=== PATIENT | female | born 1925 | race Caucasian/White ===

== ENCOUNTER 2016-07-10 19:29 | Inpatient (IN) | payer MEDICARE ==
[2016-07-10] MEDS ORDERED: SODIUM CHLORIDE 0.9% 1,000 ML IV STA (20:28)
--- NOTE | 2016-07-10 20:33 | ED ---
General Adult HPI - General Chief complaint: Weakness Stated complaint: Weakness Time Seen by Provider: 07/10/16 20:17 Source: patient, family, EMS, RN notes reviewed Mode of arrival: EMS Limitations: no limitations - History of Present Illness Initial comments: Patient is a pleasant 89-year-old female presenting to emergency Department after being found by family on the floor. It is unclear exactly when the patient ended up on the floor. Patient states she took a shower last night and was doing well. Patient states it was too difficult to get into bed and therefore laid down on the ground. Patient left the message for family this morning however message was not checked until just prior to arrival. It is unclear if the patient has been on the floor since last night or early this morning. Patient has difficulty clarifying this. Patient does have a history of atrial fibrillation however does not take blood thinner. Patient states she feels fine at this time and has no complaints. Patient states she did not fall. Patient denies syncope. - Related Data Home Medications Medication Instructions Recorded Confirmed Calcium Carbonate/Vitamin D3 2 tab PO DAILY 03/23/15 07/10/16 [Calcium 600 + Vit D Tablet] Cholecalciferol [Vitamin D3] 2,000 unit PO DAILY 03/23/15 07/10/16 Digoxin [Digox] 125 mcg PO DAILY 03/23/15 07/10/16 Diltiazem HCl [Diltiazem 24Hr ER] 120 mg PO DAILY 03/23/15 07/10/16 Simvastatin [Simvastatin] 20 mg PO HS 03/23/15 07/10/16 Ubidecarenone [Co Q-10] 100 mg PO DAILY 03/23/15 07/10/16 Aspirin 81 mg PO HS 07/10/16 07/10/16 Latanoprost Ophth [Xalatan 0.005%] 1 drop OPHTHALMIC DAILY 07/10/16 07/10/16 Potassium Chloride [Klor-Con 10] 10 meq PO DAILY 07/10/16 07/10/16 Allergies Allergy/AdvReac Type Severity Reaction Status Date / Time No Known Allergies Allergy Verified 07/10/16 20:05 Review of Systems ROS Statement: Those systems with pertinent positive or pertinent negative responses have been documented in the HPI. ROS Other: All systems not noted in ROS Statement are negative. Constitutional: Denies: fever Eyes: Denies: eye pain ENT: Denies: ear pain Respiratory: Denies: dyspnea Cardiovascular: Denies: chest pain Endocrine: Denies: fatigue Gastrointestinal: Denies: abdominal pain Genitourinary: Denies: dysuria Musculoskeletal: Denies: back pain Skin: Denies: rash Neurological: Reports: weakness Past Medical History Past Medical History: Hypertension History of Any Multi-Drug Resistant Organisms: None Reported Past Surgical History: Adenoidectomy, Appendectomy, Cholecystectomy, Orthopedic Surgery, Tonsillectomy Past Psychological History: No Psychological Hx Reported Smoking Status: Never smoker Past Alcohol Use History: None Reported Past Drug Use History: None Reported General Exam Limitations: no limitations General appearance: alert, in no apparent distress Head exam: Present: atraumatic Eye exam: Present: normal appearance, PERRL ENT exam: Present: normal oropharynx Neck exam: Present: normal inspection. Absent: tenderness Respiratory exam: Present: normal lung sounds bilaterally Cardiovascular Exam: Present: irregular rhythm GI/Abdominal exam: Present: soft. Absent: tenderness Extremities exam: Present: full ROM, tenderness (Mild tenderness left lateral hip. No pain with range of motion) Neurological exam: Present: alert, oriented X3, CN II-XII intact. Absent: motor sensory deficit Expanded Patient oriented to: Present: person, place, time Speech: Present: fluid speech Cranial nerves: EOM's Intact: Normal, Facial Sensation: Normal Cerebellar function: Finger to Nose: Normal Sensory exam: Upper Extremity Light Touch: Normal, Lower Extremity Light Touch: Normal Motor strength exam: RUE: 5, LUE: 5, RLE: 5, LLE: 5 Eye Response: (4) open spontaneously Motor Response: (6) obeys commands Verbal Response: (5) oriented Psychiatric exam: Present: normal affect, normal mood Skin exam: Absent: rash Course Vital Signs 07/10/16 07/10/16 19:32 21:28 Temperature 97.9 F Pulse Rate 115 H 110 H Respiratory 22 18 Rate Blood Pressure 169/83 143/81 O2 Sat by Pulse 96 100 Oximetry EKG Findings - EKG Comments: EKG Findings:: A. fib with rate of 110. QRS 90. QT 338. QTC 457. Normal axis. Normal QRS. No acute ST change. Medical Decision Making - Medical Decision Making Patient reexamined and resting comfortably in bed. Patient and family updated on results and plan. Case was discussed in detail with Dr. Gamboa, who will admit for Dr. Gallo. - Lab Data Result diagrams: 07/10/16 20:45 07/10/16 20:45 Lab Results 07/10/16 07/10/16 07/10/16 Range/Units 20:45 20:45 20:45 WBC 14.4 H (3.8-10.6) k/uL RBC 4.41 (3.80-5.40) m/uL Hgb 13.1 (11.4-16.0) gm/dL Hct 40.6 (34.0-46.0) % MCV 92.2 (80.0-100.0) fL MCH 29.7 (25.0-35.0) pg MCHC 32.2 (31.0-37.0) g/dL RDW 12.3 (11.5-15.5) % Plt Count 241 (150-450) k/uL Neutrophils % 90 % Lymphocytes % 5 % Monocytes % 4 % Eosinophils % 0 % Basophils % 0 % Neutrophils # 13.0 H (1.3-7.7) k/uL Lymphocytes # 0.7 L (1.0-4.8) k/uL Monocytes # 0.6 (0-1.0) k/uL Eosinophils # 0.0 (0-0.7) k/uL Basophils # 0.0 (0-0.2) k/uL PT (9.0-12.0) sec INR (<1.1) APTT (22.0-30.0) sec Sodium 137 (137-145) mmol/L Potassium 3.5 (3.5-5.1) mmol/L Chloride 98 (98-107) mmol/L Carbon Dioxide 27 (22-30) mmol/L Anion Gap 12 mmol/L BUN 29 H (7-17) mg/dL Creatinine 0.40 L (0.52-1.04) mg/dL Est GFR (MDRD) Af Amer >60 (>60 ml/min/1.73 sqM) Est GFR (MDRD) Non-Af >60 (>60 ml/min/1.73 sqM) Glucose 125 H (74-99) mg/dL Calcium 8.4 (8.4-10.2) mg/dL Phosphorus 3.3 (2.5-4.5) mg/dL Magnesium 1.9 (1.6-2.3) mg/dL Total Bilirubin 0.8 (0.2-1.3) mg/dL AST 43 H (14-36) U/L ALT 39 (9-52) U/L Alkaline Phosphatase 76 (38-126) U/L Total Creatine Kinase 631 H (30-135) U/L CK-MB (CK-2) 6.1 H* (0.0-2.4) ng/mL CK-MB (CK-2) Rel Index 1.0 Troponin I 0.019 (0.000-0.034) ng/mL Total Protein 6.1 L (6.3-8.2) g/dL Albumin 3.5 (3.5-5.0) g/dL TSH 4.620 (0.465-4.680) mIU/L Free T4 0.99 (0.78-2.19) ng/dL Free T3 pg/mL 3.0 (2.8-5.3) pg/ml Urine Color Urine Appearance (Clear) Urine pH (5.0-8.0) Ur Specific Noonan (1.001-1.035) Urine Protein (Negative) Urine Glucose (UA) (Negative) Urine Ketones (Negative) Urine Blood (Negative) Urine Nitrate (Negative) Urine Bilirubin (Negative) Urine Urobilinogen (<2.0) mg/dL Ur Leukocyte Esterase (Negative) Urine RBC (0-5) /hpf Ur Squamous Epith Cells (0-4) /hpf Urine Bacteria (None) /hpf Hyaline Casts (0-2) /lpf Urine Mucus (None) /hpf Urine Sperm (None) /hpf Digoxin <0.4 ng/mL 07/10/16 07/10/16 Range/Units 20:45 20:45 WBC (3.8-10.6) k/uL RBC (3.80-5.40) m/uL Hgb (11.4-16.0) gm/dL Hct (34.0-46.0) % MCV (80.0-100.0) fL MCH (25.0-35.0) pg MCHC (31.0-37.0) g/dL RDW (11.5-15.5) % Plt Count (150-450) k/uL Neutrophils % % Lymphocytes % % Monocytes % % Eosinophils % % Basophils % % Neutrophils # (1.3-7.7) k/uL Lymphocytes # (1.0-4.8) k/uL Monocytes # (0-1.0) k/uL Eosinophils # (0-0.7) k/uL Basophils # (0-0.2) k/uL PT 11.3 (9.0-12.0) sec INR 1.1 (<1.1) APTT 24.4 (22.0-30.0) sec Sodium (137-145) mmol/L Potassium (3.5-5.1) mmol/L Chloride (98-107) mmol/L Carbon Dioxide (22-30) mmol/L Anion Gap mmol/L BUN (7-17) mg/dL Creatinine (0.52-1.04) mg/dL Est GFR (MDRD) Af Amer (>60 ml/min/1.73 sqM) Est GFR (MDRD) Non-Af (>60 ml/min/1.73 sqM) Glucose (74-99) mg/dL Calcium (8.4-10.2) mg/dL Phosphorus (2.5-4.5) mg/dL Magnesium (1.6-2.3) mg/dL Total Bilirubin (0.2-1.3) mg/dL AST (14-36) U/L ALT (9-52) U/L Alkaline Phosphatase (38-126) U/L Total Creatine Kinase (30-135) U/L CK-MB (CK-2) (0.0-2.4) ng/mL CK-MB (CK-2) Rel Index Troponin I (0.000-0.034) ng/mL Total Protein (6.3-8.2) g/dL Albumin (3.5-5.0) g/dL TSH (0.465-4.680) mIU/L Free T4 (0.78-2.19) ng/dL Free T3 pg/mL (2.8-5.3) pg/ml Urine Color Yellow Urine Appearance Turbid H (Clear) Urine pH 6.5 (5.0-8.0) Ur Specific [place]onan 1.012 (1.001-1.035) Urine Protein 1+ H (Negative) Urine Glucose (UA) Negative (Negative) Urine Ketones 1+ H (Negative) Urine Blood Moderate H (Negative) Urine Nitrate Negative (Negative) Urine Bilirubin Negative (Negative) Urine Urobilinogen <2.0 (<2.0) mg/dL Ur Leukocyte Esterase Moderate H (Negative) Urine RBC 66 H (0-5) /hpf Ur Squamous Epith Cells 4 (0-4) /hpf Urine Bacteria Rare H (None) /hpf Hyaline Casts 21 H (0-2) /lpf Urine Mucus Many H (None) /hpf Urine Sperm Occasional H (None) /hpf Digoxin ng/mL - Radiology Data Radiology results: image reviewed (Chest x-ray shows cardiac megaly. Possible asbestosis related disease. Pelvic x-ray shows no fracture or dislocation. Retained fecal debris. Computed tomography scan the brain shows no acute hemorrhage.) Disposition Clinical Impression: Syncope, Urinary tract infection Disposition: ADMITTED IP TO THIS HOSP
[2016-07-10 20:57] LABS: Basophils % (A) 0 %; CH 31.2; Eosinophils % (A) 0 %; HCT 40.6 % (34.0-46.0); HDW 2.61; HGB 13.1 gm/dL (11.4-16.0); Luc # (Auto) 0.09; Luc % (Auto) 1; Lymphocytes # (A) 0.7 k/uL (1.0-4.8); Lymphocytes % (A) 5 %; MCH 29.7 pg (25.0-35.0); MCHC 32.2 g/dL (31.0-37.0); MCV 92.2 fL (80.0-100.0); Mean Platelet Volume 7.6; Monocytes # (A) 0.6 k/uL (0-1.0); Monocytes % (A) 4 %; Neutrophils % (A) 90 %; RBC 4.41 m/uL (3.80-5.40); RDW 12.3 % (11.5-15.5); WBC 14.4 k/uL (3.8-10.6); WBC (Perox) 14.98
[2016-07-10 21:08] LABS: INR 1.1 (<1.1); Partial Thromboplastin Time 24.4 sec (22.0-30.0); Prothrombin Time 11.3 sec (9.0-12.0)
[2016-07-10 21:10] LABS: ALT 39 U/L (9-52); AST 43 U/L (14-36); Alkaline Phosphatase 76 U/L (38-126); Anion Gap 12 mmol/L; Blood Urea Nitrogen 29 mg/dL (7-17); Calcium 8.4 mg/dL (8.4-10.2); Carbon Dioxide 27 mmol/L (22-30); Chloride 98 mmol/L (98-107); Digoxin <0.4 ng/mL; Glucose 125 mg/dL (74-99); Magnesium 1.9 mg/dL (1.6-2.3); Non-African American GFR(MDRD) >60 (>60 ml/min/1.73 sqM); Phosphorous 3.3 mg/dL (2.5-4.5); Potassium 3.5 mmol/L (3.5-5.1); Sodium 137 mmol/L (137-145); Total Bilirubin 0.8 mg/dL (0.2-1.3); Total Protein 6.1 g/dL (6.3-8.2)
[2016-07-10 21:11] LABS: Appearance,Urine Turbid (Clear); Bacteria,Urine Rare /hpf; Bilirubin,Urine Negative (Negative); Glucose,Urine (UA) Negative (Negative); Ketones,Urine 1+ (Negative); Leukocyte Esterase,Urine Moderate (Negative); Mucus,Urine Many /hpf; Nitrite,Urine Negative (Negative); PH, Urine 6.5 (5.0-8.0); Particle Count 25376; Protein,Urine 1+ (Negative); RBC,Urine 66 /hpf (0-5); Specific Gravity,Urine 1.012 (1.001-1.035); Squamous Epithelial Cell,Urine 4 /hpf (0-4); UA Billing (MACRO vs. MICRO) MICRO; Urobilinogen,Urine <2.0 mg/dL (<2.0)
--- NOTE | 2016-07-10 21:29 | CT ---
EXAMINATION TYPE: CT brain wo con DATE OF EXAM: 07/10/2016 9:09 PM COMPARISON: NONE HISTORY: weakness and fatigue CT DLP: 1047.1 mGycm Automated exposure control for dose reduction was used. FINDINGS: There is no acute intracranial hemorrhage, mass effect, or midline shift identified. There is cortica l atrophy present. Periventricular white matter demyelination is likely due to age-related chronic sm all vessel ischemia. The globes are intact and the visualized sinuses are clear. IMPRESSION: No acute intracranial hemorrhage, mass effect, or midline shift is seen.
--- NOTE | 2016-07-10 21:31 | XR ---
AP pelvis HISTORY: Trauma and pain Single frontal view of the pelvis No comparisons Bone mineralization is reduced. Joint space and alignment are maintained. Retained fecal debris prese nt throughout the distribution of the colon. Degenerative disc changes, scoliosis suspected in the amadou mbar spine. IMPRESSION: No fracture or dislocation is evident.
--- NOTE | 2016-07-10 21:33 | XR ---
EXAMINATION TYPE: XR chest 2V DATE OF EXAM: 07/10/2016 9:11 PM COMPARISON: NONE HISTORY: Fall, hypertension TECHNIQUE: Frontal and lateral views of the chest are obtained. FINDINGS: Patient is rotated. Apical pleural thickening, pleural calcification is noted. Heart may b e enlarged. No evident pneumonia, pneumothorax, or pleural effusion. Pulmonary vascularity and esther w ithin normal limits. Rib deformities are questionable age. Bone mineralization is reduced. IMPRESSION: Rotated exam. Cardiomegaly, possible asbestos related disease, comparison with old chest x-rays if available would be of benefit. Consider PA and lateral chest x-ray follow-up if patient is clinically stable. Difficult to exclude left-sided rib fractures.
[2016-07-10 21:35] LABS: Troponin I 0.019 ng/mL (0.000-0.034)
[2016-07-10 21:48] LABS: Creatine Kinase MB 6.1 ng/mL (0.0-2.4)
[2016-07-10] MEDS ORDERED: NALOXONE 0.4 MG/ML 1 ML VIAL IV PRN (22:10)
[2016-07-10] MEDS: SODIUM CHLORIDE 0.9% 1,000 ML IV SCH (23:00)
[2016-07-11] MEDS ORDERED: DILTIAZEM CD 120 MG CAP.ER.24H PO STA (01:01)
[2016-07-11 03:55] LABS: Creatine Kinase MB 4.6 ng/mL (0.0-2.4)
[2016-07-11 07:24] LABS: Amorphous Sediment,Urine Occasional /hpf; Appearance,Urine Cloudy (Clear); Bilirubin,Urine Negative (Negative); Glucose,Urine (UA) Negative (Negative); Ketones,Urine 1+ (Negative); Leukocyte Esterase,Urine Negative (Negative); Nitrite,Urine Negative (Negative); Particle Count 9714; Protein,Urine Trace (Negative); RBC,Urine 3 /hpf (0-5); Specific Gravity,Urine 1.011 (1.001-1.035); UA Billing (MACRO vs. MICRO) MICRO; Urobilinogen,Urine <2.0 mg/dL (<2.0)
[2016-07-11] MEDS ORDERED: NON-FORMULARY DRUG (Ubidecarenone [Co Q-10] 100 MG) PO SCH (09:00)
[2016-07-11] MEDS ORDERED: DIGOXIN 125 MCG TAB PO SCH (09:00)
[2016-07-11] MEDS: CHOLECALCIFEROL 1,000 UNIT TAB PO SCH (09:04)
[2016-07-11] MEDS: DILTIAZEM CD 120 MG CAP.ER.24H PO SCH (09:04)
[2016-07-11] MEDS: CALCIUM CARB-VIT D 500MG-200UN 1 EACH TAB PO SCH (09:05)
[2016-07-11] MEDS: FAMOTIDINE 20 MG TAB PO SCH ×2 (09:05→20:49)
[2016-07-11] MEDS: POTASSIUM CHLORIDE ER 10 MEQ TAB.ER.PRT PO SCH (09:05)
[2016-07-11] MEDS: SODIUM CHLORIDE 0.9% 1,000 ML IV SCH ×3 (09:06→23:12)
[2016-07-11 11:03] LABS: Creatine Kinase MB 3.7 ng/mL (0.0-2.4)
--- NOTE | 2016-07-11 11:39 | ECHOF ---
Referral Reason:Syncope MEASUREMENTS -------- HEIGHT: 152.4 cm WEIGHT: 43.1 kg BP: 139/75 RVIDd: 2.7 cm (< 3.3) IVSd: 1.2 cm (0.6 - 1.1) LVIDd: 3.0 cm (3.9 - 5.3) LVPWd: 1.2 cm (0.6 - 1.1) IVSs: 1.4 cm LVIDs: 2.1 cm LVPWs: 1.7 cm LA Diam: 4.0 cm (2.7 - 3.8) LAESV Index (A-L): 47.67 ml/m Ao Diam: 3.0 cm (2.0 - 3.7) AV Cusp: 1.8 cm (1.5 - 2.6) LA Diam: 3.9 cm (2.7 - 3.8) MV EXCURSION: 16.269 mm (> 18.000) MV EF SLOPE: 106 mm/s (70 - 150) EPSS: 0.8 cm RAP: 5.00 mmHg RVSP: 31.50 mmHg FINDINGS -------- Atrial fibrillation. This was a technically good study. There is borderline concentric left ventricular hypertrophy. Overall left ventricular systolic function is normal with, an EF between 55 - 60 %. The right ventricle is normal in size. LA is severely dilated >40 ml/m2 RA appears enlarged. Aortic valve is trileaflet and is mildly thickened. The mitral valve leaflets are mildly thickened. Mild mitral annular calcification present. [id number]-yk-[id number] mitral regurgitation is present. Mild tricuspid regurgitation present. The right ventricular systolic pressure, as measured by Doppler, is 31.50mmHg. Trace/mild (physiologic) pulmonic regurgitation. The aortic root size is normal. Normal inferior vena cava with normal inspiratory collapse consistent with estimated right atrial pressure of 5 mmHg. The pericardium is normal. CONCLUSIONS -------- 1. Atrial fibrillation. 2. Mild mitral annular calcification present. 3. Ttbe-zh-[id number] mitral regurgitation is present. 4. Mild tricuspid regurgitation present. 5. The right ventricular systolic pressure, as measured by Doppler, is 31.50mmHg. 6. Trace/mild (physiologic) pulmonic regurgitation. 7. The aortic root size is normal. 8. The pericardium is normal. 9. This was a technically good study. 10. There is borderline concentric left ventricular hypertrophy. 11. Overall left ventricular systolic function is normal with, an EF between 55 - 60 %. 12. The right ventricle is normal in size. 13. LA is severely dilated >40 ml/m2 14. RA appears enlarged. 15. Aortic valve is trileaflet and is mildly thickened. 16. The mitral valve leaflets are mildly thickened. CARDIOVASCULAR TECH: Lina Barlow RDCS
--- NOTE | 2016-07-11 11:52 | P.HPIM ---
History of Present Illness H&P Date: 07/11/16 Chief Complaint: Fall 84-year-old lady with history of atrial fibrillation kyphoscoliosis is admitted to the hospital after being found on the floor by his son. She apparently was in good health until Saturday patient went to [place] by car and returned on Saturday evening. Patient stated that she was not eating her usual amount of food or oral intake. Patient apparently went to take a shower on the second floor and that was last evening she remembered. Patient denies having any dizziness at this time. Patient denies having any pain in any of her extremities. In the ER a computed tomography scan of the head was done which does not reveal any abnormality. A pelvis x-ray was also negative for any occult fractures. Patient currently states to be feeling significantly better. Denies having any urinary urgency or frequency. Denies having any abdominal pain fevers nausea vomiting or diarrhea as well. The yszidlkk-my-lel was at bedside who states that her oral intake is significantly low states that her caloric intake is maybe around 800 everette per day. Patient also states to have decreased oral intake in regards to fluids. Review of Systems All systems: negative (noted In HPI) Past Medical History Past Medical History: Atrial Fibrillation, CVA/TIA, Hearing Disorder / Deafness , Hypertension, Rheumatoid Arthritis (RA) Additional Past Medical History / Comment(s): Patient says she had a "questionable stroke" but was not "disabled by it." History of Any Multi-Drug Resistant Organisms: None Reported Past Surgical History: Adenoidectomy, Appendectomy, Cholecystectomy, Orthopedic Surgery, Tonsillectomy Past Anesthesia/Blood Transfusion Reactions: No Reported Reaction Past Psychological History: No Psychological Hx Reported Smoking Status: Never smoker Past Alcohol Use History: Occasional Additional Past Alcohol Use History / Comment(s): Says she occasionally has a glass of wine. Past Drug Use History: None Reported - Past Family History Sister(s) Additional Family Medical History / Comment(s): Brain tumor- in her 50's. Medications and Allergies Home Medications Medication Instructions Recorded Confirmed Type Calcium Carbonate/Vitamin D3 2 tab PO DAILY 03/23/15 07/10/16 History [Calcium 600 + Vit D Tablet] Cholecalciferol [Vitamin D3] 2,000 unit PO DAILY 03/23/15 07/10/16 History Digoxin [Digox] 125 mcg PO DAILY 03/23/15 07/10/16 History Diltiazem HCl [Diltiazem 24Hr ER] 120 mg PO DAILY 03/23/15 07/10/16 History Simvastatin [Simvastatin] 20 mg PO HS 03/23/15 07/10/16 History Ubidecarenone [Co Q-10] 100 mg PO DAILY 03/23/15 07/10/16 History Aspirin 81 mg PO HS 07/10/16 07/10/16 History Latanoprost Ophth [Xalatan 0.005%] 1 drop OPHTHALMIC DAILY 07/10/16 07/10/16 History Potassium Chloride [Klor-Con 10] 10 meq PO DAILY 07/10/16 07/10/16 History Allergies Allergy/AdvReac Type Severity Reaction Status Date / Time No Known Allergies Allergy Verified 07/10/16 20:05 Physical Exam Vitals: Vital Signs Temp Pulse Pulse Resp BP BP Pulse Ox 07/11/16 08:00 97.6 F 98 18 118/64 98 07/11/16 04:00 97.4 F L 109 H 16 139/75 99 07/11/16 00:15 98.5 F 110 H 16 125/74 98 07/10/16 23:17 97.2 F L 105 H 16 138/67 98 07/10/16 22:42 98.5 F 110 H 18 125/74 98 07/10/16 22:25 97.9 F 102 H 16 128/89 94 L Intake and Output 07/10/16 07/11/16 07/11/16 22:59 06:59 14:59 Intake Total 800 Output Total 1700 100 Balance -900 -100 Intake: IV 800 Sodium Chloride 0.9% 1, 800 000 ml @ 100 mls/hr IV . Q10H STA Rx#:[id number] Oral 0 Output: Urine 1700 100 Other: Voiding Method Incontinent # Bowel Movements 1 Weight 43.4 kg 43.2 kg 43.2 kg Patient Weight 07/12/16 06:59 Weight 43.2 kg Gen Appearance alert oriented 3 in no distress Lungs currently clear to auscultation Abdomen is soft nontender no organomegaly Neurologically no focal motor or sensory deficit patient Heart regular rate and rhythm no murmurs appreciated Results CBC & Chem 7: 07/10/16 20:45 07/10/16 20:45 Labs: Abnormal Lab Results - Last 24 Hours (Table) 07/11/16 07/11/16 07/11/16 Range/Units 03:06 05:20 09:21 Total Creatine Kinase 568 H 496 H (30-135) U/L CK-MB (CK-2) 4.6 H* 3.7 H* (0.0-2.4) ng/mL Urine Appearance Cloudy H (Clear) Urine Protein Trace H (Negative) Urine Ketones 1+ H (Negative) Amorphous Sediment Occasional H (None) /hpf Thrombosis Risk Factor Assmnt - Choose All That Apply Each Risk Factor Represents 3 Points: Age 75 years or older Thrombosis Risk Factor Assessment Total Risk Factor Score: 3 Thrombosis Risk Factor Assessment Level: Moderate Risk Assessment and Plan Plan: #1 fall appears secondary to presyncope likely from dehydration. Vasovagal episode #2 history of chronic atrial fibrillation #3 kyphoscoliosis #4 rheumatoid arthritis #5 history of hypertension #6 leukocytosis likely reactive Plan We'll have PT and OT consulted. A dietitian to be consulted in regards to caloric intake. Patient will have orthostatics done. Continue IV fluids. I will discontinue that her back as patient does not have any symptoms. Patient did have significant amount of hyaline casts which is diagnostic in regards to being dehydrated. Continue ongoing care will likely discharge the patient next 24-48 hours.
[2016-07-11] MEDS: LATANOPROST 0.005% OPHTH DROPS 2.5 ML BTL BOTH EYES SCH (15:51)
[2016-07-11] MEDS: ASPIRIN 81 MG CHEW PO SCH (20:49)
[2016-07-11] MEDS: ATORVASTATIN 10 MG TAB PO SCH (20:49)
--- NOTE | 2016-07-11 20:50 | P.CNNES ---
History of Present Illness Consult date: 07/11/16 Reason for Consult: Patient with vasovagal syncope History of Present Illness: This patient is a 89-year-old right-handed white female who was admitted to Hospital after being found collapsed in her home. Patient is living alone in her own home. Apparently she was in good health Saturday and had recently made a trip to [place] to visit with family and friends. She was not eating very much and had a hard time getting back on track after returning home on 2016. Apparently she had gone up to use the bathroom and had difficulty to get onto the commode. She did feel extremely weak. She denies collapsing to the floor but states that she slowly lay down on the floor to wait for some help. Apparently she has neighbors who will watch her closely on a daily basis. They noted that she was not opening her blinds in her bedroom and they did come to check on her. They found her on the floor and immediately called EMS. She was brought into the emergency room where she was further evaluated by Dr. Rogel and was sent for a computed tomography scan of the brain. A CAT scan of the brain was negative for any acute stroke or hemorrhage. Patient does have a history of chronic atrial fibrillation. She once again denied any actual syncopal episode associated with this recent spell. She is also been treated in has a history of TIA symptoms in the past. She was also sent for laboratory testing in the emergency room and had evidence of a severe dehydration. She was started on IV fluids. She has had poor oral fluid intake over the last 2 weeks. She does have a history of chronic atrial fibrillation with good ventricular response. She has not had any recent strokelike symptoms. Since admission to the hospital she has noted improvement in her overall strength. She apparently also is nutritionally poor diet maintained patient and does require the use of ensure on a daily basis at home. Patient does apparently live alone in her home and has not had any similar episodes recently. She did undergo routine EEG today for further evaluation of syncope. This EEG is normal for age. She does seem to show improvement overall since admission with aggressive IV hydration. Neurology is now been consulted for further evaluation and recommendations. Review of Systems Constitutional: Denies chills, Denies fever Eyes: denies blurred vision, denies pain Ears, nose, mouth and throat: Denies headache, Denies sore throat Cardiovascular: Denies chest pain, Denies shortness of breath Respiratory: Denies cough Gastrointestinal: Denies abdominal pain, Denies diarrhea, Denies nausea, Denies vomiting Genitourinary: Denies dysuria, Denies hematuria Musculoskeletal: Denies myalgias Integumentary: Denies pruritus, Denies rash Neurological: Reports syncope, Denies numbness, Denies weakness Psychiatric: Denies anxiety, Denies depression Endocrine: Denies fatigue, Denies weight change Past Medical History Past Medical History: Atrial Fibrillation, CVA/TIA, Hearing Disorder / Deafness , Hypertension, Rheumatoid Arthritis (RA) Additional Past Medical History / Comment(s): Patient says she had a "questionable stroke" but was not "disabled by it." History of Any Multi-Drug Resistant Organisms: None Reported Past Surgical History: Adenoidectomy, Appendectomy, Cholecystectomy, Orthopedic Surgery, Tonsillectomy Past Anesthesia/Blood Transfusion Reactions: No Reported Reaction Past Psychological History: No Psychological Hx Reported Smoking Status: Never smoker Past Alcohol Use History: Occasional Additional Past Alcohol Use History / Comment(s): Says she occasionally has a glass of wine. Past Drug Use History: None Reported - Past Family History Sister(s) Additional Family Medical History / Comment(s): Brain tumor- in her 50's. Medications and Allergies Home Medications Medication Instructions Recorded Confirmed Type Calcium Carbonate/Vitamin D3 2 tab PO DAILY 03/23/15 07/10/16 History [Calcium 600 + Vit D Tablet] Cholecalciferol [Vitamin D3] 2,000 unit PO DAILY 03/23/15 07/10/16 History Digoxin [Digox] 125 mcg PO DAILY 03/23/15 07/10/16 History Diltiazem HCl [Diltiazem 24Hr ER] 120 mg PO DAILY 03/23/15 07/10/16 History Simvastatin [Simvastatin] 20 mg PO HS 03/23/15 07/10/16 History Ubidecarenone [Co Q-10] 100 mg PO DAILY 03/23/15 07/10/16 History Aspirin 81 mg PO HS 07/10/16 07/10/16 History Latanoprost Ophth [Xalatan 0.005%] 1 drop OPHTHALMIC DAILY 07/10/16 07/10/16 History Potassium Chloride [Klor-Con 10] 10 meq PO DAILY 07/10/16 07/10/16 History Allergies Allergy/AdvReac Type Severity Reaction Status Date / Time No Known Allergies Allergy Verified 07/10/16 20:05 Physical Examination - Vital Signs Vital Signs: Vital Signs Temp Pulse Pulse Resp BP BP BP 07/11/16 12:37 115/59 07/11/16 12:00 89 18 07/11/16 08:02 07/11/16 08:00 97.6 F 98 18 118/64 07/11/16 04:00 97.4 F L 109 H 16 139/75 07/11/16 00:15 98.5 F 110 H 16 125/74 07/10/16 23:17 97.2 F L 105 H 16 138/67 07/10/16 22:42 98.5 F 110 H 18 125/74 07/10/16 22:25 97.9 F 102 H 16 128/89 BP BP Pulse Ox 07/11/16 12:37 104/62 94/57 07/11/16 12:00 94/57 96 07/11/16 08:02 96 07/11/16 08:00 98 07/11/16 04:00 99 07/11/16 00:15 98 07/10/16 23:17 98 07/10/16 22:42 98 07/10/16 22:25 94 L Intake and Output 07/11/16 07/11/16 07/11/16 06:59 14:59 22:59 Intake Total 800 Output Total 1700 100 500 Balance -900 -100 -500 Intake: IV 800 Sodium Chloride 0.9% 1, 800 000 ml @ 100 mls/hr IV . Q10H STA Rx#:[id number] Oral 0 Output: Urine 1700 100 500 Straight 500 Other: Voiding Method Incontinent # Bowel Movements 1 Weight 43.2 kg 43.2 kg Patient Weight 07/12/16 06:59 Weight 43.2 kg - Constitutional General appearance: cooperative - EENT EENT: PERRL, mucous membranes moist - Respiratory Respiratory: lungs clear, normal breath sounds - Cardiovascular Cardiovascular: normal S1, normal S2 Extremities: no peripheral edema bilaterally - Gastrointestinal Gastrointestinal: normoactive bowel sounds - Integumentary Integumentary: normal - Neurologic Cranial nerve examination: PERRL, EOMI, VFF, V1/V2/V3 grossly intact, face symmetric, tongue midline, intact gag reflex, intact corneal reflex, normal palatal elevation Speech examination: intact Sensorimotor examination: intact Detailed motor examination: grossly full strength in all extremities Detailed sensory examination: intact Reflex and gait examination: intact Reflexes: 1+: ankle, bicep, knee, tricep - Musculoskeletal Musculoskeletal: no pain - Psychiatric Psychiatric: mood/affect appropriate, cooperative Results - Laboratory Findings CBC and BMP: 07/10/16 20:45 07/10/16 20:45 Abnormal Lab Findings: Abnormal Labs 07/11/16 07/11/16 07/11/16 03:06 05:20 09:21 Total Creatine Kinase 568 H 496 H CK-MB (CK-2) 4.6 H* 3.7 H* Urine Appearance Cloudy H Urine Protein Trace H Urine Ketones 1+ H Amorphous Sediment Occasional H Assessment and Plan (1) Vasovagal syncope Status: Acute Code(s): R55 - SYNCOPE AND COLLAPSE (2) Urinary tract infection Status: Acute Code(s): N39.0 - URINARY TRACT INFECTION, SITE NOT SPECIFIED Plan: This patient is a 89-year-old female who was admitted to hospital after being found at home collapsed on the floor. Patient denies passing out but actually felt weak and late herself onto the floor in her home. Neighbors found her and immediately called EMS and she was brought into the emergency room for further evaluation. Maria Guadalupe when a computed tomography scan of the brain which was negative for acute stroke or hemorrhage. She was initially admitted to hospital for further evaluation. She underwent routine EEG today which was reviewed. Her EEG is normal for age. There was no evidence of any epileptic seizure focus. Patient has been extremely dehydrated as has been noted on her urinalysis. She has been started on IV hydration and is shown significant improvement since admission to hospital. Her neurological examination at this time is nonfocal. This patient likely had a vasovagal syncope secondary to dehydration. We will continue close neurological follow-up for this patient. She does have a history of underlying atrial fibrillation which remains rate controlled. Her overall prognosis at this time remains fair. Time with Patient: Greater than 30
[2016-07-12] MEDS: SODIUM CHLORIDE 0.9% 1,000 ML IV SCH ×3 (06:42→23:34)
[2016-07-12] MEDS: CHOLECALCIFEROL 1,000 UNIT TAB PO SCH (07:31)
[2016-07-12] MEDS: LATANOPROST 0.005% OPHTH DROPS 2.5 ML BTL BOTH EYES SCH (07:31)
[2016-07-12] MEDS: DILTIAZEM CD 120 MG CAP.ER.24H PO SCH (07:31)
[2016-07-12] MEDS: CALCIUM CARB-VIT D 500MG-200UN 1 EACH TAB PO SCH (07:31)
[2016-07-12] MEDS: POTASSIUM CHLORIDE ER 10 MEQ TAB.ER.PRT PO SCH (07:32)
[2016-07-12] MEDS: FAMOTIDINE 20 MG TAB PO SCH ×2 (07:32→20:05)
--- NOTE | 2016-07-12 12:24 | EEG ---
DATE OF SERVICE: 07/11/2016 INDICATIONS FOR EXAMINATION: This patient is an 89-year-old female being evaluated for syncope and collapse. AGE: 89Y EEG FINDINGS: A routine 21-channel, awake digital EEG recording was accomplished utilizing the 10 to 20 international system with bipolar and referential montages. The background activity in the most alert resting state consists of a low to medium amplitude, fairly well-developed and well-sustained 7 to 8 Hz activity over the posterior head regions. This posterior rhythm attenuates to eye opening. There is a small amount of low amplitude 18 to 20 Hz beta activity seen maximally over the anterior head regions. Muscle and movement artifact was observed on a few occasions during the tracing. Hyperventilation was not performed. Photic stimulation at flash frequencies of 2 to 30 Hz produced a minimal occipital driving response. No epileptiform discharges were seen. IMPRESSION: This EEG is within normal limits for the patient's age. The EEG failed to reveal any focal, lateralized or epileptiform abnormalities. Clinical correlation is recommended.
--- NOTE | 2016-07-12 19:37 | P.PN ---
Subjective Principal diagnosis: fall 82-year-old female is admitted to the hospital after sustaining a fall. Is attributed to be likely vasovagal in nature. Patient was also noted to have urinary retention. She currently has a Abarca catheter placed. Patient denies having any urinary urgency or frequency. However, did note some blood in the urine. Currently states to be feeling better denies having any fevers chills nausea vomiting or diarrhea. Objective - Vital Signs Vital signs: Vital Signs Temp 97.3 F L 07/12/16 16:00 Pulse 90 07/12/16 16:00 Resp 18 07/12/16 16:00 BP 113/53 07/12/16 16:00 Pulse Ox 97 07/12/16 16:00 Intake & Output 07/12/16 07/12/16 07/13/16 06:59 18:59 06:59 Intake Total 1240 940 Output Total 1300 775 Balance -60 165 Weight 45.1 kg Intake: IV 840 700 Sodium Chloride 0.9% 1, 840 700 000 ml @ 120 mls/hr IV . Q8H20M JAV[facility] Rx#:[id number] Oral 400 240 Output: Urine 1300 775 Straight 500 Other: Voiding Method Indwelling Catheter Indwelling Catheter - Exam Physical exam Abdomen soft nontender no organomegaly Heart S1 and S2 heart regular rate and rhythm no murmurs appreciated Lungs good air entry clear to auscultation Neuro no focal motor or sensory deficits noted. Cranial nerves II-12 intact General in no acute distress alert oriented [address] - Labs CBC & Chem 7: 07/10/16 20:45 07/10/16 20:45 Assessment and Plan Plan: #1 fall appears secondary to presyncope likely from dehydration. Vasovagal episode #2 history of chronic atrial fibrillation #3 kyphoscoliosis #4 rheumatoid arthritis #5 history of hypertension #6 leukocytosis likely secondary to acute cystitis causing urinary retention. Plan We'll have PT and OT consulted. A dietitian to be consulted in regards to caloric intake. Patient appears to be improved. With urinary retention was attributed to acute cystitis and likely discharge the patient a course of antibodies. Patient will benefit from subacute rehabilitation.
[2016-07-12] MEDS: ATORVASTATIN 10 MG TAB PO SCH (20:05)
[2016-07-12] MEDS: ASPIRIN 81 MG CHEW PO SCH (20:05)
--- NOTE | 2016-07-13 00:58 | P.PN ---
Subjective This patient is a 89 year old female being followed for recent syncopal episode and collapse. The patient was extremely dehydrated on admission to hospital. She had recently taken a long trip to [place] and had been not paying attention to her regular diet. She came back and was very dehydrated and had an episode of collapse while at home. Neighbors found her and called EMS and she was admitted to the hospital. Patient has evidence of acute cystitis which also may have contributed to dehydration. She was admitted for further evaluation of syncope versus seizure. She underwent a routine EEG today which was reviewed and is entirely normal with no evidence of epileptic seizure focus. The patient is doing much better today after receiving IV hydration and antibiotic therapy. She mentions that she is being considered for transfer to a subacute rehab for short period before returning home. Her neurological examination remains nonfocal. She does appear to be more awake and alert and is following all commands. We will continue close neurological follow-up for the patient during this admission. Objective - Vital Signs Vital signs: Vital Signs Temp 97.3 F L 07/12/16 16:00 Pulse 90 07/12/16 16:00 Resp 18 07/12/16 16:00 BP 113/53 07/12/16 16:00 Pulse Ox 97 07/12/16 16:00 Intake & Output 07/12/16 07/12/16 07/13/16 06:59 18:59 06:59 Intake Total 1240 940 Output Total 1300 775 Balance -60 165 Weight 45.1 kg Intake: IV 840 700 Sodium Chloride 0.9% 1, 840 700 000 ml @ 120 mls/hr IV . Q8H20M [facility] Rx#:[id number] Oral 400 240 Output: Urine 1300 775 Straight 500 Other: Voiding Method Indwelling Catheter Indwelling Catheter - Exam Physical examination: PHYSICAL EXAMINATION: Patient is resting comfortably in bed. VITAL SIGNS: Blood pressure is [110/62]. Heart rate is [97]. Respiration is [18] . Temperature is [98.5]. HEENT: Head is atraumatic, neck is supple, there were no carotid bruits. CHEST: Lungs are clear to auscultation and percussion. CARDIAC: S1, S2 normal rate and rhythm. There is no murmur. ABDOMEN: Soft and nontender. Bowel sounds are present. EXTREMITIES: There is no pedal edema. Peripheral pulses are present. NEUROLOGICAL EXAMINATION: MENTAL STATUS: Patient is awake, alert, oriented x3. Speech is fluent with no evidence of aphasia or dysarthria. Memory and intellectual function are appropriate for age. CRANIAL NERVE EXAMINATION: Cranial nerves 2 through 12 are grossly intact. MOTOR EXAMINATION: There was no pronator drift. Muscle tone is normal. Muscle strength testing reveal 4/5 strength throughout. SENSORY EXAMINATION: Intact to pinprick, light touch, vibration and proprioception. DEEP TENDON REFLEXES: 1+ and symmetric. Plantar response is flexor bilaterally. COORDINATION AND GAIT: Finger-nose testing and rapid alternating movements are normal. Patient has a normal based gait. - Labs CBC & Chem 7: 07/10/16 20:45 07/10/16 20:45 Assessment and Plan (1) Vasovagal syncope Status: Acute Code(s): R55 - SYNCOPE AND COLLAPSE (2) Urinary tract infection Status: Acute Code(s): N39.0 - URINARY TRACT INFECTION, SITE NOT SPECIFIED Plan: This patient is a 89-year-old female who was admitted to hospital after being found at home collapsed on the floor. Patient denies passing out but actually felt weak and late herself onto the floor in her home. Neighbors found her and immediately called EMS and she was brought into the emergency room for further evaluation. Maria Guadalupe when a computed tomography scan of the brain which was negative for acute stroke or hemorrhage. She was initially admitted to hospital for further evaluation. She underwent routine EEG today which was reviewed. Her EEG is normal for age. There was no evidence of any epileptic seizure focus. Patient has been extremely dehydrated as has been noted on her urinalysis. She has been started on IV hydration and is shown significant improvement since admission to hospital. Her neurological examination at this time is nonfocal. This patient likely had a vasovagal syncope secondary to dehydration. We will continue close neurological follow-up for this patient. We did review her recent EEG study. Her EEG is normal for age. There was no evidence of any epileptic seizure focus. She has responded very well to IV hydration. She is also being treated for acute cystitis. She is being considered for transfer to subacute rehabilitation for a short period of time before returning home. She does have a history of underlying atrial fibrillation which remains rate controlled. Her overall prognosis at this time remains fair. Patient's overall neurological status has improved since admission. We will continue to monitor her progress for a closely.
[2016-07-13] MEDS: LATANOPROST 0.005% OPHTH DROPS 2.5 ML BTL BOTH EYES SCH (09:05)
[2016-07-13] MEDS: POTASSIUM CHLORIDE ER 10 MEQ TAB.ER.PRT PO SCH (09:06)
[2016-07-13] MEDS: DILTIAZEM CD 120 MG CAP.ER.24H PO SCH (09:06)
[2016-07-13] MEDS: FAMOTIDINE 20 MG TAB PO SCH ×2 (09:06→19:56)
[2016-07-13] MEDS: CHOLECALCIFEROL 1,000 UNIT TAB PO SCH (09:07)
[2016-07-13] MEDS: CALCIUM CARB-VIT D 500MG-200UN 1 EACH TAB PO SCH (09:07)
--- NOTE | 2016-07-13 11:08 | P.DS ---
Providers Date of admission: 07/10/16 22:11 Expected date of discharge: 07/13/16 Attending physician: Micha Gamboa Primary care physician: Seth Gallo [facility] Course: #1 fall appears secondary to presyncope likely from dehydration. Vasovagal episode #2 history of chronic atrial fibrillation #3 kyphoscoliosis #4 rheumatoid arthritis #5 history of hypertension #6 leukocytosis likely secondary to acute cystitis causing urinary retention. Patient was admitted to the hospital with the vasovagal episode. Patient was given IV fluids. On the initial urinalysis patient had trace bacteria however had significant amount hyaline casts consistent with dehydration. Patient apparently traveled to [place] prior to being admitted to the hospital states her oral intake has been significantly low. Patient also was noted to have urinary retention which was attribute it to acute cystitis. A Echavarrai catheter was inserted however trials of removing the catheter failed. Hence patient should continue having a Echavarria catheter for at least one week. Patient is to continue Levaquin for 7 days. A trial of of discontinue Echavarria should be tried at the end of 7 days if patient continues to retain urine patient should be referred to urology. A consultation for Dr. Seth Harper has been placed on the discharge. On the day of discharge lungs good air entry clear to auscultation heart irregularly irregular no murmurs appreciated Abdomen is soft nontender no organomegaly Lower extremity is no edema appreciated Plan - Discharge Summary New Discharge Prescriptions: Diltiazem Cd [Cardizem CD] 180 mg PO DAILY #30 cap.er.24h Levofloxacin [Levaquin] 500 mg PO DAILY #7 tab Discharge Medication List Calcium Carbonate/Vitamin D3 [Calcium 600-Vit D3 400 Tablet] 2 tab PO DAILY [History] Cholecalciferol [Vitamin D3] 2,000 unit PO DAILY 03/23/15 [History] Simvastatin 20 mg PO HS 03/23/15 [History] Ubidecarenone [Co Q-10] 100 mg PO DAILY 03/23/15 [History] Aspirin 81 mg PO HS 07/10/16 [History] Latanoprost Ophth [Xalatan 0.005%] 1 drop OPHTHALMIC DAILY 07/10/16 [History] Potassium Chloride [Klor-Con 10] 10 meq PO DAILY 07/10/16 [History] Diltiazem Cd [Cardizem CD] 180 mg PO DAILY #30 cap.er.24h 07/13/16 [Rx] Levofloxacin [Levaquin] 500 mg PO DAILY #7 tab 07/13/16 [Rx] Follow up Appointment(s)/Referral(s): Seth Hidalgo MD [STAFF PHYSICIAN] - 1 Week Seth Gallo MD [Primary Care Provider] - 1-2 days Activity/Diet/Wound Care/Special Instructions: Discontinue echavarria catheter in 1 week, if pt continues to retain, refer to urology. Discharge Disposition: TRANSFER TO SNF/ECF
[2016-07-13 13:00] VITALS: BMI 19.4
--- NOTE | 2016-07-13 19:24 | P.PN ---
Subjective This patient is a 89 year old female being followed for recent syncopal episode and collapse. The patient was extremely dehydrated on admission to hospital. She had recently taken a long trip to [place] and had been not paying attention to her regular diet. She came back and was very dehydrated and had an episode of collapse while at home. Neighbors found her and called EMS and she was admitted to the hospital. Patient has evidence of acute cystitis which also may have contributed to dehydration. She was admitted for further evaluation of syncope versus seizure. She underwent a routine EEG today which was reviewed and is entirely normal with no evidence of epileptic seizure focus. The patient is doing much better today after receiving IV hydration and antibiotic therapy. She mentions that she is being considered for transfer to a subacute rehab for short period before returning home. Her neurological examination remains nonfocal. She does appear to be more awake and alert and is following all commands. The patient is anticipating transferred to the subacute rehab in [place]. She states that she is waiting for a bed assignment at [facility]. She continues to do well and has had no further vasovagal episodes or syncope. We will continue close neurological follow-up for the patient during this admission. Objective - Vital Signs Vital signs: Vital Signs Temp 98.1 F 07/13/16 11:38 Pulse 99 07/13/16 11:38 Resp 20 07/13/16 11:38 BP 126/69 07/13/16 11:38 Pulse Ox 96 07/13/16 11:38 Intake & Output 07/12/16 07/13/16 07/13/16 18:59 06:59 18:59 Intake Total 940 660 Output Total 775 700 277 Balance 165 -700 383 Weight 45.2 kg 45.2 kg Intake: IV 700 Sodium Chloride 0.9% 1, 700 000 ml @ 120 mls/hr IV . Q8H20M [facility] Rx#:[id number] Oral 240 660 Output: Urine 775 700 275 Uretheral (Abarca) 700 Stool 2 Other: Voiding Method Indwelling Catheter Indwelling Catheter Indwelling Catheter - Exam Physical examination: PHYSICAL EXAMINATION: Patient is resting comfortably in bed. VITAL SIGNS: Blood pressure is [117/58]. Heart rate is [90]. Respiration is [20] . Temperature is [98.5]. HEENT: Head is atraumatic, neck is supple, there were no carotid bruits. CHEST: Lungs are clear to auscultation and percussion. CARDIAC: S1, S2 normal rate and rhythm. There is no murmur. ABDOMEN: Soft and nontender. Bowel sounds are present. EXTREMITIES: There is no pedal edema. Peripheral pulses are present. NEUROLOGICAL EXAMINATION: MENTAL STATUS: Patient is awake, alert, oriented x3. Speech is fluent with no evidence of aphasia or dysarthria. Memory and intellectual function are appropriate for age. CRANIAL NERVE EXAMINATION: Cranial nerves 2 through 12 are grossly intact. MOTOR EXAMINATION: There was no pronator drift. Muscle tone is normal. Muscle strength testing reveal 4/5 strength throughout. SENSORY EXAMINATION: Intact to pinprick, light touch, vibration and proprioception. DEEP TENDON REFLEXES: 1+ and symmetric. Plantar response is flexor bilaterally. COORDINATION AND GAIT: Finger-nose testing and rapid alternating movements are normal. Patient has a normal based gait. - Labs CBC & Chem 7: 07/10/16 20:45 07/10/16 20:45 Assessment and Plan (1) Vasovagal syncope Status: Acute Code(s): R55 - SYNCOPE AND COLLAPSE (2) Urinary tract infection Status: Acute Code(s): N39.0 - URINARY TRACT INFECTION, SITE NOT SPECIFIED Plan: This patient is a 89-year-old female who was admitted to hospital after being found at home collapsed on the floor. Patient denies passing out but actually felt weak and late herself onto the floor in her home. Neighbors found her and immediately called EMS and she was brought into the emergency room for further evaluation. Maria Guadalupe when a computed tomography scan of the brain which was negative for acute stroke or hemorrhage. She was initially admitted to hospital for further evaluation. She underwent routine EEG today which was reviewed. Her EEG is normal for age. There was no evidence of any epileptic seizure focus. Patient has been extremely dehydrated as has been noted on her urinalysis. She has been started on IV hydration and is shown significant improvement since admission to hospital. Her neurological examination at this time is nonfocal. This patient likely had a vasovagal syncope secondary to dehydration. We will continue close neurological follow-up for this patient. We did review her recent EEG study. Her EEG is normal for age. There was no evidence of any epileptic seizure focus. She has responded very well to IV hydration. She is also being treated for acute cystitis. She is being considered for transfer to subacute rehabilitation for a short period of time before returning home. She does have a history of underlying atrial fibrillation which remains rate controlled. Her overall prognosis at this time remains fair. The patient is awaiting transfer to [facility] for ongoing subacute rehab. She continues to do well and has had no further vasovagal syncopal episodes. Patient's overall neurological status has improved since admission. We will continue to monitor her progress for a closely.
[2016-07-13 19:54] VITALS: RESP 18
[2016-07-13] MEDS: SODIUM CHLORIDE 0.9% 1,000 ML IV SCH (19:55)
[2016-07-13] MEDS: ASPIRIN 81 MG CHEW PO SCH (19:56)
[2016-07-13] MEDS: ATORVASTATIN 10 MG TAB PO SCH (19:56)
[2016-07-14] MEDS: SODIUM CHLORIDE 0.9% 1,000 ML IV SCH (06:37)
[2016-07-14] MEDS: CALCIUM CARB-VIT D 500MG-200UN 1 EACH TAB PO SCH (09:09)
[2016-07-14] MEDS: CHOLECALCIFEROL 1,000 UNIT TAB PO SCH (09:09)
[2016-07-14] MEDS: POTASSIUM CHLORIDE ER 10 MEQ TAB.ER.PRT PO SCH (09:09)
[2016-07-14] MEDS: DILTIAZEM CD 120 MG CAP.ER.24H PO SCH (09:09)
[2016-07-14] MEDS: FAMOTIDINE 20 MG TAB PO SCH (09:09)
[2016-07-14 09:14] VITALS: BP 119/65; PULSE 105; TEMP 97
[2016-07-25 14:12] LABS: WBC,Urine <1 /hpf (0-5)
== END 2016-07-14 10:34 | disposition home health service (06) | DRG 690 ==
LOC: EC 19:29 → 6SEL 22:11
PROVIDERS: ADMIT Internal Medicine; ATTEND Internal Medicine
PROC: 0T9B70Z Drainage of Bladder with Drainage Device, Via Natural or Artificial Opening (ICD-10-PCS; principal; 2016-07-14)
DX: N30.01 Acute cystitis with hematuria (principal); E86.0 Dehydration; I48.2 Chronic atrial fibrillation; R55 Syncope and collapse; R32 Unspecified urinary incontinence; R33.9 Retention of urine, unspecified; M41.9 Scoliosis, unspecified; I10 Essential (primary) hypertension; D72.829 Elevated white blood cell count, unspecified; M06.9 Rheumatoid arthritis, unspecified; R53.1 Weakness; H91.90 Unspecified hearing loss, unspecified ear; Z86.73 Personal history of transient ischemic attack (TIA), and cerebral infarction without residual deficits; Z79.82 Long term (current) use of aspirin; Z79.899 Other long term (current) drug therapy; Z90.49 Acquired absence of other specified parts of digestive tract; Z80.8 Family history of malignant neoplasm of other organs or systems
CPT/HCPCS: 36415; 70450; 71020; 72170; 80053; 80162; 81001; 82550; 82553; 83735; 84100; 84439; 84443; 84481; 84484; 85025; 85610; 85730; 87086; 93005; 93306; 94760; 95816; 96361; 96365; 99285

== ENCOUNTER 2016-09-06 18:57 | Emergency (ER) | payer MEDICARE ==
--- NOTE | 2016-09-06 19:36 | ED ---
Fall HPI - General Chief Complaint: Fall Stated Complaint: knee pain Time Seen by Provider: 09/06/16 18:58 Source: patient, EMS, RN notes reviewed Mode of arrival: EMS - History of Present Illness Initial Comments: 89-year-old female presents to the emergency department with a chief complaint of fall. Patient states she was reaching down to pick something up she could not get and she fell forward onto her knees. Patient states she now has bilateral knee pain. Patient states there is no lightheadedness or dizziness before the fall. Patient states that she did not hit her head. Patient states that she simply has pain. Patient states that she was unable to get up by herself. Patient states that she is not currently having any other symptom is at this time. Patient denies any recent fever, chills, shortness of breath, chest pain, back pain, abdominal pain, nausea vomiting, numbness or tingling, dysuria or hematuria, constipation or diarrhea, headaches or visual changes, or any other current symptoms. - Related Data Home Medications Medication Instructions Recorded Confirmed Cholecalciferol [Vitamin D3] 2,000 unit PO DAILY 03/23/15 09/06/16 Simvastatin 20 mg PO HS 03/23/15 09/06/16 Ubidecarenone [Co Q-10] 100 mg PO DAILY 03/23/15 09/06/16 Aspirin 81 mg PO DAILY 07/10/16 09/06/16 Latanoprost Ophth [Xalatan 0.005%] 1 drop BOTH EYES HS 07/10/16 09/06/16 Apixaban [Eliquis] 2.5 mg PO BID 09/06/16 09/06/16 Calcium Carbonate [Calcium] 1,200 mg PO DAILY 09/06/16 09/06/16 Digoxin [Digitek] 125 mcg PO DAILY 09/06/16 09/06/16 Diltiazem Cd [Cardizem Cd] 120 mg PO DAILY 09/06/16 09/06/16 Ensure 1 can PO TID-W/MEALS 09/06/16 09/06/16 Furosemide [Lasix] 10 mg PO DAILY 09/06/16 09/06/16 Allergies Allergy/AdvReac Type Severity Reaction Status Date / Time No Known Allergies Allergy Verified 09/06/16 19:38 Review of Systems ROS Statement: Those systems with pertinent positive or pertinent negative responses have been documented in the HPI. ROS Other: All systems not noted in ROS Statement are negative. Past Medical History Past Medical History: Atrial Fibrillation, CVA/TIA, Hearing Disorder / Deafness , Hypertension, Rheumatoid Arthritis (RA) Additional Past Medical History / Comment(s): Patient says she had a "questionable stroke" but was not "disabled by it." History of Any Multi-Drug Resistant Organisms: None Reported Past Surgical History: Adenoidectomy, Appendectomy, Cholecystectomy, Orthopedic Surgery, Tonsillectomy Past Anesthesia/Blood Transfusion Reactions: No Reported Reaction Past Psychological History: No Psychological Hx Reported Smoking Status: Never smoker Past Alcohol Use History: Occasional Additional Past Alcohol Use History / Comment(s): Says she occasionally has a glass of wine. Past Drug Use History: None Reported - Past Family History Sister(s) Additional Family Medical History / Comment(s): Brain tumor- in her 50's. General Exam - General Exam Comments Initial Comments: General: The patient is awake and alert, in no distress, and does not appear acutely ill. Neck: The neck is supple, there is no tenderness. Cardiovascular: There is a regular rate and rhythm. No murmur, rub or gallop is appreciated. Respiratory: Lungs are clear to auscultation, respirations are non-labored, breath sounds are equal. No wheezes, stridor, rales, or rhonchi. Musculoskeletal: Sensation intact with 2+ pulses of the bilateral lower extremities. Patient has full range of motion of bilateral hips knees and ankles. Patient does have some tenderness with patient of the patella of the right knee with some ecchymosis. No tenderness to palpation to the left knee. Neurological: CN II-XII intact, There are no obvious motor or sensory deficits. Coordination appears grossly intact. Speech is normal. Skin: Skin is warm and dry and no rashes or lesions are noted. Psychiatric: Normal mood and affect. Limitations: physical limitation Course Vital Signs 09/06/16 18:59 Temperature 98 F Pulse Rate 93 Respiratory 20 Rate Blood Pressure 118/67 O2 Sat by Pulse 95 Oximetry Medical Decision Making - Medical Decision Making 89-year-old male presents emergency Department chief complaint of bilateral knee pain after a fall. This time patient's x-rays reviewed that shows no acute fracture. This time we discussed icing the area. We discussed Tylenol for pain control. Discussed return parameters and follow-up. Patient stated that she understood all her questions have been answered. She will be discharged home. - Radiology Data Radiology results: report reviewed, image reviewed Disposition Clinical Impression: Fall, Contusion of knee, left, Contusion of knee, right Disposition: HOME SELF-CARE Condition: Stable Instructions: Contusion in Adults (ED) Additional Instructions: Please use medication as discussed. Please follow up with family doctor if symptoms have not improved over the next two days. Please return to the emergency room if your symptoms increase or worsen or for any other concerns. Referrals: Seth Gallo MD [Primary Care Provider] - 1-2 days Time of Disposition: 19:48
--- NOTE | 2016-09-06 19:45 | XR ---
EXAMINATION TYPE: XR knee 4V bilateral DATE OF EXAM: 09/06/2016 7:39 PM CLINICAL HISTORY: pain TECHNIQUE: Three views of the right knee are obtained. COMPARISON: None. FINDINGS: There is no acute fracture/dislocation. The tri-compartment joint spaces appear within no rmal limits. The overlying soft tissue appears unremarkable. IMPRESSION: There is no acute fracture or dislocation.ICD 10 NO FRACTURE, INITIAL EVALUATION EXAMINATION TYPE: XR knee 4V bilateral DATE OF EXAM: 09/06/2016 7:39 PM CLINICAL HISTORY: pain TECHNIQUE: Three views of the left knee are obtained. COMPARISON: None. FINDINGS: There is no acute fracture/dislocation. The tri-compartment joint spaces appear within no rmal limits. The overlying soft tissue appears unremarkable. IMPRESSION: There is no acute fracture or dislocation ICD 10 NO FRACTURE, INITIAL EVALUATION
[2016-09-06 20:04] VITALS: BP 128/71; PULSE 88; RESP 18; TEMP 97.6
== END 2016-09-06 20:03 | disposition home or self-care (01) ==
LOC: EC 18:57
DX: S80.02XA Contusion of left knee, initial encounter (principal); S80.01XA Contusion of right knee, initial encounter; W19.XXXA Unspecified fall, initial encounter; I48.91 Unspecified atrial fibrillation; I10 Essential (primary) hypertension; M06.9 Rheumatoid arthritis, unspecified; H91.90 Unspecified hearing loss, unspecified ear; Z86.73 Personal history of transient ischemic attack (TIA), and cerebral infarction without residual deficits; Z79.82 Long term (current) use of aspirin; Z79.01 Long term (current) use of anticoagulants; Z79.899 Other long term (current) drug therapy
CPT/HCPCS: 99284

== ENCOUNTER → 2016-11-29 | Outpatient (CLI) | payer MEDICARE ==
--- NOTE | 2016-11-30 16:58 | BD ---
EXAMINATION TYPE: MG DEXA axial skeleton. DATE OF EXAM: 11/29/2016 4:18 PM COMPARISON: NONE CLINICAL HISTORY: 89-year-old female age related osteoporosis Height: 5' Weight: 100 FRAX RISK QUESTIONS: Alcohol (3 or more units per day): no Family History (Parent hip fracture): no Glucocorticoids (More than 3mos): no (Ex: prednisone, prednisolone, methylprednisolone, dexamethasone, and hydrocortisone). History of Fracture in Adulthood: no Secondary Osteoporosis: 1. Type 1 Diabetes: no 2. Hyperthyroidism: no 3. Menopause before 45: yes 4. Malnutrition: no 5. Chronic liver disease: no Rheumatoid Arthritis: no Current Tobacco Use: no RISK FACTORS HISTORY OF: Active: Diet low in dairy products/other sources of calcium: Postmenopausal woman: How long: Lost more than 2 inches in height since high school: Frequent falls: Poor Health: MEDICATIONS: Additional Medications: blood pressure , cholesterol, heart meds Additional History: EXAM MEASUREMENTS: Bone mineral densitometry was performed using the [employer] System. Bone mineral density as measured about the Lumbar spine is: ----- L1-L4(G/cm2): 0.904 T Score Values are as follows: ----- L2: -3.6 ----- L3: -2.0 ----- L4: -0.5 ----- L1-L4: -2.3 Bone mineral density about the R hip (g/cm2): 0.710 Bone mineral density about the L hip (g/cm2): 0.636 T Score values are as follows: -----R Neck: -2.4 -----L Neck: -2.9 -----R Total: -2.4 -----L Total: -2.5 IMPRESSION: Osteoporosis as indicated by T score values in the lumbar spine and left hip. There is increased fracture risk and therapy is usually indicated based on age. Re-Screen 1-2 years. NOTE: T-SCORE=SD OF THE YOUNG ADULT MEAN.
== END | disposition home or self-care (01) ==
LOC: RADBDWWP 15:47
PROVIDERS: ATTEND Internal Medicine Rheumatology
DX: M81.0 Age-related osteoporosis without current pathological fracture (principal)
CPT/HCPCS: 77080

== ENCOUNTER → 2016-12-04 | Outpatient (CLI) | payer MEDICARE ==
[2016-12-04 10:45] LABS: ALT 27 U/L (9-52); AST 23 U/L (14-36); Alkaline Phosphatase 88 U/L (38-126); Anion Gap 8 mmol/L; Blood Urea Nitrogen 19 mg/dL (7-17); Calcium 8.9 mg/dL (8.4-10.2); Carbon Dioxide 29 mmol/L (22-30); Chloride 100 mmol/L (98-107); Cholesterol 194 mg/dL (<200); Glucose 106 mg/dL (74-99); HDL Cholesterol 82 mg/dL (40-60); Non-African American GFR(MDRD) >60 (>60 ml/min/1.73 sqM); Potassium 4.5 mmol/L (3.5-5.1); Sodium 137 mmol/L (137-145); Total Bilirubin 1.2 mg/dL (0.2-1.3); Total Protein 6.9 g/dL (6.3-8.2); Triglycerides 56 mg/dL (<150)
[2016-12-04 11:16] LABS: Hemoglobin A1C 5.9 % (4.2-6.1)
== END ==
LOC: LABWHC1 09:45
PROVIDERS: ATTEND Family Medicine
DX: E78.00 Pure hypercholesterolemia, unspecified (principal); R73.01 Impaired fasting glucose; M81.0 Age-related osteoporosis without current pathological fracture
CPT/HCPCS: 36415; 80053; 80061; 82306; 83036

== ENCOUNTER 2017-05-18 08:38 | Inpatient (IN) | payer MEDICARE ==
[2017-05-18 08:50] VITALS: RESP 18
--- NOTE | 2017-05-18 08:53 | ED ---
General Adult HPI - General Chief complaint: Fall Stated complaint: Fall Time Seen by Provider: 05/18/17 08:44 Source: EMS, RN notes reviewed Mode of arrival: EMS Limitations: no limitations - History of Present Illness Initial comments: Patient 89-year-old female who presents emergency room today by EMS, with chief complaint of fall that occurred last night. Patient does admit that she was getting out of bed try to make sure that her walker was walking when her feet slipped and she fell down. She states she could not get herself up. Patient states that she does live in an assisted living was hitting the bottom for some to come over and he showed up until this morning. Patient denies any injury or complaints. She states she feels well at this time. Patient denies any recent fever, chills, shortness of breath, chest pain, back pain, abdominal pain, nausea or vomiting, numbness or tingling, dysuria or hematuria, constipation or diarrhea, headaches or visual changes, or any other complaints. - Related Data Home Medications Medication Instructions Recorded Confirmed Cholecalciferol [Vitamin D3] 2,000 unit PO DAILY 03/23/15 09/06/16 Simvastatin 20 mg PO HS 03/23/15 09/06/16 Ubidecarenone [Co Q-10] 100 mg PO DAILY 03/23/15 09/06/16 Aspirin 81 mg PO DAILY 07/10/16 09/06/16 Latanoprost Ophth [Xalatan 0.005%] 1 drop BOTH EYES HS 07/10/16 09/06/16 Apixaban [Eliquis] 2.5 mg PO BID 09/06/16 09/06/16 Calcium Carbonate [Calcium] 1,200 mg PO DAILY 09/06/16 09/06/16 Digoxin [Digitek] 125 mcg PO DAILY 09/06/16 09/06/16 Diltiazem Cd [Cardizem Cd] 120 mg PO DAILY 09/06/16 09/06/16 Ensure 1 can PO TID-W/MEALS 09/06/16 09/06/16 Furosemide [Lasix] 10 mg PO DAILY 09/06/16 09/06/16 Allergies Allergy/AdvReac Type Severity Reaction Status Date / Time chocolate flavor Allergy Unknown Verified 05/18/17 08:46 Review of Systems ROS Statement: Those systems with pertinent positive or pertinent negative responses have been documented in the HPI. ROS Other: All systems not noted in ROS Statement are negative. Past Medical History Past Medical History: Atrial Fibrillation, CVA/TIA, Hearing Disorder / Deafness , Hypertension, Rheumatoid Arthritis (RA) Additional Past Medical History / Comment(s): Patient says she had a "questionable stroke" but was not "disabled by it." History of Any Multi-Drug Resistant Organisms: None Reported Past Surgical History: Adenoidectomy, Appendectomy, Cholecystectomy, Orthopedic Surgery, Tonsillectomy Past Anesthesia/Blood Transfusion Reactions: No Reported Reaction Past Psychological History: No Psychological Hx Reported Smoking Status: Never smoker Past Alcohol Use History: Occasional Past Drug Use History: None Reported - Past Family History Sister(s) Additional Family Medical History / Comment(s): Brain tumor- in her 50's. General Exam - General Exam Comments Initial Comments: General: The patient is awake and alert, in no distress, and does not appear acutely ill. Eye: Pupils are equal, round and reactive to light, extra-ocular movements are intact. No nystagmus. There is normal conjunctiva bilaterally. No signs of icterus. Ears, nose, mouth and throat: There are moist mucous membranes and no oral lesions. Neck: The neck is supple, there is no tenderness or JVD. Cardiovascular: There is a regular rate and rhythm. No murmur, rub or gallop is appreciated. Respiratory: Lungs are clear to auscultation, respirations are non-labored, breath sounds are equal. No wheezes, stridor, rales, or rhonchi. Gastrointestinal: Soft, non-distended, non-tender abdomen without masses or organomegaly noted. There is no rebound or guarding present. No CVA tenderness. Bowel sounds are unremarkable. Musculoskeletal: Normal ROM, no tenderness. Strength 5/5. Sensation intact. Pulses equal bilaterally 2+. Neurological: A&O x 3. CN II-XII intact, There are no obvious motor or sensory deficits. Coordination appears grossly intact. Speech is normal. Skin: Skin is warm and dry and no rashes or lesions are noted. Psychiatric: Cooperative, appropriate mood & affect, normal judgment. Limitations: no limitations Course Vital Signs 05/18/17 05/18/17 08:46 09:58 Temperature 97.1 F L Pulse Rate 105 H 94 Respiratory 18 18 Rate Blood Pressure 124/80 114/62 O2 Sat by Pulse 96 96 Oximetry Medical Decision Making - Medical Decision Making Patient reexamined at this time shows no signs of distress is resting comfortably. Has no complex emergency room with chest x-ray does reveal a right -sided pneumonia. Urinalysis shows urinary tract infection. Patient also has an elevated troponin. Patient's EKG shows no acute changes. Patient will be admitted her on antibiotics here in the emergency room. Patient given a bolus. Patient does meet criteria for sepsis no evidence for septic shock his blood pressure stable in emergency room. Case discussed with attending Dr ha who discussed case with admitting Dr Magallanes. Patient family wear the plan states understanding and are in agreement. - Lab Data Result diagrams: 05/18/17 09:03 05/18/17 09:05 Lab Results 05/18/17 05/18/17 05/18/17 Range/Units 09:03 09:05 09:05 WBC 21.4 H (3.8-10.6) k/uL RBC 4.55 (3.80-5.40) m/uL Hgb 12.9 (11.4-16.0) gm/dL Hct 42.2 (34.0-46.0) % MCV 92.7 (80.0-100.0) fL MCH 28.4 (25.0-35.0) pg MCHC 30.6 L (31.0-37.0) g/dL RDW 15.5 (11.5-15.5) % Plt Count 174 (150-450) k/uL Neutrophils % 90 % Lymphocytes % 5 % Monocytes % 4 % Eosinophils % 0 % Basophils % 0 % Neutrophils # 19.1 H (1.3-7.7) k/uL Lymphocytes # 1.1 (1.0-4.8) k/uL Monocytes # 0.9 (0-1.0) k/uL Eosinophils # 0.0 (0-0.7) k/uL Basophils # 0.1 (0-0.2) k/uL PT (9.0-12.0) sec INR (<1.2) APTT (22.0-30.0) sec Sodium 137 (137-145) mmol/L Potassium 3.7 (3.5-5.1) mmol/L Chloride 97 L (98-107) mmol/L Carbon Dioxide 30 (22-30) mmol/L Anion Gap 10 mmol/L BUN 28 H (7-17) mg/dL Creatinine 0.44 L (0.52-1.04) mg/dL Est GFR (MDRD) Af Amer >60 (>60 ml/min/1.73 sqM) Est GFR (MDRD) Non-Af >60 (>60 ml/min/1.73 sqM) Glucose 148 H (74-99) mg/dL Calcium 9.2 (8.4-10.2) mg/dL Total Bilirubin 0.8 (0.2-1.3) mg/dL AST 30 (14-36) U/L ALT 31 (9-52) U/L Alkaline Phosphatase 62 (38-126) U/L Total Creatine Kinase 255 H (30-135) U/L CK-MB (CK-2) 3.0 H* (0.0-2.4) ng/mL CK-MB (CK-2) Rel Index 1.2 Troponin I 0.067 H* (0.000-0.034) ng/mL Total Protein 6.8 (6.3-8.2) g/dL Albumin 3.8 (3.5-5.0) g/dL Urine Color Urine Appearance (Clear) Urine pH (5.0-8.0) Ur Specific Endeavor (1.001-1.035) Urine Protein (Negative) Urine Glucose (UA) (Negative) Urine Ketones (Negative) Urine Blood (Negative) Urine Nitrite (Negative) Urine Bilirubin (Negative) Urine Urobilinogen (<2.0) mg/dL Ur Leukocyte Esterase (Negative) Urine RBC (0-5) /hpf Urine WBC (0-5) /hpf Urine WBC Clumps (None) /hpf Ur Squamous Epith Cells (0-4) /hpf Amorphous Sediment (None) /hpf Urine Bacteria (None) /hpf Urine Mucus (None) /hpf 05/18/17 05/18/17 Range/Units 09:15 09:45 WBC (3.8-10.6) k/uL RBC (3.80-5.40) m/uL Hgb (11.4-16.0) gm/dL Hct (34.0-46.0) % MCV (80.0-100.0) fL MCH (25.0-35.0) pg MCHC (31.0-37.0) g/dL RDW (11.5-15.5) % Plt Count (150-450) k/uL Neutrophils % % Lymphocytes % % Monocytes % % Eosinophils % % Basophils % % Neutrophils # (1.3-7.7) k/uL Lymphocytes # (1.0-4.8) k/uL Monocytes # (0-1.0) k/uL Eosinophils # (0-0.7) k/uL Basophils # (0-0.2) k/uL PT 11.0 (9.0-12.0) sec INR 1.1 (<1.2) APTT 26.8 (22.0-30.0) sec Sodium (137-145) mmol/L Potassium (3.5-5.1) mmol/L Chloride (98-107) mmol/L Carbon Dioxide (22-30) mmol/L Anion Gap mmol/L BUN (7-17) mg/dL Creatinine (0.52-1.04) mg/dL Est GFR (MDRD) Af Amer (>60 ml/min/1.73 sqM) Est GFR (MDRD) Non-Af (>60 ml/min/1.73 sqM) Glucose (74-99) mg/dL Calcium (8.4-10.2) mg/dL Total Bilirubin (0.2-1.3) mg/dL AST (14-36) U/L ALT (9-52) U/L Alkaline Phosphatase (38-126) U/L Total Creatine Kinase (30-135) U/L CK-MB (CK-2) (0.0-2.4) ng/mL CK-MB (CK-2) Rel Index Troponin I (0.000-0.034) ng/mL Total Protein (6.3-8.2) g/dL Albumin (3.5-5.0) g/dL Urine Color Yellow Urine Appearance Cloudy H (Clear) Urine pH 7.0 (5.0-8.0) Ur Specific Endeavor 1.014 (1.001-1.035) Urine Protein 1+ H (Negative) Urine Glucose (UA) Negative (Negative) Urine Ketones 1+ H (Negative) Urine Blood Moderate H (Negative) Urine Nitrite Negative (Negative) Urine Bilirubin Negative (Negative) Urine Urobilinogen <2.0 (<2.0) mg/dL Ur Leukocyte Esterase Large H (Negative) Urine RBC 25 H (0-5) /hpf Urine WBC 107 H (0-5) /hpf Urine WBC Clumps Occasional H (None) /hpf Ur Squamous Epith Cells 12 H (0-4) /hpf Amorphous Sediment Rare H (None) /hpf Urine Bacteria Rare H (None) /hpf Urine Mucus Rare H (None) /hpf Disposition Clinical Impression: Fall, Sepsis, Community acquired pneumonia, UTI (urinary tract infection) Disposition: ADMITTED IP TO THIS HOSP Condition: Stable Referrals: None,Stated [REFERRING] - 1-2 days Time of Disposition: 11:03
[2017-05-18 09:36] LABS: Basophils # (A) 0.1 k/uL (0-0.2); Basophils % (A) 0 %; CH 29.2; CHCM 31.6; Eosinophils % (A) 0 %; HCT 42.2 % (34.0-46.0); HDW 2.15; HGB 12.9 gm/dL (11.4-16.0); Luc # (Auto) 0.14; Luc % (Auto) 1; Lymphocytes # (A) 1.1 k/uL (1.0-4.8); Lymphocytes % (A) 5 %; MCH 28.4 pg (25.0-35.0); MCHC 30.6 g/dL (31.0-37.0); MCV 92.7 fL (80.0-100.0); Mean Platelet Volume 8.4; Monocytes # (A) 0.9 k/uL (0-1.0); Monocytes % (A) 4 %; Neutrophils # (A) 19.1 k/uL (1.3-7.7); Neutrophils % (A) 90 %; RBC 4.55 m/uL (3.80-5.40); RDW 15.5 % (11.5-15.5); WBC 21.4 k/uL (3.8-10.6); WBC (Perox) 22.39
--- NOTE | 2017-05-18 09:44 | XR ---
EXAMINATION TYPE: XR chest 2V DATE OF EXAM: 05/18/2017 HISTORY: fall. REFERENCE: Previous study dated 07/10/2016. FINDINGS: The heart is enlarged. There is stable pericardial calcification. There has developed a rig ht lower lobe infiltrate. Both CP angles are blunted. The difficult to exclude small effusions. Note is made of multiple healed left-sided rib fractures. IMPRESSION: 1. CARDIOMEGALY. 2. STABLE PERICARDIAL CALCIFICATION 3. I COULD NOT EXCLUDE SMALL EFFUSIONS. 4. RIGHT LOWER LOBE INFILTRATE.
[2017-05-18 09:46] LABS: ALT 31 U/L (9-52); AST 30 U/L (14-36); Alkaline Phosphatase 62 U/L (38-126); Anion Gap 10 mmol/L; Blood Urea Nitrogen 28 mg/dL (7-17); Calcium 9.2 mg/dL (8.4-10.2); Carbon Dioxide 30 mmol/L (22-30); Chloride 97 mmol/L (98-107); Glucose 148 mg/dL (74-99); Non-African American GFR(MDRD) >60 (>60 ml/min/1.73 sqM); Potassium 3.7 mmol/L (3.5-5.1); Sodium 137 mmol/L (137-145); Total Bilirubin 0.8 mg/dL (0.2-1.3); Total Protein 6.8 g/dL (6.3-8.2)
[2017-05-18 09:47] LABS: INR 1.1 (<1.2); Partial Thromboplastin Time 26.8 sec (22.0-30.0)
--- NOTE | 2017-05-18 09:52 | CT ---
EXAMINATION TYPE: CT brain nafisa kellogg DATE OF EXAM: 05/18/2017 COMPARISON: Previous CT scan of the brain dated 07/10/2016 HISTORY: Fall CT DLP: Brain 999.8, Cervical 272.9 mGycm Automated exposure control for dose reduction was used. TECHNIQUE: CT scan of the head and cervical spine are performed without contrast. FINDINGS: BRAIN: There are generalized changes of sulcal prominence and ventriculomegaly, compatible with atrop hic change. There is diffuse periventricular white matter lucency, compatible with chronic white estefany er ischemic change. There is no acute focal lesion, mass effect or midline shift identified. I do not see evidence of intracranial blood. Visualized portions of the paranasal sinuses and mastoids are clear. No depressed skull fracture is s een. IMPRESSION: 1. NO ACUTE INTRACRANIAL ABNORMALITY. 2. ATROPHIC CHANGE. 3. CHRONIC WHITE MATTER ISCHEMIC CHANGE. CERVICAL SPINE: There is apical scarring in both lungs with associated calcification. The thyroid gland is heterogenous. Prevertebral soft tissues are otherwise unremarkable. There is an increase lordosis of the cervical spine. Alignment is maintained. Atlantoaxial relationsh ips are normal. There is diffuse degenerative disc disease with relative sparing of C2-3. There is di ffuse uncovertebral joint disease and facet arthropathy particularly in the upper cervical facets. No definite discal protrusion is seen. No fracture is seen. IMPRESSION: 1. NO ACUTE OSSEOUS LESION. 2. DEGENERATIVE CHANGE.
[2017-05-18 10:07] LABS: Amorphous Sediment,Urine Rare /hpf; Appearance,Urine Cloudy (Clear); Bacteria,Urine Rare /hpf; Bilirubin,Urine Negative (Negative); Glucose,Urine (UA) Negative (Negative); Ketones,Urine 1+ (Negative); Leukocyte Esterase,Urine Large (Negative); Mucus,Urine Rare /hpf; Nitrite,Urine Negative (Negative); Particle Count 11673; Protein,Urine 1+ (Negative); RBC,Urine 25 /hpf (0-5); Specific Gravity,Urine 1.014 (1.001-1.035); Squamous Epithelial Cell,Urine 12 /hpf (0-4); UA Billing (MACRO vs. MICRO) MICRO; Urobilinogen,Urine <2.0 mg/dL (<2.0); WBC,Urine 107 /hpf (0-5)
[2017-05-18 10:18] LABS: Troponin I 0.067 ng/mL (0.000-0.034)
[2017-05-18] MEDS ORDERED: LEVOFLOXACIN 500MG-D5W PMX 500 MG in DEXTROSE/WATER 1 100ML.BAG IVPB STA (10:33)
[2017-05-18] MEDS ORDERED: SODIUM CHLORIDE 0.9% 1,000 ML IV STA (11:12)
[2017-05-18] MEDS ORDERED: ONDANSETRON 4 MG/2 ML VIAL IVP PRN (11:13)
[2017-05-18] MEDS ORDERED: ACETAMINOPHEN TAB 325 MG TAB PO PRN (11:13)
[2017-05-18] MEDS ORDERED: NALOXONE 0.4 MG/ML 1 ML VIAL IV PRN (11:13)
[2017-05-18] MEDS ORDERED: ASPIRIN 81 MG PO STA (11:16)
[2017-05-18 15:44] LABS: Creatine Kinase MB 2.8 ng/mL (0.0-2.4); Troponin I 0.042 ng/mL (0.000-0.034)
[2017-05-18] MEDS: SODIUM CHLORIDE 0.9% 1,000 ML IV SCH (16:00)
[2017-05-18] MEDS: DILTIAZEM ORAL 30 MG TAB PO SCH ×2 (16:16→21:36)
[2017-05-18] MEDS ORDERED: LATANOPROST 0.005% OPHTH DROPS 2.5 ML BTL BOTH EYES SCH (21:00)
[2017-05-18] MEDS ORDERED: ATORVASTATIN 10 MG TAB PO SCH (21:00)
[2017-05-18] MEDS ORDERED: ASPIRIN 81 MG PO SCH (21:00)
[2017-05-18] MEDS: APIXABAN 2.5 MG TABLET PO SCH (21:36)
[2017-05-18] MEDS: DORZOLAMIDE HCL 2% DROPS 10 ML BTL BOTH EYES SCH (21:36)
[2017-05-18 22:03] LABS: Creatine Kinase MB 2.4 ng/mL (0.0-2.4); Troponin I 0.026 ng/mL (0.000-0.034)
[2017-05-19 06:16] LABS: Basophils % (A) 0 %; CH 28.4; CHCM 31.1; Eosinophils % (A) 0 %; HCT 34.8 % (34.0-46.0); HDW 2.11; HGB 10.8 gm/dL (11.4-16.0); Luc # (Auto) 0.16; Luc % (Auto) 1; Lymphocytes # (A) 1.4 k/uL (1.0-4.8); Lymphocytes % (A) 12 %; MCH 28.4 pg (25.0-35.0); MCV 91.7 fL (80.0-100.0); Mean Platelet Volume 8.5; Monocytes # (A) 0.5 k/uL (0-1.0); Monocytes % (A) 4 %; Neutrophils # (A) 9.9 k/uL (1.3-7.7); Neutrophils % (A) 83 %; RDW 15.1 % (11.5-15.5); WBC (Perox) 12.67
[2017-05-19 06:28] LABS: ALT 48 U/L (9-52); AST 38 U/L (14-36); Alkaline Phosphatase 58 U/L (38-126); Anion Gap 6 mmol/L; Blood Urea Nitrogen 25 mg/dL (7-17); Calcium 8.5 mg/dL (8.4-10.2); Carbon Dioxide 25 mmol/L (22-30); Chloride 103 mmol/L (98-107); Glucose 118 mg/dL (74-99); Non-African American GFR(MDRD) >60 (>60 ml/min/1.73 sqM); Potassium 3.3 mmol/L (3.5-5.1); Sodium 134 mmol/L (137-145); Total Bilirubin 0.6 mg/dL (0.2-1.3); Total Protein 5.3 g/dL (6.3-8.2)
[2017-05-19] MEDS: SODIUM CHLORIDE 0.9% 1,000 ML IV SCH (06:30)
[2017-05-19 07:47] VITALS: BP 137/69; PULSE 100; TEMP 98
--- NOTE | 2017-05-19 08:22 | P.HPIM ---
History of Present Illness H&P Date: 05/18/17 Chief Complaint: fall 84-year-old lady with history of atrial fibrillation, kyphoscoliosis is admitted to the hospital after [facility]. Similar presentation in July when she had a fall from syncope. It appears patient is usually in good health until yesterday night when she had a fall. According to the patient and she slipped and fell and was not dizzy. On evaluation in the ED patient was found to have a urinary tract infection and pneumonia on her chest x-ray. She would be admitted for management of UTI and pneumonia. Patient is currently on room air resting well comfortably. Labs is consistent for lactic acidosis 2.3. Normal saline was started at 75 mL/h with levofloxacin 500 IV every 24 hours. Review of Systems Constitutional: Denies chills, Denies fever Eyes: denies blurred vision, denies pain Ears, nose, mouth and throat: Denies headache, Denies sore throat Cardiovascular: Denies chest pain, Denies shortness of breath Respiratory: Reports congestion, Reports cough, Denies dyspnea, Denies excessive sputum, Denies hemoptysis, Denies home oxygen, Denies wheezing Gastrointestinal: Denies abdominal pain, Denies bloating, Denies BRBPR, Denies change in bowel habits, Denies constipation, Denies early satiety, Denies hematemesis, Denies hematochezia Musculoskeletal: Reports frequent falls, Reports gait dysfunction, Denies leg numbness/tingling Neurological: Denies change in mentation, Denies change in smell/taste, Denies change in speech, Denies confusion, Denies gait dysfunction, Denies motor disturbance, Denies numbness, Denies seizures Past Medical History Past Medical History: Atrial Fibrillation, CVA/TIA, Hearing Disorder / Deafness , Hypertension, Pneumonia, Rheumatoid Arthritis (RA) Additional Past Medical History / Comment(s): Patient says she had a "questionable stroke" but was not "disabled by it." History of Any Multi-Drug Resistant Organisms: None Reported Past Surgical History: Adenoidectomy, Appendectomy, Cholecystectomy, Orthopedic Surgery, Tonsillectomy Past Anesthesia/Blood Transfusion Reactions: No Reported Reaction Past Psychological History: No Psychological Hx Reported Smoking Status: Never smoker Past Alcohol Use History: Occasional Additional Past Alcohol Use History / Comment(s): Says she occasionally has a glass of wine. Past Drug Use History: None Reported Additional History: Patient lives in a housing facility with staff coming 3 times a day to check on her. Patient walks with a walker and is functional. Patient is opposed to get physical therapy but patient declines to participate in physical therapy - Past Family History Sister(s) Additional Family Medical History / Comment(s): Brain tumor- in her 50's. Medications and Allergies Home Medications Medication Instructions Recorded Confirmed Type Cholecalciferol [Vitamin D3] 2,000 unit PO DAILY 03/23/15 05/18/17 History Ubidecarenone [Co Q-10] 100 mg PO DAILY@1200 03/23/15 05/18/17 History Aspirin 81 mg PO HS 07/10/16 05/18/17 History Latanoprost Ophth [Xalatan 0.005%] 1 drop BOTH EYES DAILY 07/10/16 05/18/17 History Apixaban [Eliquis] 2.5 mg PO BID 09/06/16 05/18/17 History Calcium Carbonate [Calcium] 1,200 mg PO DAILY@1200 09/06/16 05/18/17 History Digoxin [Digitek] 125 mcg PO DAILY@1200 09/06/16 05/18/17 History Diltiazem HCl 30 mg PO TID 05/18/17 05/18/17 History Dorzolamide HCl [Trusopt 2%] 1 drop BOTH EYES BID 05/18/17 05/18/17 History Simvastatin [Zocor] 10 mg PO HS 05/18/17 05/18/17 History Levofloxacin [Levaquin] 500 mg PO DAILY #4 tab 05/19/17 Rx Allergies Allergy/AdvReac Type Severity Reaction Status Date / Time chocolate flavor Allergy Unknown Verified 05/18/17 11:50 Physical Exam Vitals: Vital Signs Temp Pulse Pulse Resp BP BP Pulse Ox 05/18/17 15:50 96.9 F L 109 H 18 103/55 94 L 05/18/17 12:15 96.8 F L 102 H 18 114/66 96 05/18/17 11:31 97.4 F L 89 18 112/70 97 05/18/17 09:58 94 18 114/62 96 05/18/17 08:46 97.1 F L 105 H 18 124/80 96 Intake and Output 05/18/17 05/18/17 05/18/17 06:59 14:59 22:59 Output Total 0 Balance 0 Output: Urine 0 Other: # Voids 2 Weight 45.359 kg Patient Weight 05/19/17 06:59 Weight 45.359 kg - Constitutional General appearance: thin - EENT Eyes: EOMI, PERRLA ENT: hard of hearing Ears: bilateral: normal - Neck Neck: no lymphadenopathy, normal ROM, no rigidity - Respiratory Respiratory: left: rhonchi, bilateral: dullness - Cardiovascular Rhythm: irregularly irregular Heart sounds: normal: S1, S2 Abnormal Heart Sounds: systolic murmur, no diastolic murmur ankle Peripheral Edema: bilateral: 1+ (legs erythematous but appears to have chronic venous stasis bilaterally but no overlying warmth or tenderness to suggest cellulitis) - Gastrointestinal General gastrointestinal: normal bowel sounds, no organomegaly, soft - Integumentary bruise on her back from the fall Results CBC & Chem 7: 05/19/17 05:51 05/19/17 05:51 Labs: Abnormal Lab Results - Last 24 Hours (Table) 05/18/17 05/18/17 05/18/17 Range/Units 09:03 09:05 09:05 WBC 21.4 H (3.8-10.6) k/uL MCHC 30.6 L (31.0-37.0) g/dL Neutrophils # 19.1 H (1.3-7.7) k/uL Chloride 97 L (98-107) mmol/L BUN 28 H (7-17) mg/dL Creatinine 0.44 L (0.52-1.04) mg/dL Glucose 148 H (74-99) mg/dL Plasma Lactic Acid Eleuterio (0.7-2.0) mmol/L Total Creatine Kinase 255 H (30-135) U/L CK-MB (CK-2) 3.0 H* (0.0-2.4) ng/mL Troponin I 0.067 H* (0.000-0.034) ng/mL Urine Appearance (Clear) Urine Protein (Negative) Urine Ketones (Negative) Urine Blood (Negative) Ur Leukocyte Esterase (Negative) Urine RBC (0-5) /hpf Urine WBC (0-5) /hpf Urine WBC Clumps (None) /hpf Ur Squamous Epith Cells (0-4) /hpf Amorphous Sediment (None) /hpf Urine Bacteria (None) /hpf Urine Mucus (None) /hpf 05/18/17 05/18/17 05/18/17 Range/Units 09:05 09:45 14:38 WBC (3.8-10.6) k/uL MCHC (31.0-37.0) g/dL Neutrophils # (1.3-7.7) k/uL Chloride (98-107) mmol/L BUN (7-17) mg/dL Creatinine (0.52-1.04) mg/dL Glucose (74-99) mg/dL Plasma Lactic Acid Eleuterio 2.3 H* 2.3 H* (0.7-2.0) mmol/L Total Creatine Kinase (30-135) U/L CK-MB (CK-2) (0.0-2.4) ng/mL Troponin I (0.000-0.034) ng/mL Urine Appearance Cloudy H (Clear) Urine Protein 1+ H (Negative) Urine Ketones 1+ H (Negative) Urine Blood Moderate H (Negative) Ur Leukocyte Esterase Large H (Negative) Urine RBC 25 H (0-5) /hpf Urine WBC 107 H (0-5) /hpf Urine WBC Clumps Occasional H (None) /hpf Ur Squamous Epith Cells 12 H (0-4) /hpf Amorphous Sediment Rare H (None) /hpf Urine Bacteria Rare H (None) /hpf Urine Mucus Rare H (None) /hpf 05/18/17 Range/Units 14:38 WBC (3.8-10.6) k/uL MCHC (31.0-37.0) g/dL Neutrophils # (1.3-7.7) k/uL Chloride (98-107) mmol/L BUN (7-17) mg/dL Creatinine (0.52-1.04) mg/dL Glucose (74-99) mg/dL Plasma Lactic Acid Eleuterio (0.7-2.0) mmol/L Total Creatine Kinase 290 H (30-135) U/L CK-MB (CK-2) 2.8 H* (0.0-2.4) ng/mL Troponin I 0.042 H* (0.000-0.034) ng/mL Urine Appearance (Clear) Urine Protein (Negative) Urine Ketones (Negative) Urine Blood (Negative) Ur Leukocyte Esterase (Negative) Urine RBC (0-5) /hpf Urine WBC (0-5) /hpf Urine WBC Clumps (None) /hpf Ur Squamous Epith Cells (0-4) /hpf Amorphous Sediment (None) /hpf Urine Bacteria (None) /hpf Urine Mucus (None) /hpf Microbiology - Last 24 Hours (Table) 05/18/17 09:45 Urine Culture - Preliminary Urine,Voided Thrombosis Risk Factor Assmnt - DVT/VTE Prophylaxis DVT/VTE Prophylaxis: Mechanical Prophylaxis ordered - Choose All That Apply Any of the Below Risk Factors Present?: Yes Each Factor Represents 1 point: Sepsis (< 1month) Other Risk Factors: Yes Each Risk Factor Represents 3 Points: Age 75 years or older Thrombosis Risk Factor Assessment Total Risk Factor Score: 4 Thrombosis Risk Factor Assessment Level: Moderate Risk Assessment and Plan Plan: #1 fall appears secondary to dehydration. Continue fluids overnight. Repeat lactic acid q6 hr #2 Right lower lobe infilterate concerning for gram-positive pneumonia- Levofloxacin 500 mg IV daily #2 history of chronic atrial fibrillation continue digoxin and eliquis #3 kyphoscoliosis Tylenol for pain control #4 rheumatoid arthritis stable #5 history of hypertension, stable #6. DVT - SCD, on eliquis #7 Disposition - likley discharge tomorrow
[2017-05-19] MEDS: APIXABAN 2.5 MG TABLET PO SCH (08:35)
[2017-05-19] MEDS: DILTIAZEM ORAL 30 MG TAB PO SCH (08:35)
[2017-05-19] MEDS: DORZOLAMIDE HCL 2% DROPS 10 ML BTL BOTH EYES SCH (08:35)
[2017-05-19] MEDS ORDERED: POTASSIUM CHLORIDE ER 20 MEQ TAB.ER PO STA (08:55)
[2017-05-19] MEDS ORDERED: ASPIRIN 325 MG TAB PO SCH (09:00)
[2017-05-19] MEDS ORDERED: CHOLECALCIFEROL 1,000 UNIT TAB PO SCH (12:00)
[2017-05-19] MEDS ORDERED: LEVOFLOXACIN 500MG-D5W PMX 500 MG in DEXTROSE/WATER 1 100ML.BAG IVPB SCH (12:00)
[2017-05-19] MEDS ORDERED: CALCIUM CARBONATE 500 MG CHEWABLE PO SCH (12:00)
[2017-05-19] MEDS ORDERED: DIGOXIN 125 MCG TAB PO SCH (12:00)
--- NOTE | 2017-05-20 09:24 | P.DS ---
Providers Date of admission: 05/18/17 11:15 Expected date of discharge: 05/19/17 Attending physician: Norm Magallanes MD Primary care physician: [facility] Course: Patient 89-year-old female who presents emergency room today by EMS, with chief complaint of fall that occurred last night. Patient does admit that she was getting out of bed try to make sure that her walker was walking when her feet slipped and she fell down. She states she could not get herself up. Patient states that she does live in an assisted living was hitting the bottom for some to come over and he showed up until this morning. Patient denies any injury or complaints. She states she feels well at this time. Patient denies any recent fever, chills, shortness of breath, chest pain, back pain, abdominal pain, nausea or vomiting, numbness or tingling, dysuria or hematuria, constipation or diarrhea, headaches or visual changes, or any other complaints. 05/19: Patient was feeling much better in the morning. She was ambulating without difficulty. Repeat lactic acid was 2 Potassium of 3.3 will be replaced. WBC count is down to 12. Patient will be discharged home today in stable condition. Discharge diagnoses: #1 fall appears secondary to dehydration. #2 Right lower lobe infilterate concerning for gram-positive pneumonia #2 history of chronic atrial fibrillation #3 kyphoscoliosis #4 rheumatoid arthritis stable #5 history of hypertension, stable Disposition - home Impression and plan of care have been directed as dictated by the signing physician. Karyn Ramirez nurse practitioner acting as scribe for signing physician. Patient Condition at Discharge: Good Plan - Discharge Summary New Discharge Prescriptions: New Levofloxacin [Levaquin] 500 mg PO DAILY #4 tab Continue Cholecalciferol [Vitamin D3] 2,000 unit PO DAILY Ubidecarenone [Co Q-10] 100 mg PO DAILY@1200 Aspirin 81 mg PO HS Latanoprost Ophth [Xalatan 0.005%] 1 drop BOTH EYES DAILY Digoxin [Digitek] 125 mcg PO DAILY@1200 Calcium Carbonate [Calcium] 1,200 mg PO DAILY@1200 Apixaban [Eliquis] 2.5 mg PO BID Simvastatin [Zocor] 10 mg PO HS Diltiazem HCl 30 mg PO TID Dorzolamide HCl [Trusopt 2%] 1 drop BOTH EYES BID Discharge Medication List Cholecalciferol [Vitamin D3] 2,000 unit PO DAILY 03/23/15 [History] Ubidecarenone [Co Q-10] 100 mg PO DAILY@1200 03/23/15 [History] Aspirin 81 mg PO HS 07/10/16 [History] Latanoprost Ophth [Xalatan 0.005%] 1 drop BOTH EYES DAILY 07/10/16 [History] Apixaban [Eliquis] 2.5 mg PO BID 09/06/16 [History] Calcium Carbonate [Calcium] 1,200 mg PO DAILY@1200 09/06/16 [History] Digoxin [Digitek] 125 mcg PO DAILY@1200 09/06/16 [History] Diltiazem HCl 30 mg PO TID 05/18/17 [History] Dorzolamide HCl [Trusopt 2%] 1 drop BOTH EYES BID 05/18/17 [History] Simvastatin [Zocor] 10 mg PO HS 05/18/17 [History] Levofloxacin [Levaquin] 500 mg PO DAILY #4 tab 05/19/17 [Rx] Follow up Appointment(s)/Referral(s): None,Stated [REFERRING] - 1-2 days (Please call and make appointment Saturday with primary care provider.) Patient Instructions/Handouts: Urinary Tract Infection in Women (DC), Community Acquired Pneumonia (DC) Discharge Disposition: HOME SELF-CARE
== END 2017-05-19 10:47 | disposition home or self-care (01) | DRG 640 ==
LOC: EC 08:38 → 6SEL 11:15
PROVIDERS: ADMIT Internal Medicine; ATTEND Internal Medicine
DX: E86.0 Dehydration (principal); J18.9 Pneumonia, unspecified organism; E87.2 Acidosis; I48.2 Chronic atrial fibrillation; M06.9 Rheumatoid arthritis, unspecified; N39.0 Urinary tract infection, site not specified; H91.90 Unspecified hearing loss, unspecified ear; I10 Essential (primary) hypertension; M41.9 Scoliosis, unspecified; W01.0XXA Fall on same level from slipping, tripping and stumbling without subsequent striking against object, initial encounter; Z79.82 Long term (current) use of aspirin; Z79.01 Long term (current) use of anticoagulants; Z79.899 Other long term (current) drug therapy; Z86.73 Personal history of transient ischemic attack (TIA), and cerebral infarction without residual deficits
CPT/HCPCS: 36415; 70450; 71020; 72125; 80053; 81001; 82550; 82553; 83605; 84484; 85025; 85610; 85730; 86215; 87040; 87086; 87449; 93005; 96365; 99285

== ENCOUNTER 2017-10-08 08:09 | Inpatient (IN) | payer MEDICARE ==
--- NOTE | 2017-10-08 09:03 | ED ---
General Adult HPI - General Chief complaint: Fall Stated complaint: Fall-Hip Pain Time Seen by Provider: 10/08/17 08:31 Source: patient, RN notes reviewed Mode of arrival: EMS Limitations: no limitations - History of Present Illness Initial comments: Patient 89-year-old female presents to the emergency room today by EMS, the chief complaint of a fall that occurred sometime a minute. She states she was getting herself up to go to the commode next to her back. She states she slipped out of the bed falling down. Patient admits unable to get herself up and when they were delivering her meal this morning at 7 AM found her and were able to help her. She states she did not hit her head or lose consciousness. Patient denies any complaints currently. Patient denies any recent fever, chills , shortness of breath, chest pain, back pain, abdominal pain, nausea or vomiting , numbness or tingling, dysuria or hematuria, constipation or diarrhea, headaches or visual changes, or any other complaints. - Related Data Home Medications Medication Instructions Recorded Confirmed Cholecalciferol [Vitamin D3] 2,000 unit PO DAILY 03/23/15 05/18/17 Ubidecarenone [Co Q-10] 100 mg PO DAILY@1200 03/23/15 05/18/17 Aspirin 81 mg PO HS 07/10/16 05/18/17 Latanoprost Ophth [Xalatan 0.005%] 1 drop BOTH EYES DAILY 07/10/16 05/18/17 Apixaban [Eliquis] 2.5 mg PO BID 09/06/16 05/18/17 Calcium Carbonate [Calcium] 1,200 mg PO DAILY@1200 09/06/16 05/18/17 Digoxin [Digitek] 125 mcg PO DAILY@1200 09/06/16 05/18/17 Diltiazem HCl 30 mg PO TID 05/18/17 05/18/17 Dorzolamide HCl [Trusopt 2%] 1 drop BOTH EYES BID 05/18/17 05/18/17 Simvastatin [Zocor] 10 mg PO HS 05/18/17 05/18/17 Previous Rx's Medication Instructions Recorded Levofloxacin [Levaquin] 500 mg PO DAILY #4 tab 05/19/17 Allergies Allergy/AdvReac Type Severity Reaction Status Date / Time chocolate flavor Allergy Unknown Verified 05/18/17 11:50 Review of Systems ROS Statement: Those systems with pertinent positive or pertinent negative responses have been documented in the HPI. ROS Other: All systems not noted in ROS Statement are negative. Past Medical History Past Medical History: Atrial Fibrillation, CVA/TIA, Hearing Disorder / Deafness , Hypertension, Pneumonia, Rheumatoid Arthritis (RA) Additional Past Medical History / Comment(s): Patient says she had a "questionable stroke" but was not "disabled by it." History of Any Multi-Drug Resistant Organisms: None Reported Past Surgical History: Adenoidectomy, Appendectomy, Cholecystectomy, Orthopedic Surgery, Tonsillectomy Past Anesthesia/Blood Transfusion Reactions: No Reported Reaction Past Psychological History: No Psychological Hx Reported Smoking Status: Never smoker Past Alcohol Use History: Occasional Past Drug Use History: None Reported - Past Family History Sister(s) Additional Family Medical History / Comment(s): Brain tumor- in her 50's. General Exam - General Exam Comments Initial Comments: General: The patient is awake and alert, in no distress, and does not appear acutely ill. Eye: Pupils are equal, round and reactive to light, extra-ocular movements are intact. No nystagmus. There is normal conjunctiva bilaterally. No signs of icterus. Ears, nose, mouth and throat: There are moist mucous membranes and no oral lesions. Neck: The neck is supple, there is no tenderness or JVD. Cardiovascular: There is a regular rate and rhythm. No murmur, rub or gallop is appreciated. Respiratory: Lungs are clear to auscultation, respirations are non-labored, breath sounds are equal. No wheezes, stridor, rales, or rhonchi. Gastrointestinal: Soft, non-distended, non-tender abdomen without masses or organomegaly noted. There is no rebound or guarding present. No CVA tenderness. Musculoskeletal: No shortening or rotation of the lower extremities. Patient shows good range of motion of both upper and lower extremities. No step-offs deformities cervical, thoracic, lumbar spine. Strength 5/5. Sensation intact. Pulses equal bilaterally 2+. Neurological: A&O x 3. CN II-XII intact, There are no obvious motor or sensory deficits. Coordination appears grossly intact. Speech is normal. Skin: Skin is warm and dry and no rashes or lesions are noted. Psychiatric: Cooperative, appropriate mood & affect, normal judgment. Limitations: no limitations Course Vital Signs 10/08/17 08:16 Temperature 97.3 F L Pulse Rate 104 H Respiratory 18 Rate Blood Pressure 139/69 O2 Sat by Pulse 96 Oximetry Medical Decision Making - Medical Decision Making Patient's labs been reviewed does show 25,000 white count with shift of neutrophils. Urinalysis does show evidence for urinary tract infection. Patient asymptomatic. She does admit to some generalized weakness. Patient's vitals are stable no elevated temperature. Patient's EKG shows A. fib patient does have history. Patient currently on Eliqis. She states that she did have a slipped out of the bed last night. She states she did not hit her head. Did not lose consciousness. No headache. No contusion or hematoma. Patient started on antibiotics of Rocephin here in emergency room. Patient's CK greater than 500. Given IV fluids. Patient doing well at this time no complaints. Will be admitted continued on antibiotics. - Lab Data Result diagrams: 10/08/17 08:55 10/08/17 08:55 Lab Results 10/08/17 10/08/17 10/08/17 Range/Units 08:55 08:55 09:31 WBC 25.1 H* (3.8-10.6) k/uL RBC 4.59 (3.80-5.40) m/uL Hgb 13.1 (11.4-16.0) gm/dL Hct 39.5 (34.0-46.0) % MCV 86.1 (80.0-100.0) fL MCH 28.6 (25.0-35.0) pg MCHC 33.2 (31.0-37.0) g/dL RDW 13.6 (11.5-15.5) % Plt Count 185 (150-450) k/uL Neutrophils % (Manual) 89 % Band Neutrophils % 1 % Lymphocytes % (Manual) 6 % Monocytes % (Manual) 5 % Neutrophils # (Manual) 22.50 H (1.3-7.7) k/uL Lymphocytes # (Manual) 1.51 (1.0-4.8) k/uL Monocytes # (Manual) 1.26 H (0-1.0) k/uL Nucleated RBCs 0 (0-0) /100 WBC Manual Slide Review Performed RBC Morphology Normal Sodium 137 (137-145) mmol/L Potassium 3.8 (3.5-5.1) mmol/L Chloride 96 L (98-107) mmol/L Carbon Dioxide 30 (22-30) mmol/L Anion Gap 11 mmol/L BUN 31 H (7-17) mg/dL Creatinine 0.45 L (0.52-1.04) mg/dL Est GFR (CKD-EPI)AfAm >90 (>60 ml/min/1.73 sqM) Est GFR (CKD-EPI)NonAf 89 (>60 ml/min/1.73 sqM) Glucose 147 H (74-99) mg/dL Calcium 9.0 (8.4-10.2) mg/dL Total Bilirubin 0.8 (0.2-1.3) mg/dL AST 34 (14-36) U/L ALT 27 (9-52) U/L Alkaline Phosphatase 66 (38-126) U/L Creatine Kinase 536 H (30-135) U/L Total Protein 6.6 (6.3-8.2) g/dL Albumin 3.8 (3.5-5.0) g/dL Urine Color Yellow Urine Appearance Turbid H (Clear) Urine pH 6.5 (5.0-8.0) Ur Specific [place] 1.017 (1.001-1.035) Urine Protein 2+ H (Negative) Urine Glucose (UA) 1+ H (Negative) Urine Ketones 1+ H (Negative) Urine Blood Moderate H (Negative) Urine Nitrite Negative (Negative) Urine Bilirubin Negative (Negative) Urine Urobilinogen <2.0 (<2.0) mg/dL Ur Leukocyte Esterase Large H (Negative) Urine RBC 62 H (0-5) /hpf Urine WBC >182 H (0-5) /hpf Urine WBC Clumps Many H (None) /hpf Ur Squamous Epith Cells 62 H (0-4) /hpf Urine Bacteria Moderate H (None) /hpf Disposition Clinical Impression: Fall, UTI (urinary tract infection), Leukocytosis Disposition: ADMITTED IP TO THIS [facility] Referrals: Kyrie Hernandez MD [Primary Care Provider] - 1-2 days Time of Disposition: 10:11
[2017-10-08 09:10] LABS: HCT 39.5 % (34.0-46.0); HGB 13.1 gm/dL (11.4-16.0); MCH 28.6 pg (25.0-35.0); MCHC 33.2 g/dL (31.0-37.0); MCV 86.1 fL (80.0-100.0); Mean Platelet Volume 7.8; Platelet Count 185 k/uL (150-450); RBC 4.59 m/uL (3.80-5.40); RDW 13.6 % (11.5-15.5)
[2017-10-08 09:13] LABS: WBC 25.1 k/uL (3.8-10.6)
[2017-10-08 09:23] LABS: ALT 27 U/L (9-52); AST 34 U/L (14-36); Albumin 3.8 g/dL (3.5-5.0); Alkaline Phosphatase 66 U/L (38-126); Anion Gap 11 mmol/L; Blood Urea Nitrogen 31 mg/dL (7-17); Carbon Dioxide 30 mmol/L (22-30); Chloride 96 mmol/L (98-107); Creatine Kinase 536 U/L (30-135); Glucose 147 mg/dL (74-99); Potassium 3.8 mmol/L (3.5-5.1); Sodium 137 mmol/L (137-145); Total Bilirubin 0.8 mg/dL (0.2-1.3); Total Protein 6.6 g/dL (6.3-8.2)
[2017-10-08 09:24] LABS: Band Neutrophils % 1 %; Lymphocytes # (M) 1.51 k/uL (1.0-4.8); Monocytes # (M) 1.26 k/uL (0-1.0); Neutrophils % (M) 89 %; Nucleated Red Blood Cells 0 /100 WBC (0-0); Total Cells Counted 200
--- NOTE | 2017-10-08 09:41 | XR ---
EXAMINATION TYPE: XR chest 2V DATE OF EXAM: 10/08/2017 COMPARISON: 05/18/2017 HISTORY: Fall and chest pain TECHNIQUE: Frontal and lateral views of the chest are obtained. FINDINGS: Suboptimal patient positioning slightly limits evaluation. Mediastinum is shifted to the r ight secondary to patient rotation. Multiple old left-sided posterior rib fracture deformities are un changed from the prior. There is generalized osseous demineralization. There is no focal air space op acity, pleural effusion, or pneumothorax seen. The cardiac silhouette size is within normal limits. Moderate calcific atheromatous changes are seen of the descending thoracic aorta. Calcific pleural pl aquing is noted of the lung apices bilaterally. Pericardial calcification is again incidentally noted on the lateral image. Costophrenic angles are chronically blunted likely from hyperinflation and und erlying COPD. IMPRESSION: No acute cardiopulmonary process.
--- NOTE | 2017-10-08 09:46 | XR ---
EXAMINATION TYPE: XR pelvis AP view DATE OF EXAM: 10/08/2017 CLINICAL HISTORY: Fall and pelvic pain TECHNIQUE: A single AP view of the pelvis is obtained. COMPARISON: 07/10/2016 FINDINGS: There is generalized osseous demineralization. There is no acute fracture/dislocation evide nt in the pelvis. The hip and sacroiliac joints appear symmetric and unremarkable. The overlying so ft tissue appears unremarkable. Mild bilateral femoral acetabular arthropathy is noted. Again scolios is is seen with degenerative changes of the lumbosacral junction. IMPRESSION: There is no acute fracture or dislocation in the pelvis.
[2017-10-08 09:55] LABS: Appearance,Urine Turbid (Clear); Bacteria,Urine Moderate /hpf; Bilirubin,Urine Negative (Negative); Blood,Urine Moderate (Negative); Color,Urine Yellow; Glucose,Urine (UA) 1+ (Negative); Ketones,Urine 1+ (Negative); Leukocyte Esterase,Urine Large (Negative); Nitrite,Urine Negative (Negative); PH, Urine 6.5 (5.0-8.0); Protein,Urine 2+ (Negative); RBC,Urine 62 /hpf (0-5); Specific Gravity,Urine 1.017 (1.001-1.035); Squamous Epithelial Cell,Urine 62 /hpf (0-4); Urobilinogen,Urine <2.0 mg/dL (<2.0); WBC,Urine >182 /hpf (0-5)
[2017-10-08] MEDS ORDERED: cefTRIAXone IN SWFI 1,000 MG/10 ML SYRINGE IVP STA (10:07)
[2017-10-08] MEDS ORDERED: NALOXONE 0.4 MG/ML 1 ML VIAL IV PRN (10:36)
[2017-10-08] MEDS ORDERED: ONDANSETRON 4 MG/2 ML VIAL IVP PRN (10:36)
[2017-10-08] MEDS ORDERED: SODIUM CHLORIDE 0.9% 1,000 ML IV ONE (10:36)
[2017-10-08] MEDS ORDERED: LORazepam 0.5 MG TAB PO PRN (10:36)
[2017-10-08] MEDS ORDERED: ACETAMINOPHEN TAB 325 MG TAB PO PRN (10:36)
[2017-10-08] MEDS ORDERED: ASPIRIN 81 MG PO STA (10:43)
[2017-10-08] MEDS ORDERED: NITROGLYCERIN SL TABS 0.4 MG TAB SUBLINGUAL PRN (10:43)
--- NOTE | 2017-10-08 14:51 | P.CRDCN ---
History of Present Illness Consult date: 10/08/17 Requesting physician: Leticia Clifford Reason for Consult (text): Abnormal troponin Chief complaint: Fall History of present illness: This is a pleasant 89-year-old female with known history of chronic persistent atrial fibrillation, kyphoscoliosis, prior TIA, hypertension, hyperlipidemia rheumatoid arthritis, who was brought to the hospital after experiencing a fall. According to the patient, she was attempting to get out of bed to go to the commode when she slipped down and fell onto the floor. She denies passing out, denies any dizziness or lightheadedness. She denies having any chest discomfort, no shortness of breath. EKG performed on arrival here shows atrial fibrillation with a moderately rapid ventricular response. Chest x -ray did not reveal any acute cardiopulmonary process. Blood pressure 127/70 with a heart rate in the 70s, 95% on room air. White blood cell count 25.1, hemoglobin 13.1, platelet count 185. Sodium 137, potassium 3.8, BUN 31, creatinine 0.45. Troponin 0.103. Cardiology consultation was requested because of abnormal troponin. Past Medical History Past Medical History: Atrial Fibrillation, CVA/TIA, Eye Disorder, Hearing Disorder / Deafness, Hyperlipidemia, Hypertension, Pneumonia Additional Past Medical History / Comment(s): Patient says she had a "questionable stroke"-no deficits, [place] bilaterally, bilateral eyes glaucoma, kyphoscoliosis. History of Any Multi-Drug Resistant Organisms: None Reported Past Surgical History: Adenoidectomy, Appendectomy, Cholecystectomy, Orthopedic Surgery, Tonsillectomy Additional Past Surgical History / Comment(s): colonoscopy Past Anesthesia/Blood Transfusion Reactions: No Reported Reaction Smoking Status: Never smoker - Past Family History Sister(s) Additional Family Medical History / Comment(s): Brain tumor- in her 50's. Mother Family Medical History: No Reported History Additional Family Medical History / Comment(s): Mother was healthy and lived to be 86yrs old. Father Family Medical History: CVA/TIA Additional Family Medical History / Comment(s): Father from a CVA at the age of 70yrs. Medications and Allergies Home Medications Medication Instructions Recorded Confirmed Type Cholecalciferol [Vitamin D3] 2,000 unit PO DAILY 03/23/15 10/08/17 History Ubidecarenone [Co Q-10] 100 mg PO DAILY 03/23/15 10/08/17 History Aspirin 81 mg PO HS 07/10/16 10/08/17 History Latanoprost Ophth [Xalatan 0.005%] 1 drop BOTH EYES HS 07/10/16 10/08/17 History Apixaban [Eliquis] 2.5 mg PO BID 09/06/16 10/08/17 History Calcium Carbonate [Calcium] 1,200 mg PO DAILY 09/06/16 10/08/17 History Digoxin [Digitek] 125 mcg PO DAILY 09/06/16 10/08/17 History Diltiazem HCl 30 mg PO TID 05/18/17 10/08/17 History Dorzolamide HCl [Trusopt 2%] 1 drop BOTH EYES BID 05/18/17 10/08/17 History Simvastatin [Zocor] 10 mg PO HS 05/18/17 10/08/17 History Allergies Allergy/AdvReac Type Severity Reaction Status Date / Time chocolate flavor Allergy Unknown Verified 10/08/17 10:25 Physical Exam Vitals: Vital Signs Temp Pulse Pulse Resp BP BP Pulse Ox 10/08/17 12:52 97.2 F L 78 14 127/71 95 10/08/17 11:23 98.3 F 76 18 101/56 96 10/08/17 08:16 97.3 F L 104 H 18 139/69 96 Intake and Output 10/07/17 10/08/17 10/08/17 22:59 06:59 14:59 Intake Total 120 Balance 120 Intake: Oral 120 Other: Weight 45.359 kg PHYSICAL EXAMINATION: HEENT: Head is atraumatic, normocephalic. Pupils equal, round. Neck is supple. There is no elevated jugular venous pressure. HEART EXAMINATION: Heart S1 and S2 irregularly irregular a systolic murmur is heard. CHEST EXAMINATION: Lungs are clear to auscultation and precussion. No chest wall tenderness is noted on palpation or with deep breathing. ABDOMEN: Soft, nontender. Bowel sounds are heard. No organomegaly noted. EXTREMITIES: 1+ peripheral pulses with trace evidence of peripheral edema and evidence of bilateral venous stasis . NEUROLOGIC patient is awake, alert and oriented -3. . Results 10/08/17 08:55 10/08/17 08:55 Cardiac Enzymes 10/08/17 10/08/17 Range/Units 08:55 08:55 AST 34 (14-36) U/L Troponin I 0.103 H* (0.000-0.034) ng/mL CBC 10/08/17 Range/Units 08:55 WBC 25.1 H* (3.8-10.6) k/uL RBC 4.59 (3.80-5.40) m/uL Hgb 13.1 (11.4-16.0) gm/dL Hct 39.5 (34.0-46.0) % Plt Count 185 (150-450) k/uL Comprehensive Metabolic Panel 10/08/17 Range/Units 08:55 Sodium 137 (137-145) mmol/L Potassium 3.8 (3.5-5.1) mmol/L Chloride 96 L (98-107) mmol/L Carbon Dioxide 30 (22-30) mmol/L BUN 31 H (7-17) mg/dL Creatinine 0.45 L (0.52-1.04) mg/dL Glucose 147 H (74-99) mg/dL Calcium 9.0 (8.4-10.2) mg/dL AST 34 (14-36) U/L ALT 27 (9-52) U/L Alkaline Phosphatase 66 (38-126) U/L Total Protein 6.6 (6.3-8.2) g/dL Albumin 3.8 (3.5-5.0) g/dL Current Medications Generic Name Dose Route Start Last Admin Trade Name Freq PRN Reason Stop Dose Admin Acetaminophen 650 mg 10/08/17 10:36 Tylenol Tab PO Q6HR PRN Mild Pain or Fever > 100.5 Apixaban 2.5 mg 10/08/17 13:15 Eliquis PO BID [facility] Aspirin 81 mg 10/08/17 21:00 Aspirin PO HS [facility] Atorvastatin Calcium 10 mg 10/08/17 21:00 Lipitor PO HS JAVIER Calcium Carbonate/Glycine 1,000 mg 10/09/17 12:00 Tums PO 1200 [facility] Ceftriaxone Sodium 1,000 mg 10/09/17 09:00 Rocephin IVP Q24HR [facility] Cholecalciferol 2,000 unit 10/09/17 12:00 Vitamin D3 PO 1200 [facility] Digoxin 125 mcg 10/08/17 13:15 Lanoxin PO DAILY [facility] Diltiazem HCl 30 mg 10/08/17 16:00 Cardizem Oral PO TID JAVIER Dorzolamide HCl 1 drops 10/08/17 21:00 Trusopt BOTH EYES BID [facility] Sodium Chloride 1,000 mls @ 75 mls/hr 10/08/17 10:36 10/08/17 11:25 Saline 0.9% IV 10/08/17 23:55 75 mls/hr .[id number] ONE Administration Latanoprost 1 drops 10/08/17 21:00 Xalatan 0.005% BOTH EYES HS [facility] Lorazepam 0.5 mg 10/08/17 10:36 Ativan PO Q6HR PRN Anxiety Naloxone HCl 0.2 mg 10/08/17 10:36 Narcan IV Q2M PRN Opioid Reversal Nitroglycerin 0.4 mg 10/08/17 10:43 Nitrostat SUBLINGUAL Q5M PRN Chest Pain Ondansetron HCl 4 mg 10/08/17 10:36 Zofran IVP Q8HR PRN Nausea And Vomiting Intake and Output 10/07/17 10/08/17 10/08/17 22:59 06:59 14:59 Intake Total 120 Balance 120 Intake: Oral 120 Other: Weight 45.359 kg Patient Weight 10/09/17 06:59 Weight 45.359 kg 10/08/17 08:55 10/08/17 08:55 EKG Interpretations (text) EKG shows atrial fibrillation with moderately rapid ventricular response Assessment and Plan Plan: Assessment and plan #1 fall, patient states she clearly slipped onto the floor. No evidence of syncope. Patient denied any dizziness or lightheadedness, no palpitations, no chest discomfort or shortness of breath. #2 chronic persistent atrial fibrillation #3 abnormal troponin, patient denies any chest discomfort, breathing is been stable. We will obtain 2 subsequent troponins as well as an echocardiogram with Doppler study. #3 were matured arthritis, stable #4 hypertension, stable #5 kyphosis Plan We will obtain an echocardiogram with Doppler study as well as 2 subsequent troponins. Continue current therapy. Further recommendations to follow. DNP note has been reviewed, I agree with a documented findings and plan of care. Patient was seen and examined.
[2017-10-08] MEDS: DIGOXIN 125 MCG TAB PO SCH (15:20)
[2017-10-08] MEDS: DILTIAZEM ORAL 30 MG TAB PO SCH ×2 (15:20→20:30)
[2017-10-08] MEDS: APIXABAN 2.5 MG TABLET PO SCH ×2 (15:21→20:28)
--- NOTE | 2017-10-08 15:24 | P.HPIM ---
History of Present Illness H&P Date: 10/08/17 Chief Complaint: Fall This is an 89-year-old female patient of Dr. Hernandez with a past medical history of chronic atrial fibrillation, kyphoscoliosis, prior TIA, hypertension and hyperlipidemia. Patient denies history of rheumatoid arthritis. Patient resides at [facility] and was recently hospitalized in May after a fall secondary to dehydration and pneumonia. Patient states that yesterday she was trying to get to the commode chair and slipped and fell, hitting her head but no loss of consciousness. She denies having any dysuria. She does complain of a cough with sputum production for 2 days. No diarrhea. Patient does have significant bruising to the left posterior chest wall. Patient was unable to get herself up after her fall. She was brought into [facility] emergency center for evaluation. Patient is found to be afebrile but with a white count of 25, hemoglobin was 13.1. BUN 31 creatinine 0.45. Blood sugar was 147. CK was 536. Urinalysis was turbid, squamous cells 62. Vital signs were stable. EKG was atrial fibrillation. Chest x-ray showed a right-sided pneumonia. Pelvis x-ray showed no fracture or dislocation. Troponin elevated at 0.103. Patient was diagnosed in the ER with fall, UTI and leukocytosis and places in observation status on the selective care unit and cardiology consult requested along with serial troponins. Review of Systems All systems: negative Constitutional: Reports fatigue, Reports poor appetite, Reports weakness, Denies chills, Denies fever Eyes: denies blurred vision, denies pain Ears, nose, mouth and throat: Denies headache, Denies sore throat Cardiovascular: Denies chest pain, Denies decreased exercise tolerance, Denies dyspnea on exertion, Denies lightheadedness, Denies shortness of breath, Denies syncope Respiratory: Reports cough, Reports cough with sputum, Denies dyspnea, Denies excessive sputum, Denies hemoptysis, Denies home oxygen, Denies wheezing Gastrointestinal: Denies abdominal pain, Denies diarrhea, Denies nausea, Denies vomiting Genitourinary: Denies dysuria, Denies hematuria Musculoskeletal: Denies myalgias Integumentary: Denies pruritus, Denies rash Neurological: Denies numbness, Denies weakness Psychiatric: Denies anxiety, Denies depression Endocrine: Denies fatigue, Denies weight change Past Medical History Past Medical History: Atrial Fibrillation, CVA/TIA, Eye Disorder, Hearing Disorder / Deafness, Hyperlipidemia, Hypertension, Pneumonia Additional Past Medical History / Comment(s): Patient says she had a "questionable stroke"-no deficits, [place] bilaterally, bilateral eyes glaucoma, kyphoscoliosis. History of Any Multi-Drug Resistant Organisms: None Reported Past Surgical History: Adenoidectomy, Appendectomy, Cholecystectomy, Tonsillectomy Additional Past Surgical History / Comment(s): colonoscopy Past Anesthesia/Blood Transfusion Reactions: No Reported Reaction Smoking Status: Never smoker Additional Past Alcohol Use History / Comment(s): Patient is a lifelong nonsmoker, no illicit drug use, no alcohol use. She currently resides at [facility]. She uses a walker for ambulation. - Past Family History Sister(s) Additional Family Medical History / Comment(s): Brain tumor- in her 50's. Mother Family Medical History: No Reported History Additional Family Medical History / Comment(s): Mother was healthy and lived to be 86yrs old. She from heart problems related to rheumatic fever Father Family Medical History: CVA/TIA Additional Family Medical History / Comment(s): Father from a CVA at the age of 70yrs. Brother(s) Additional Family Medical History / Comment(s): Patient has 1 brother with no major medical problems. Daughter(s) Additional Family Medical History / Comment(s): Patient has 5 children: 3 sons and 2 daughters with no major medical problems. Medications and Allergies Home Medications Medication Instructions Recorded Confirmed Type Cholecalciferol [Vitamin D3] 2,000 unit PO DAILY 03/23/15 10/08/17 History Ubidecarenone [Co Q-10] 100 mg PO DAILY 03/23/15 10/08/17 History Aspirin 81 mg PO HS 07/10/16 10/08/17 History Latanoprost Ophth [Xalatan 0.005%] 1 drop BOTH EYES HS 07/10/16 10/08/17 History Apixaban [Eliquis] 2.5 mg PO BID 09/06/16 10/08/17 History Calcium Carbonate [Calcium] 1,200 mg PO DAILY 09/06/16 10/08/17 History Digoxin [Digitek] 125 mcg PO DAILY 09/06/16 10/08/17 History Diltiazem HCl 30 mg PO TID 05/18/17 10/08/17 History Dorzolamide HCl [Trusopt 2%] 1 drop BOTH EYES BID 05/18/17 10/08/17 History Simvastatin [Zocor] 10 mg PO HS 05/18/17 10/08/17 History Allergies Allergy/AdvReac Type Severity Reaction Status Date / Time chocolate flavor Allergy Unknown Verified 10/08/17 10:25 Physical Exam Vitals: Vital Signs Temp Pulse Pulse Resp BP BP Pulse Ox 10/08/17 12:52 97.2 F L 78 14 127/71 95 10/08/17 11:23 98.3 F 76 18 101/56 96 10/08/17 08:16 97.3 F L 104 H 18 139/69 96 Intake and Output 10/07/17 10/08/17 10/08/17 22:59 06:59 14:59 Intake Total 120 Balance 120 Intake: Oral 120 Other: Weight 45.359 kg Gen: This is an 89-year-old female. She is sitting up in bed and appears to be comfortable. HEENT: Head is atraumatic, normocephalic. Pupils equal, round. Sclerae is anicteric. NECK: Supple. No JVD. No lymphadenopathy. No thyromegaly. LUNGS: Clear to auscultation. No wheezes or rhonchi. No intercostal retractions. HEART: Irregular rate and rhythm. Systolic murmur. ABDOMEN: Soft. Bowel sounds are present. No masses. No tenderness. EXTREMITIES: No pedal edema. No calf tenderness. Dorsalis pedis +1 bilaterally. NEUROLOGICAL: Patient is awake, alert and oriented x3. Cranial nerves 2 through 12 are grossly intact. Generalized weakness noted. Results CBC & Chem 7: 10/08/17 08:55 10/08/17 08:55 Labs: Abnormal Lab Results - Last 24 Hours (Table) 10/08/17 10/08/17 10/08/17 Range/Units 08:55 08:55 08:55 WBC 25.1 H* (3.8-10.6) k/uL Neutrophils # (Manual) 22.50 H (1.3-7.7) k/uL Monocytes # (Manual) 1.26 H (0-1.0) k/uL Chloride 96 L (98-107) mmol/L BUN 31 H (7-17) mg/dL Creatinine 0.45 L (0.52-1.04) mg/dL Glucose 147 H (74-99) mg/dL Creatine Kinase 536 H (30-135) U/L Troponin I 0.103 H* (0.000-0.034) ng/mL Urine Appearance (Clear) Urine Protein (Negative) Urine Glucose (UA) (Negative) Urine Ketones (Negative) Urine Blood (Negative) Ur Leukocyte Esterase (Negative) Urine RBC (0-5) /hpf Urine WBC (0-5) /hpf Urine WBC Clumps (None) /hpf Ur Squamous Epith Cells (0-4) /hpf Urine Bacteria (None) /hpf 10/08/17 Range/Units 09:31 WBC (3.8-10.6) k/uL Neutrophils # (Manual) (1.3-7.7) k/uL Monocytes # (Manual) (0-1.0) k/uL Chloride (98-107) mmol/L BUN (7-17) mg/dL Creatinine (0.52-1.04) mg/dL Glucose (74-99) mg/dL Creatine Kinase (30-135) U/L Troponin I (0.000-0.034) ng/mL Urine Appearance Turbid H (Clear) Urine Protein 2+ H (Negative) Urine Glucose (UA) 1+ H (Negative) Urine Ketones 1+ H (Negative) Urine Blood Moderate H (Negative) Ur Leukocyte Esterase Large H (Negative) Urine RBC 62 H (0-5) /hpf Urine WBC >182 H (0-5) /hpf Urine WBC Clumps Many H (None) /hpf Ur Squamous Epith Cells 62 H (0-4) /hpf Urine Bacteria Moderate H (None) /hpf Thrombosis Risk Factor Assmnt - DVT/VTE Prophylaxis DVT/VTE Prophylaxis: Pharmacologic Prophylaxis ordered - Choose All That Apply Any of the Below Risk Factors Present?: Yes Other Risk Factors: Yes Each Risk Factor Represents 3 Points: Age 75 years or older Other congenital or acquired thrombophilia - If yes, enter type in comment: No Thrombosis Risk Factor Assessment Total Risk Factor Score: 3 Thrombosis Risk Factor Assessment Level: Moderate Risk Assessment and Plan Plan: 1. Fall with no loss of consciousness. Pelvis and chest x-ray are negative for fractures. Patient is noted to have ecchymosis on the left posterior chest wall. Incentive spirometry to reduce incidence of atelectasis and hospital- acquired pneumonia. 2. Chronic atrial fibrillation. Continue eliquis, digoxin, Cardizem 3. Elevated troponin. Cardiology consult. Repeat troponins and echocardiogram. Patient is on aspirin, Lipitor. 4. Hypertension. 5. Patient denies history of rheumatoid arthritis. 6. Leukocytosis with possible urinary tract infection with possible sepsis. We have requested a new urinalysis and urine culture. Patient is currently on ceftriaxone which will be continued. Patient has IV fluid bolus and will continue on 75 mL per hour. 7. Glaucoma. Continue eyedrops. 8. Hyperlipidemia. Continue simvastatin or equivalent. 9. DVT prophylaxis. Eliquis 10.GI prophylaxis. Pepcid Patient placed as an observation status. Discharge plan: Most likely return to [facility]. PT and OT requested. Impression and plan of care have been directed as dictated by the signing physician. Karyn Ramirez nurse practitioner acting as scribe for signing physician.
[2017-10-08 15:40] LABS: Appearance,Urine Cloudy (Clear); Bilirubin,Urine Negative (Negative); Blood,Urine Small (Negative); Color,Urine Yellow; Glucose,Urine (UA) Trace (Negative); Ketones,Urine 1+ (Negative); Leukocyte Esterase,Urine Large (Negative); Mucus,Urine Rare /hpf; Nitrite,Urine Negative (Negative); PH, Urine 6.5 (5.0-8.0); Protein,Urine 1+ (Negative); RBC,Urine 19 /hpf (0-5); Specific Gravity,Urine 1.016 (1.001-1.035); Squamous Epithelial Cell,Urine 3 /hpf (0-4); Urobilinogen,Urine <2.0 mg/dL (<2.0); WBC,Urine 21 /hpf (0-5)
[2017-10-08 15:53] LABS: Troponin I 0.101 ng/mL (0.000-0.034)
[2017-10-08] MEDS: ASPIRIN 81 MG PO SCH (20:28)
[2017-10-08] MEDS: ATORVASTATIN 10 MG TAB PO SCH (20:28)
[2017-10-08] MEDS: LATANOPROST 0.005% OPHTH DROPS 2.5 ML BTL BOTH EYES SCH (20:29)
[2017-10-08] MEDS: DORZOLAMIDE HCL 2% DROPS 10 ML BTL BOTH EYES SCH (20:29)
[2017-10-08 21:49] LABS: Troponin I 0.057 ng/mL (0.000-0.034)
[2017-10-09 06:41] LABS: Basophils % (A) 0 %; Eosinophils % (A) 0 %; HCT 36.2 % (34.0-46.0); HGB 11.9 gm/dL (11.4-16.0); Lymphocytes # (A) 1.2 k/uL (1.0-4.8); Lymphocytes % (A) 11 %; MCH 28.7 pg (25.0-35.0); MCHC 32.8 g/dL (31.0-37.0); MCV 87.6 fL (80.0-100.0); Mean Platelet Volume 8.2; Monocytes # (A) 0.4 k/uL (0-1.0); Monocytes % (A) 4 %; Neutrophils # (A) 8.5 k/uL (1.3-7.7); Neutrophils % (A) 83 %; Platelet Count 153 k/uL (150-450); RBC 4.13 m/uL (3.80-5.40); RDW 13.6 % (11.5-15.5); WBC 10.2 k/uL (3.8-10.6)
[2017-10-09 07:01] LABS: ALT 27 U/L (9-52); AST 38 U/L (14-36); Alkaline Phosphatase 56 U/L (38-126); Anion Gap 9 mmol/L; Blood Urea Nitrogen 26 mg/dL (7-17); Calcium 8.1 mg/dL (8.4-10.2); Carbon Dioxide 27 mmol/L (22-30); Chloride 99 mmol/L (98-107); Cholesterol 164 mg/dL (<200); Glucose 121 mg/dL (74-99); HDL Cholesterol 67 mg/dL (40-60); LDL Cholesterol,Calculated 88 mg/dL (0-99); Potassium 3.5 mmol/L (3.5-5.1); Sodium 135 mmol/L (137-145); Total Bilirubin 0.6 mg/dL (0.2-1.3); Total Protein 5.5 g/dL (6.3-8.2); Triglycerides 43 mg/dL (<150)
[2017-10-09] MEDS ORDERED: ASPIRIN 325 MG TAB PO SCH (09:00)
[2017-10-09] MEDS: DILTIAZEM ORAL 30 MG TAB PO SCH ×3 (09:06→20:52)
[2017-10-09] MEDS: DORZOLAMIDE HCL 2% DROPS 10 ML BTL BOTH EYES SCH ×2 (09:06→20:53)
[2017-10-09] MEDS: CHOLECALCIFEROL 1,000 UNIT TAB PO SCH (09:06)
[2017-10-09] MEDS: CALCIUM CARBONATE 500 MG CHEWABLE PO SCH (09:06)
[2017-10-09] MEDS: APIXABAN 2.5 MG TABLET PO SCH ×2 (09:06→20:52)
[2017-10-09] MEDS: DIGOXIN 125 MCG TAB PO SCH (09:06)
[2017-10-09] MEDS: cefTRIAXone IN SWFI 1,000 MG/10 ML SYRINGE IVP SCH (09:10)
--- NOTE | 2017-10-09 13:34 | P.PN ---
Subjective Progress Note Date: 10/09/17 This is an 89-year-old female patient of Dr. Hernandez with a past medical history of chronic atrial fibrillation, kyphoscoliosis, prior TIA, hypertension and hyperlipidemia. Patient denies history of rheumatoid arthritis. Patient resides at [facility] and was recently hospitalized in May after a fall secondary to dehydration and pneumonia. Patient states that yesterday she was trying to get to the commode chair and slipped and fell, hitting her head but no loss of consciousness. She denies having any dysuria. She does complain of a cough with sputum production for 2 days. No diarrhea. Patient does have significant bruising to the left posterior chest wall. Patient was unable to get herself up after her fall. She was brought into [facility] emergency center for evaluation. Patient is found to be afebrile but with a white count of 25, hemoglobin was 13.1. BUN 31 creatinine 0.45. Blood sugar was 147. CK was 536. Urinalysis was turbid, squamous cells 62. Vital signs were stable. EKG was atrial fibrillation. Chest x-ray showed a right-sided pneumonia. Pelvis x-ray showed no fracture or dislocation. Troponin elevated at 0.103. Patient was diagnosed in the ER with fall, UTI and leukocytosis and places in observation status on the selective care unit and cardiology consult requested along with serial troponins. 10/09: Repeat urinalysis was cloudy, blood small, leukoesterase large, RBCs 19, wbc's 21 and squamous cells 3 urine culture was also obtained yesterday afternoon. Triglycerides 43, cholesterol 164, LDL 88, HDL 67. Repeat troponins were 0.101 and 0.057. Cardiology is following the patient. Patient' s mental status is improving but she continues to have some mild confusion. Patient had to be straight cathed during the night with return of 1400 mL. Patient apparently didn't sleep well last night. Repeat WBC is down to 10 with BUN of 24 and creatinine 0.44. Patient has had a bowel movement she states she denies any nausea. Physical therapy and occupational therapy consults requested. Case management is following. Patient currently resides at [facility]. Urine culture remains in progress. Objective - Vital Signs Vital signs: Vital Signs Temp 97.6 F 10/09/17 04:00 Pulse 94 10/09/17 04:00 Resp 18 10/09/17 04:00 BP 121/76 10/09/17 04:00 Pulse Ox 98 10/09/17 04:00 Intake & Output 10/08/17 10/09/17 10/09/17 18:59 06:59 18:59 Intake Total 240 610 Output Total 1450 Balance 240 -840 Weight 45.359 kg 51 kg Intake: IV 610 0.9 610 Oral 240 Output: Urine 1450 Other: Voiding Method Bedpan Bedpan - Exam Gen: This is an 89-year-old female. She is sitting up in bed and appears to be comfortable. HEENT: Head is atraumatic, normocephalic. Pupils equal, round. Sclerae is anicteric. NECK: Supple. No JVD. No lymphadenopathy. No thyromegaly. LUNGS: Clear to auscultation. No wheezes or rhonchi. No intercostal retractions. HEART: Irregular rate and rhythm. Systolic murmur. ABDOMEN: Soft. Bowel sounds are present. No masses. No tenderness. EXTREMITIES: No pedal edema. No calf tenderness. Dorsalis pedis +1 bilaterally. NEUROLOGICAL: Patient is awake, alert and oriented x3. Cranial nerves 2 through 12 are grossly intact. Generalized weakness noted. - Labs CBC & Chem 7: 10/09/17 06:11 10/09/17 06:11 Labs: Abnormal Lab Results - Last 24 Hours (Table) 10/08/17 10/08/17 10/08/17 Range/Units 08:55 09:31 14:59 Neutrophils # (1.3-7.7) k/uL Sodium (137-145) mmol/L BUN (7-17) mg/dL Creatinine (0.52-1.04) mg/dL Glucose (74-99) mg/dL Calcium (8.4-10.2) mg/dL AST (14-36) U/L Total Creatine Kinase 613 H (30-135) U/L CK-MB (CK-2) 9.0 H* (0.0-2.4) ng/mL Troponin I 0.103 H* 0.101 H* (0.000-0.034) ng/mL Total Protein (6.3-8.2) g/dL Albumin (3.5-5.0) g/dL HDL Cholesterol (40-60) mg/dL Urine Appearance Turbid H (Clear) Urine Protein 2+ H (Negative) Urine Glucose (UA) 1+ H (Negative) Urine Ketones 1+ H (Negative) Urine Blood Moderate H (Negative) Ur Leukocyte Esterase Large H (Negative) Urine RBC 62 H (0-5) /hpf Urine WBC >182 H (0-5) /hpf Urine WBC Clumps Many H (None) /hpf Ur Squamous Epith Cells 62 H (0-4) /hpf Urine Bacteria Moderate H (None) /hpf Urine Mucus (None) /hpf 10/08/17 10/08/17 10/09/17 Range/Units 15:15 21:00 06:11 Neutrophils # 8.5 H (1.3-7.7) k/uL Sodium (137-145) mmol/L BUN (7-17) mg/dL Creatinine (0.52-1.04) mg/dL Glucose (74-99) mg/dL Calcium (8.4-10.2) mg/dL AST (14-36) U/L Total Creatine Kinase 605 H (30-135) U/L CK-MB (CK-2) 7.0 H* (0.0-2.4) ng/mL Troponin I 0.057 H* (0.000-0.034) ng/mL Total Protein (6.3-8.2) g/dL Albumin (3.5-5.0) g/dL HDL Cholesterol (40-60) mg/dL Urine Appearance Cloudy H (Clear) Urine Protein 1+ H (Negative) Urine Glucose (UA) Trace H (Negative) Urine Ketones 1+ H (Negative) Urine Blood Small H (Negative) Ur Leukocyte Esterase Large H (Negative) Urine RBC 19 H (0-5) /hpf Urine WBC 21 H (0-5) /hpf Urine WBC Clumps (None) /hpf Ur Squamous Epith Cells (0-4) /hpf Urine Bacteria (None) /hpf Urine Mucus Rare H (None) /hpf 10/09/17 Range/Units 06:11 Neutrophils # (1.3-7.7) k/uL Sodium 135 L (137-145) mmol/L BUN 26 H (7-17) mg/dL Creatinine 0.44 L (0.52-1.04) mg/dL Glucose 121 H (74-99) mg/dL Calcium 8.1 L (8.4-10.2) mg/dL AST 38 H (14-36) U/L Total Creatine Kinase (30-135) U/L CK-MB (CK-2) (0.0-2.4) ng/mL Troponin I (0.000-0.034) ng/mL Total Protein 5.5 L (6.3-8.2) g/dL Albumin 3.0 L (3.5-5.0) g/dL HDL Cholesterol 67 H (40-60) mg/dL Urine Appearance (Clear) Urine Protein (Negative) Urine Glucose (UA) (Negative) Urine Ketones (Negative) Urine Blood (Negative) Ur Leukocyte Esterase (Negative) Urine RBC (0-5) /hpf Urine WBC (0-5) /hpf Urine WBC Clumps (None) /hpf Ur Squamous Epith Cells (0-4) /hpf Urine Bacteria (None) /hpf Urine Mucus (None) /hpf Microbiology - Last 24 Hours (Table) 10/08/17 15:15 Urine Culture - Preliminary Urine,Clean Catch Assessment and Plan Plan: 1. Fall with no loss of consciousness. Pelvis and chest x-ray are negative for fractures. Patient is noted to have ecchymosis on the left posterior chest wall. Incentive spirometry to reduce incidence of atelectasis and hospital- acquired pneumonia. 2. Chronic atrial fibrillation. Continue eliquis, digoxin, Cardizem 3. Elevated troponin. Cardiology consult. Repeat troponins and echocardiogram. Patient is on aspirin, Lipitor. 4. Hypertension. 5. Patient denies history of rheumatoid arthritis. 6. Leukocytosis with urinary tract infection with possible sepsis. We have requested a new urinalysis and urine culture. Patient is currently on ceftriaxone which will be continued. Patient has IV fluid bolus and will continue on 75 mL per hour. 7. Glaucoma. Continue eyedrops. 8. Hyperlipidemia. Continue simvastatin or equivalent. 9. DVT prophylaxis. Eliquis 10.GI prophylaxis. Pepcid Inpatient status for a minimum of 2 night stay. Discharge plan: Most likely return to [facility]. PT and OT requested. Impression and plan of care have been directed as dictated by the signing physician. Karyn Ramirez nurse practitioner acting as scribe for signing physician.
--- NOTE | 2017-10-09 14:23 | P.PN ---
Subjective Progress Note Date: 10/09/17 This is a pleasant 89-year-old female with known history of chronic persistent atrial fibrillation, kyphoscoliosis, prior TIA, hypertension, hyperlipidemia rheumatoid arthritis, who was brought to the hospital after experiencing a fall. According to the patient, she was attempting to get out of bed to go to the commode when she slipped down and fell onto the floor. She denies passing out, denies any dizziness or lightheadedness. She denies having any chest discomfort, no shortness of breath. EKG performed on arrival here shows atrial fibrillation with a moderately rapid ventricular response. Chest x -ray did not reveal any acute cardiopulmonary process. Blood pressure 127/70 with a heart rate in the 70s, 95% on room air. White blood cell count 25.1, hemoglobin 13.1, platelet count 185. Sodium 137, potassium 3.8, BUN 31, creatinine 0.45. Troponin 0.103. Cardiology consultation was requested because of abnormal troponin. 10/09/2017 Patient was seen and examined today, mental status changes seems to be mildly improving overall. Continues to be confused this morning. At pressure 130/60 with a heart rate in the 80s, temperature 96.8. White blood cell count 10.2, hemoglobin 11.9, platelet count 153. Sodium 135, potassium 3.5, BUN 26, creatinine 0.4. Troponins 0.10, 0.10, 0.05. Objective - Vital Signs Vital signs: Vital Signs Temp 98.0 F 10/09/17 08:00 Pulse 100 10/09/17 12:00 Resp 18 10/09/17 12:00 BP 132/66 10/09/17 08:00 Pulse Ox 92 L 10/09/17 08:00 Intake & Output 10/08/17 10/09/17 10/09/17 18:59 06:59 18:59 Intake Total 240 610 240 Output Total 1450 Balance 240 -840 240 Weight 45.359 kg 51 kg Intake: IV 610 0.9 610 Oral 240 240 Output: Urine 1450 Other: Voiding Method Bedpan Bedpan Bedpan # Voids 50 # Bowel Movements 1 - Exam PHYSICAL EXAMINATION: HEENT: Head is atraumatic, normocephalic. Pupils equal, round. Neck is supple. There is no elevated jugular venous pressure. HEART EXAMINATION: Heart S1 and S2 irregularly irregular a systolic murmur is heard. CHEST EXAMINATION: Lungs are clear to auscultation and precussion. No chest wall tenderness is noted on palpation or with deep breathing. ABDOMEN: Soft, nontender. Bowel sounds are heard. No organomegaly noted. EXTREMITIES: 1+ peripheral pulses with trace evidence of peripheral edema and evidence of bilateral venous stasis . NEUROLOGIC patient is awake, alert and oriented -3. - Labs CBC & Chem 7: 10/09/17 06:11 10/09/17 06:11 Labs: Abnormal Lab Results - Last 24 Hours (Table) 10/08/17 10/08/17 10/08/17 Range/Units 14:59 15:15 21:00 Neutrophils # (1.3-7.7) k/uL Sodium (137-145) mmol/L BUN (7-17) mg/dL Creatinine (0.52-1.04) mg/dL Glucose (74-99) mg/dL Calcium (8.4-10.2) mg/dL AST (14-36) U/L Total Creatine Kinase 613 H 605 H (30-135) U/L CK-MB (CK-2) 9.0 H* 7.0 H* (0.0-2.4) ng/mL Troponin I 0.101 H* 0.057 H* (0.000-0.034) ng/mL Total Protein (6.3-8.2) g/dL Albumin (3.5-5.0) g/dL HDL Cholesterol (40-60) mg/dL Urine Appearance Cloudy H (Clear) Urine Protein 1+ H (Negative) Urine Glucose (UA) Trace H (Negative) Urine Ketones 1+ H (Negative) Urine Blood Small H (Negative) Ur Leukocyte Esterase Large H (Negative) Urine RBC 19 H (0-5) /hpf Urine WBC 21 H (0-5) /hpf Urine Mucus Rare H (None) /hpf 10/09/17 10/09/17 Range/Units 06:11 06:11 Neutrophils # 8.5 H (1.3-7.7) k/uL Sodium 135 L (137-145) mmol/L BUN 26 H (7-17) mg/dL Creatinine 0.44 L (0.52-1.04) mg/dL Glucose 121 H (74-99) mg/dL Calcium 8.1 L (8.4-10.2) mg/dL AST 38 H (14-36) U/L Total Creatine Kinase (30-135) U/L CK-MB (CK-2) (0.0-2.4) ng/mL Troponin I (0.000-0.034) ng/mL Total Protein 5.5 L (6.3-8.2) g/dL Albumin 3.0 L (3.5-5.0) g/dL HDL Cholesterol 67 H (40-60) mg/dL Urine Appearance (Clear) Urine Protein (Negative) Urine Glucose (UA) (Negative) Urine Ketones (Negative) Urine Blood (Negative) Ur Leukocyte Esterase (Negative) Urine RBC (0-5) /hpf Urine WBC (0-5) /hpf Urine Mucus (None) /hpf Microbiology - Last 24 Hours (Table) 10/08/17 15:15 Urine Culture - Preliminary Urine,Clean Catch Assessment and Plan Plan: Assessment and plan #1 fall, patient states she clearly slipped onto the floor. No evidence of syncope. Patient denied any dizziness or lightheadedness, no palpitations, no chest discomfort or shortness of breath. #2 chronic persistent atrial fibrillation #3 abnormal troponin, patient denies any chest discomfort, breathing is been stable. We will obtain 2 subsequent troponins as well as an echocardiogram with Doppler study. #3 were matured arthritis, stable #4 hypertension, stable #5 kyphosis Plan Subsequent troponins 0.1, 0.5. Echocardiogram with Doppler study remains pending. From cardiology's perspective we will continue current therapy. DNP note has been reviewed, I agree with a documented findings and plan of care. Patient was seen and examined.
[2017-10-09] MEDS: ASPIRIN 81 MG PO SCH (20:52)
[2017-10-09] MEDS: ATORVASTATIN 10 MG TAB PO SCH (20:52)
[2017-10-09] MEDS: LATANOPROST 0.005% OPHTH DROPS 2.5 ML BTL BOTH EYES SCH (20:53)
[2017-10-10 06:45] LABS: Anion Gap 7 mmol/L; Blood Urea Nitrogen 18 mg/dL (7-17); Calcium 8.5 mg/dL (8.4-10.2); Carbon Dioxide 28 mmol/L (22-30); Chloride 99 mmol/L (98-107); Creatine Kinase 257 U/L (30-135); Glucose 101 mg/dL (74-99); Potassium 3.8 mmol/L (3.5-5.1); Sodium 134 mmol/L (137-145)
[2017-10-10] MEDS: DIGOXIN 125 MCG TAB PO SCH (08:29)
[2017-10-10] MEDS: DILTIAZEM ORAL 30 MG TAB PO SCH ×2 (08:29→16:46)
[2017-10-10] MEDS: APIXABAN 2.5 MG TABLET PO SCH (08:29)
[2017-10-10] MEDS: CALCIUM CARBONATE 500 MG CHEWABLE PO SCH (08:29)
[2017-10-10] MEDS: CHOLECALCIFEROL 1,000 UNIT TAB PO SCH (08:29)
[2017-10-10] MEDS: LATANOPROST 0.005% OPHTH DROPS 2.5 ML BTL BOTH EYES SCH (08:30)
[2017-10-10] MEDS: cefTRIAXone IN SWFI 1,000 MG/10 ML SYRINGE IVP SCH (08:32)
[2017-10-10 08:45] VITALS: RESP 16; TEMP 96
--- NOTE | 2017-10-10 11:51 | ECHOF ---
Referral Reason:sob MEASUREMENTS -------- HEIGHT: 152.4 cm WEIGHT: 52.6 kg BP: 120/56 RVIDd: 3.1 cm (< 3.3) IVSd: 1.5 cm (0.6 - 1.1) LVIDd: 3.1 cm (3.9 - 5.3) LVPWd: 1.2 cm (0.6 - 1.1) IVSs: 1.5 cm LVIDs: 2.2 cm LVPWs: 1.3 cm LA Diam: 4.9 cm (2.7 - 3.8) LAESV Index (A-L): 64.85 ml/m Ao Diam: 3.3 cm (2.0 - 3.7) AV Cusp: 1.7 cm (1.5 - 2.6) LA Diam: 3.8 cm (2.7 - 3.8) MV E Anders: 0.97 m/s MV DecT: 184 ms MV A Anders: 0.01 m/s MV E/A Ratio: 507.40 RAP: 15.00 mmHg RVSP: 47.13 mmHg MV EF SLOPE: 116.15 mm/s (70 - 150) MV EXCURSION: 1.41 cm (> 18.000) FINDINGS -------- Atrial fibrillation. This was a technically good study. The left ventricular size is normal. There is mild concentric left ventricular hypertrophy. Overa ll left ventricular systolic function is normal with, an EF between 55 - 60 %. The right ventricle is normal in size and function. LA is severely dilated >40 ml/m2 RA appears enlarged. Aortic valve is trileaflet and is mildly thickened. There is no evidence of aortic regurgitation. There is no evidence of aortic stenosis. The mitral valve leaflets are mildly thickened. Mild mitral annular calcification present. Modera [id number] mitral regurgitation is present. Moderate tricuspid regurgitation present. There is mild pulmonary hypertension. The right ventric ular systolic pressure, as measured by Doppler, is 47.13mmHg. Trace/mild (physiologic) pulmonic regurgitation. The aortic root size is normal. The inferior vena cava is dilated with poor inspiratory collapse which is consistent with estimated r ight atrial pressure of 20 mmHg. There is no pericardial effusion. CONCLUSIONS -------- 1. Atrial fibrillation. 2. This was a technically good study. 3. The left ventricular size is normal. 4. There is mild concentric left ventricular hypertrophy. 5. Overall left ventricular systolic function is normal with, an EF between 55 - 60 %. 6. LA is severely dilated >40 ml/m2 7. RA appears enlarged. 8. Aortic valve is trileaflet and is mildly thickened. 9. The mitral valve leaflets are mildly thickened. 10. Mild mitral annular calcification present. 11. [id number] mitral regurgitation is present. 12. Moderate tricuspid regurgitation present. 13. There is mild pulmonary hypertension. 14. The right ventricular systolic pressure, as measured by Doppler, is 47.13mmHg. 15. Trace/mild (physiologic) pulmonic regurgitation. 16. The aortic root size is normal. 17. The inferior vena cava is dilated with poor inspiratory collapse which is consistent with estimat ed right atrial pressure of 20 mmHg. 18. There is no pericardial effusion. HAND [employer]IPPER TRIMMER: Caleb Mcnulty RDCS
[2017-10-10] MEDS: DORZOLAMIDE HCL 2% DROPS 10 ML BTL BOTH EYES SCH (12:12)
[2017-10-10 12:25] VITALS: BP 142/85; PULSE 92
--- NOTE | 2017-10-10 14:04 | P.PN ---
Subjective Progress Note Date: 10/10/17 This is a pleasant 89-year-old female with known history of chronic persistent atrial fibrillation, kyphoscoliosis, prior TIA, hypertension, hyperlipidemia rheumatoid arthritis, who was brought to the hospital after experiencing a fall. According to the patient, she was attempting to get out of bed to go to the commode when she slipped down and fell onto the floor. She denies passing out, denies any dizziness or lightheadedness. She denies having any chest discomfort, no shortness of breath. EKG performed on arrival here shows atrial fibrillation with a moderately rapid ventricular response. Chest x -ray did not reveal any acute cardiopulmonary process. Blood pressure 127/70 with a heart rate in the 70s, 95% on room air. White blood cell count 25.1, hemoglobin 13.1, platelet count 185. Sodium 137, potassium 3.8, BUN 31, creatinine 0.45. Troponin 0.103. Cardiology consultation was requested because of abnormal troponin. 10/09/2017 Patient was seen and examined today, mental status changes seems to be mildly improving overall. Continues to be confused this morning. At pressure 130/60 with a heart rate in the 80s, temperature 96.8. White blood cell count 10.2, hemoglobin 11.9, platelet count 153. Sodium 135, potassium 3.5, BUN 26, creatinine 0.4. Troponins 0.10, 0.10, 0.05. 10/10/2017 Patient was seen and examined this morning, feeling well overall. No complaints. Echocardiogram with Doppler study revealed normal left ventricular systolic function. Patient denies chest pain breathing is stable. No dizziness or lightheadedness. Objective - Vital Signs Vital signs: Vital Signs Temp 96 F L 10/10/17 08:00 Pulse 92 10/10/17 12:00 Resp 16 10/10/17 12:00 BP 142/85 10/10/17 12:00 Pulse Ox 96 10/10/17 12:00 Intake & Output 10/09/17 10/10/17 10/10/17 18:59 06:59 18:59 Intake Total 360 Output Total 525 500 Balance -165 -500 Weight 53 kg Intake: Oral 360 Output: Urine 525 500 Other: Voiding Method Bedpan Bedside Commode Bedside Commode Bedpan Bedpan # Voids 50 2 1 # Bowel Movements 1 0 - Exam PHYSICAL EXAMINATION: HEENT: Head is atraumatic, normocephalic. Pupils equal, round. Neck is supple. There is no elevated jugular venous pressure. HEART EXAMINATION: Heart S1 and S2 irregularly irregular a systolic murmur is heard. CHEST EXAMINATION: Lungs are clear to auscultation and precussion. No chest wall tenderness is noted on palpation or with deep breathing. ABDOMEN: Soft, nontender. Bowel sounds are heard. No organomegaly noted. EXTREMITIES: 1+ peripheral pulses with trace evidence of peripheral edema and evidence of bilateral venous stasis . NEUROLOGIC patient is awake, alert and oriented -3. - Labs CBC & Chem 7: 10/09/17 06:11 10/10/17 06:11 Labs: Abnormal Lab Results - Last 24 Hours (Table) 10/10/17 Range/Units 06:11 Sodium 134 L (137-145) mmol/L BUN 18 H (7-17) mg/dL Creatinine 0.50 L (0.52-1.04) mg/dL Glucose 101 H (74-99) mg/dL Creatine Kinase 257 H (30-135) U/L Microbiology - Last 24 Hours (Table) 10/08/17 15:15 Urine Culture - Final Urine,Clean Catch Assessment and Plan Plan: Assessment and plan #1 fall, patient states she clearly slipped onto the floor. No evidence of syncope. Patient denied any dizziness or lightheadedness, no palpitations, no chest discomfort or shortness of breath. #2 chronic persistent atrial fibrillation #3 abnormal troponin, patient denies any chest discomfort, breathing is been stable. We will obtain 2 subsequent troponins as well as an echocardiogram with Doppler study. #3 were matured arthritis, stable #4 hypertension, stable #5 kyphosis Plan Echo cardiogram with Doppler study revealed normal left ventricular systolic function from cardiology's perspective, patient may be able to be discharged home when cleared by primary. We will follow her here on an as-needed basis only, please don't hesitate to call with any questions. DNP note has been reviewed, I agree with a documented findings and plan of care. Patient was seen and examined.
--- NOTE | 2017-10-11 14:23 | P.DS ---
Providers Date of admission: 10/08/17 11:50 Expected date of discharge: 10/10/17 Attending physician: Leticia Clifford Consults: 10/08/17 10:36 Consult Physician Stat Consulting Provider: [facility] Consult Reason/Comments: Elevated troponin Do you want consulting provider notified?: Yes Primary care physician: Kyrie Hernandez [facility] Course: This is an 89-year-old female patient of Dr. Hernandez with a past medical history of chronic atrial fibrillation, kyphoscoliosis, prior TIA, hypertension and hyperlipidemia. Patient denies history of rheumatoid arthritis. Patient resides at [facility] and was recently hospitalized in May after a fall secondary to dehydration and pneumonia. Patient states that yesterday she was trying to get to the commode chair and slipped and fell, hitting her head but no loss of consciousness. She denies having any dysuria. She does complain of a cough with sputum production for 2 days. No diarrhea. Patient does have significant bruising to the left posterior chest wall. Patient was unable to get herself up after her fall. She was brought into [facility] emergency center for evaluation. Patient is found to be afebrile but with a white count of 25, hemoglobin was 13.1. BUN 31 creatinine 0.45. Blood sugar was 147. CK was 536. Urinalysis was turbid, squamous cells 62. Vital signs were stable. EKG was atrial fibrillation. Chest x-ray showed a right-sided pneumonia. Pelvis x-ray showed no fracture or dislocation. Troponin elevated at 0.103. Patient was diagnosed in the ER with fall, UTI and leukocytosis and places in observation status on the selective care unit and cardiology consult requested along with serial troponins. 10/09: Repeat urinalysis was cloudy, blood small, leukoesterase large, RBCs 19, wbc's 21 and squamous cells 3 urine culture was also obtained yesterday afternoon. Triglycerides 43, cholesterol 164, LDL 88, HDL 67. Repeat troponins were 0.101 and 0.057. Cardiology is following the patient. Patient' s mental status is improving but she continues to have some mild confusion. Patient had to be straight cathed during the night with return of 1400 mL. Patient apparently didn't sleep well last night. Repeat WBC is down to 10 with BUN of 24 and creatinine 0.44. Patient has had a bowel movement she states she denies any nausea. Physical therapy and occupational therapy consults requested. Case management is following. Patient currently resides at [facility]. Urine culture remains in progress. 10/10: Echocardiogram reveals EF 55-60% with mild concentric left ventricular hypertrophy, elderly severely dilated at greater than 40, RA appears enlarged, mild mitral calcification, severe mitral regurgitation, moderate tricuspid regurgitation, mild pulmonary hypertension, estimated right atrial pressure of 20. Urine culture has been finalized with 10,000-49,000 colonies of skin or genital stephanie. Sodium is 134, BUN 15 creatinine 0.5. CK 257. PT has recommended return to current status. Patient will return to [facility] and son has arranged increased help. Patient will be discharged home today in stable condition. Discharge diagnoses: 1. Fall with no loss of consciousness. Pelvis and chest x-ray are negative for fractures. Patient is noted to have ecchymosis on the left posterior chest wall. 2. Chronic atrial fibrillation. 3. Elevated troponin. Acute coronary syndrome ruled out 4. Hypertension. 5. Patient denies history of rheumatoid arthritis. 6. Leukocytosis with urinary tract infection with possible sepsis. 7. Glaucoma. 8. Hyperlipidemia. Discharge plan: return to [facility]. Impression and plan of care have been directed as dictated by the signing physician. Karyn Ramirez nurse practitioner acting as scribe for signing physician. Patient Condition at Discharge: Good Plan - Discharge Summary Discharge Rx Participant: No New Discharge Prescriptions: New Cefuroxime [Ceftin] 250 mg PO BID #14 tablet Continue Cholecalciferol [Vitamin D3] 2,000 unit PO DAILY Ubidecarenone [Co Q-10] 100 mg PO DAILY Aspirin 81 mg PO HS Latanoprost Ophth [Xalatan 0.005%] 1 drop BOTH EYES HS Digoxin [Digitek] 125 mcg PO DAILY Calcium Carbonate [Calcium] 1,200 mg PO DAILY Apixaban [Eliquis] 2.5 mg PO BID Simvastatin [Zocor] 10 mg PO HS Diltiazem HCl 30 mg PO TID Dorzolamide HCl [Trusopt 2%] 1 drop BOTH EYES BID Discharge Medication List Cholecalciferol [Vitamin D3] 2,000 unit PO DAILY 03/23/15 [History] Ubidecarenone [Co Q-10] 100 mg PO DAILY 03/23/15 [History] Aspirin 81 mg PO HS 07/10/16 [History] Latanoprost Ophth [Xalatan 0.005%] 1 drop BOTH EYES HS 07/10/16 [History] Apixaban [Eliquis] 2.5 mg PO BID 09/06/16 [History] Calcium Carbonate [Calcium] 1,200 mg PO DAILY 09/06/16 [History] Digoxin [Digitek] 125 mcg PO DAILY 09/06/16 [History] Diltiazem HCl 30 mg PO TID 05/18/17 [History] Dorzolamide HCl [Trusopt 2%] 1 drop BOTH EYES BID 05/18/17 [History] Simvastatin [Zocor] 10 mg PO HS 05/18/17 [History] Cefuroxime [Ceftin] 250 mg PO BID #14 tablet 10/10/17 [Rx] Follow up Appointment(s)/Referral(s): Kyrie Hernandez MD [Primary Care Provider] - 10/17/17 10:30 am (With Maddie CARR) [facility] Visiting Nurse, [NON-STAFF] - Patient Instructions/Handouts: Urinary Tract Infection in Women (DC), Fall Prevention for Older Adults (DC) Discharge Disposition: HOME WITH HOME HEALTH SERVICES
== END 2017-10-10 17:21 | disposition home health service (06) | DRG 872 ==
LOC: EC 08:09 → 6SEL 10:04 → OBSVTOIN 11:50 → 6SEL 10-09 08:36
PROVIDERS: ADMIT Internal Medicine; ATTEND Internal Medicine
DX: A41.9 Sepsis, unspecified organism (principal); I48.2 Chronic atrial fibrillation; I27.20 Pulmonary hypertension, unspecified; I08.1 Rheumatic disorders of both mitral and tricuspid valves; N39.0 Urinary tract infection, site not specified; I10 Essential (primary) hypertension; R77.8 Other specified abnormalities of plasma proteins; H40.9 Unspecified glaucoma; E78.5 Hyperlipidemia, unspecified; R53.1 Weakness; R01.1 Cardiac murmur, unspecified; H91.90 Unspecified hearing loss, unspecified ear; M41.9 Scoliosis, unspecified; W01.0XXA Fall on same level from slipping, tripping and stumbling without subsequent striking against object, initial encounter; M19.90 Unspecified osteoarthritis, unspecified site; Z79.01 Long term (current) use of anticoagulants; Z79.82 Long term (current) use of aspirin; Z91.018 Allergy to other foods; Z82.3 Family history of stroke; Z90.89 Acquired absence of other organs; Z90.49 Acquired absence of other specified parts of digestive tract; Z86.73 Personal history of transient ischemic attack (TIA), and cerebral infarction without residual deficits; Z87.01 Personal history of pneumonia (recurrent); Z79.899 Other long term (current) drug therapy
CPT/HCPCS: 36415; 71046; 72170; 80048; 80053; 80061; 81001; 82550; 82553; 84484; 85025; 87086; 93005; 93306; 94760; 96361; 96374; 99285

== ENCOUNTER 2017-11-21 14:19 | Inpatient (IN) | payer MEDICARE ==
[2017-11-21 14:40] LABS: Glucose,Whole Blood 150 mg/dL (75-99)
--- NOTE | 2017-11-21 14:48 | ED ---
Altered Mental Status HPI - General Chief Complaint: Altered Mental Status Stated Complaint: ALTERED MENTAL STATUS Time Seen by Provider: 11/21/17 14:19 Source: EMS, RN notes reviewed, old records reviewed Mode of arrival: EMS Limitations: no limitations - History of Present Illness Initial Comments: This is an 89-year-old female with a history of chronic atrial fibrillation, hyperlipidemia urinary tract infection who is brought in for evaluation after being found lying on the floor unresponsive facedown. She was brought in by EMS he initially apparently had her tongue protruding was cyanotic after initial assessment she did start breathing on her own was still unresponsive. She was in noted have appear to be seizure-like activity with tonic-clonic activity lasting perhaps a minute. She was given Versed. Afterwards she stopped having the seizure-like activity she remained unresponsive. Abrasion was noted to the right for having no other initial site of injury she did have a cervical collar placed. No other history available at this time MD Complaint: decreased responsiveness - Related Data Home Medications Medication Instructions Recorded Confirmed Cholecalciferol [Vitamin D3] 2,000 unit PO DAILY 03/23/15 11/21/17 Ubidecarenone [Co Q-10] 100 mg PO DAILY 03/23/15 11/21/17 Aspirin 81 mg PO HS 07/10/16 11/21/17 Latanoprost Ophth [Xalatan 0.005%] 1 drop BOTH EYES HS 07/10/16 11/21/17 Apixaban [Eliquis] 2.5 mg PO BID 09/06/16 11/21/17 Calcium Carbonate [Calcium] 1,200 mg PO DAILY 09/06/16 11/21/17 Digoxin [Digitek] 125 mcg PO DAILY 09/06/16 11/21/17 Diltiazem HCl 30 mg PO TID 05/18/17 11/21/17 Simvastatin [Zocor] 10 mg PO HS 05/18/17 11/21/17 Dorzolamide-Timolol 2%/0.5% 1 drop BOTH EYES BID 11/21/17 11/21/17 [dorzolamide-Timolol 2%/0.5%] Allergies Allergy/AdvReac Type Severity Reaction Status Date / Time chocolate flavor Allergy Unknown Verified 11/21/17 15:53 Review of Systems ROS Statement: Those systems with pertinent positive or pertinent negative responses have been documented in the HPI. ROS Other: All systems not noted in ROS Statement are negative. Limitations: ROS unobtainable due to patients medical condition Past Medical History Past Medical History: Atrial Fibrillation, CVA/TIA, Eye Disorder, Hearing Disorder / Deafness, Hyperlipidemia, Hypertension, Pneumonia Additional Past Medical History / Comment(s): Patient says she had a "questionable stroke"-no deficits, [place] bilaterally, bilateral eyes glaucoma, kyphoscoliosis. History of Any Multi-Drug Resistant Organisms: None Reported Past Surgical History: Adenoidectomy, Appendectomy, Cholecystectomy, Tonsillectomy Additional Past Surgical History / Comment(s): colonoscopy Past Anesthesia/Blood Transfusion Reactions: No Reported Reaction Past Psychological History: No Psychological Hx Reported Smoking Status: Never smoker - Past Family History Sister(s) Additional Family Medical History / Comment(s): Brain tumor- in her 50's. Mother Family Medical History: No Reported History Additional Family Medical History / Comment(s): Mother was healthy and lived to be 86yrs old. She from heart problems related to rheumatic fever Father Family Medical History: CVA/TIA Additional Family Medical History / Comment(s): Father from a CVA at the age of 70yrs. Brother(s) Additional Family Medical History / Comment(s): Patient has 1 brother with no major medical problems. Daughter(s) Additional Family Medical History / Comment(s): Patient has 5 children: 3 sons and 2 daughters with no major medical problems. General Exam - General Exam Comments Initial Comments: This is a well-developed asthenic appearing female who is unresponsive cervical collar is in place Limitations: no limitations General appearance: obtunded Head exam: Present: other (Abrasion seen over the right 4 and no step-off crepitation no suture repair indicated.) Eye exam: Present: other (Pupils are fixed about 3 mm no reaction seen) ENT exam: Present: mucous membranes dry Neck exam: Present: other (Cervical collar in place no stridor JVD or bruits) Respiratory exam: Present: normal lung sounds bilaterally, other (Patient does demonstrate kyphoscoliosis no trauma noted) Cardiovascular Exam: Present: tachycardia, irregular rhythm GI/Abdominal exam: Present: soft, normal bowel sounds. Absent: distended, tenderness, guarding, rebound, rigid Extremities exam: Present: normal inspection, normal capillary refill Back exam: Present: other (Kyphoscoliosis no step-off or crepitation) Neurological exam: Present: other (Unresponsive) Psychiatric exam: Present: other (Unable to evaluate) Skin exam: Present: warm, dry, normal color. Absent: intact Course Vital Signs 11/21/17 11/21/17 11/21/17 14:21 14:59 15:26 Temperature 97.5 F L Pulse Rate 103 H 109 H 165 H Respiratory 16 16 16 Rate Blood Pressure 119/63 109/59 173/107 O2 Sat by Pulse 98 97 99 Oximetry 11/21/17 11/21/17 11/21/17 16:05 16:20 16:28 Temperature Pulse Rate 120 H 116 H 111 H Respiratory 18 20 18 Rate Blood Pressure 224/107 129/73 O2 Sat by Pulse 95 99 100 Oximetry - Reevaluation(s) Reevaluation #1: 11/21/17 17:18 Patient did require extra medication for recurrent seizures. He did have right sided seizure with gaze to the right right facial twitching right upper lower extremity activity. Reevaluation #2: 11/21/17 17:18 Patient did require IV Keppra IV Ativan with multiple doses. Reevaluation #3: 11/21/17 17:19 I did discuss case with Dr. Magallanes and with Dr. Breaux. Patient was admitted to ICU Medical Decision Making - Medical Decision Making The patient did require additional IV Ativan and IV dosing of Keppra the seizure activity finally. Be controlled. Patient will be admitted to intensive care unit with neuro consultation. I did discuss the CODE STATUS with the patient's son who was present the patient does not want to be intubated and is a no code. - Lab Data Result diagrams: 11/21/17 14:20 11/21/17 14:20 Lab Results 11/21/17 11/21/17 11/21/17 Range/Units 14:20 14:20 14:20 WBC 8.0 (3.8-10.6) k/uL RBC 4.94 (3.80-5.40) m/uL Hgb 14.2 (11.4-16.0) gm/dL Hct 45.0 (34.0-46.0) % MCV 91.1 (80.0-100.0) fL MCH 28.7 (25.0-35.0) pg MCHC 31.5 (31.0-37.0) g/dL RDW 13.0 (11.5-15.5) % Plt Count 195 (150-450) k/uL Neutrophils % 46 % Lymphocytes % 42 % Monocytes % 6 % Eosinophils % 1 % Basophils % 1 % Neutrophils # 3.7 (1.3-7.7) k/uL Lymphocytes # 3.4 (1.0-4.8) k/uL Monocytes # 0.5 (0-1.0) k/uL Eosinophils # 0.1 (0-0.7) k/uL Basophils # 0.1 (0-0.2) k/uL PT (9.0-12.0) sec INR (<1.2) APTT (22.0-30.0) sec Sodium 139 (137-145) mmol/L Potassium 3.8 (3.5-5.1) mmol/L Chloride 96 L (98-107) mmol/L Carbon Dioxide 22 (22-30) mmol/L Anion Gap 21 mmol/L BUN 28 H (7-17) mg/dL Creatinine 0.61 (0.52-1.04) mg/dL Est GFR (CKD-EPI)AfAm >90 (>60 ml/min/1.73 sqM) Est GFR (CKD-EPI)NonAf 81 (>60 ml/min/1.73 sqM) Glucose 165 H (74-99) mg/dL POC Glucose (mg/dL) (75-99) mg/dL POC Glu Test Preparer ID Calcium 9.9 (8.4-10.2) mg/dL Total Bilirubin 0.4 (0.2-1.3) mg/dL AST 29 (14-36) U/L ALT 27 (9-52) U/L Alkaline Phosphatase 64 (38-126) U/L Total Creatine Kinase 35 (30-135) U/L CK-MB (CK-2) 0.7 (0.0-2.4) ng/mL CK-MB (CK-2) Rel Index 2.0 Troponin I <0.012 (0.000-0.034) ng/mL Total Protein 6.6 (6.3-8.2) g/dL Albumin 4.1 (3.5-5.0) g/dL Urine Color Urine Appearance (Clear) Urine pH (5.0-8.0) Ur Specific [place] (1.001-1.035) Urine Protein (Negative) Urine Glucose (UA) (Negative) Urine Ketones (Negative) Urine Blood (Negative) Urine Nitrite (Negative) Urine Bilirubin (Negative) Urine Urobilinogen (<2.0) mg/dL Ur Leukocyte Esterase (Negative) Urine RBC (0-5) /hpf Urine WBC (0-5) /hpf Ur Squamous Epith Cells (0-4) /hpf Urine Mucus (None) /hpf Digoxin ng/mL Urine Opiates Screen (NotDetected) Ur Oxycodone Screen (NotDetected) Urine Methadone Screen (NotDetected) Ur Propoxyphene Screen (NotDetected) Ur Barbiturates Screen (NotDetected) U Tricyclic Antidepress (NotDetected) Ur Phencyclidine Scrn (NotDetected) Ur Amphetamines Screen (NotDetected) U Methamphetamines Scrn (NotDetected) U Benzodiazepines Scrn (NotDetected) Urine Cocaine Screen (NotDetected) U Marijuana (THC) Screen (NotDetected) Serum Alcohol <10 mg/dL Blood Type Blood Type Recheck Antibody Screen Spec Expiration Date 11/21/17 11/21/17 11/21/17 Range/Units 14:20 14:20 14:20 WBC (3.8-10.6) k/uL RBC (3.80-5.40) m/uL Hgb (11.4-16.0) gm/dL Hct (34.0-46.0) % MCV (80.0-100.0) fL MCH (25.0-35.0) pg MCHC (31.0-37.0) g/dL RDW (11.5-15.5) % Plt Count (150-450) k/uL Neutrophils % % Lymphocytes % % Monocytes % % Eosinophils % % Basophils % % Neutrophils # (1.3-7.7) k/uL Lymphocytes # (1.0-4.8) k/uL Monocytes # (0-1.0) k/uL Eosinophils # (0-0.7) k/uL Basophils # (0-0.2) k/uL PT 10.7 (9.0-12.0) sec INR 1.1 (<1.2) APTT 24.0 (22.0-30.0) sec Sodium (137-145) mmol/L Potassium (3.5-5.1) mmol/L Chloride (98-107) mmol/L Carbon Dioxide (22-30) mmol/L Anion Gap mmol/L BUN (7-17) mg/dL Creatinine (0.52-1.04) mg/dL Est GFR (CKD-EPI)AfAm (>60 ml/min/1.73 sqM) Est GFR (CKD-EPI)NonAf (>60 ml/min/1.73 sqM) Glucose (74-99) mg/dL POC Glucose (mg/dL) (75-99) mg/dL POC Glu Test Preparer ID Calcium (8.4-10.2) mg/dL Total Bilirubin (0.2-1.3) mg/dL AST (14-36) U/L ALT (9-52) U/L Alkaline Phosphatase (38-126) U/L Total Creatine Kinase (30-135) U/L CK-MB (CK-2) (0.0-2.4) ng/mL CK-MB (CK-2) Rel Index Troponin I (0.000-0.034) ng/mL Total Protein (6.3-8.2) g/dL Albumin (3.5-5.0) g/dL Urine Color Urine Appearance (Clear) Urine pH (5.0-8.0) Ur Specific [place] (1.001-1.035) Urine Protein (Negative) Urine Glucose (UA) (Negative) Urine Ketones (Negative) Urine Blood (Negative) Urine Nitrite (Negative) Urine Bilirubin (Negative) Urine Urobilinogen (<2.0) mg/dL Ur Leukocyte Esterase (Negative) Urine RBC (0-5) /hpf Urine WBC (0-5) /hpf Ur Squamous Epith Cells (0-4) /hpf Urine Mucus (None) /hpf Digoxin 0.6 ng/mL Urine Opiates Screen (NotDetected) Ur Oxycodone Screen (NotDetected) Urine Methadone Screen (NotDetected) Ur Propoxyphene Screen (NotDetected) Ur Barbiturates Screen (NotDetected) U Tricyclic Antidepress (NotDetected) Ur Phencyclidine Scrn (NotDetected) Ur Amphetamines Screen (NotDetected) U Methamphetamines Scrn (NotDetected) U Benzodiazepines Scrn (NotDetected) Urine Cocaine Screen (NotDetected) U Marijuana (THC) Screen (NotDetected) Serum Alcohol mg/dL Blood Type O Positive Blood Type Recheck No Antibody Screen NEGATIVE Spec Expiration Date 11/24/2017 - 231911/21/17 11/21/17 Range/Units 14:38 14:48 WBC (3.8-10.6) k/uL RBC (3.80-5.40) m/uL Hgb (11.4-16.0) gm/dL Hct (34.0-46.0) % MCV (80.0-100.0) fL MCH (25.0-35.0) pg MCHC (31.0-37.0) g/dL RDW (11.5-15.5) % Plt Count (150-450) k/uL Neutrophils % % Lymphocytes % % Monocytes % % Eosinophils % % Basophils % % Neutrophils # (1.3-7.7) k/uL Lymphocytes # (1.0-4.8) k/uL Monocytes # (0-1.0) k/uL Eosinophils # (0-0.7) k/uL Basophils # (0-0.2) k/uL PT (9.0-12.0) sec INR (<1.2) APTT (22.0-30.0) sec Sodium (137-145) mmol/L Potassium (3.5-5.1) mmol/L Chloride (98-107) mmol/L Carbon Dioxide (22-30) mmol/L Anion Gap mmol/L BUN (7-17) mg/dL Creatinine (0.52-1.04) mg/dL Est GFR (CKD-EPI)AfAm (>60 ml/min/1.73 sqM) Est GFR (CKD-EPI)NonAf (>60 ml/min/1.73 sqM) Glucose (74-99) mg/dL POC Glucose (mg/dL) 150 H (75-99) mg/dL POC Glu Test Preparer ID Dunsmore, Abiola Calcium (8.4-10.2) mg/dL Total Bilirubin (0.2-1.3) mg/dL AST (14-36) U/L ALT (9-52) U/L Alkaline Phosphatase (38-126) U/L Total Creatine Kinase (30-135) U/L CK-MB (CK-2) (0.0-2.4) ng/mL CK-MB (CK-2) Rel Index Troponin I (0.000-0.034) ng/mL Total Protein (6.3-8.2) g/dL Albumin (3.5-5.0) g/dL Urine Color Yellow Urine Appearance Clear (Clear) Urine pH 6.0 (5.0-8.0) Ur Specific [place] 1.015 (1.001-1.035) Urine Protein 1+ H (Negative) Urine Glucose (UA) Negative (Negative) Urine Ketones Negative (Negative) Urine Blood Trace H (Negative) Urine Nitrite Negative (Negative) Urine Bilirubin Negative (Negative) Urine Urobilinogen <2.0 (<2.0) mg/dL Ur Leukocyte Esterase Negative (Negative) Urine RBC 5 (0-5) /hpf Urine WBC 1 (0-5) /hpf Ur Squamous Epith Cells 1 (0-4) /hpf Urine Mucus Rare H (None) /hpf Digoxin ng/mL Urine Opiates Screen Not Detected (NotDetected) Ur Oxycodone Screen Not Detected (NotDetected) Urine Methadone Screen Not Detected (NotDetected) Ur Propoxyphene Screen Not Detected (NotDetected) Ur Barbiturates Screen Not Detected (NotDetected) U Tricyclic Antidepress Not Detected (NotDetected) Ur Phencyclidine Scrn Not Detected (NotDetected) Ur Amphetamines Screen Not Detected (NotDetected) U Methamphetamines Scrn Not Detected (NotDetected) U Benzodiazepines Scrn Not Detected (NotDetected) Urine Cocaine Screen Not Detected (NotDetected) U Marijuana (THC) Screen Not Detected (NotDetected) Serum Alcohol mg/dL Blood Type Blood Type Recheck Antibody Screen Spec Expiration Date - EKG Data -: EKG Interpreted by Me (Atrial fibrillation rate of 108 QRS 120 QT since QTC of 360/42 nonspecific ) - Radiology Data Radiology results: report reviewed (I did review the imaging and report no acute findings.), image reviewed Critical Care Time Critical Care Time: Yes Critical Care Time: 49 minutes of critical care time which includes monitoring initially EMS run and discussed with paramedics history physical labs x-rays multiple re- evaluations the patient several discussed with the patient's son and discussed with the admitting physician and ICU physician. Admission orders and documentation of the above. Disposition Clinical Impression: Status epilepticus, Dehydration, Forehead contusion, Forehead abrasion Disposition: ADMITTED IP TO THIS [facility] Condition: Serious Referrals: Kyrie Hernandez MD [Primary Care Provider] - 1-2 days
[2017-11-21 14:50] LABS: Basophils # (A) 0.1 k/uL (0-0.2); Basophils % (A) 1 %; Eosinophils # (A) 0.1 k/uL (0-0.7); Eosinophils % (A) 1 %; HGB 14.2 gm/dL (11.4-16.0); Lymphocytes # (A) 3.4 k/uL (1.0-4.8); Lymphocytes % (A) 42 %; MCH 28.7 pg (25.0-35.0); MCHC 31.5 g/dL (31.0-37.0); MCV 91.1 fL (80.0-100.0); Mean Platelet Volume 8.2; Monocytes # (A) 0.5 k/uL (0-1.0); Monocytes % (A) 6 %; Neutrophils # (A) 3.7 k/uL (1.3-7.7); Neutrophils % (A) 46 %; Platelet Count 195 k/uL (150-450); RBC 4.94 m/uL (3.80-5.40)
[2017-11-21 14:56] LABS: Appearance,Urine Clear (Clear); Bilirubin,Urine Negative (Negative); Blood,Urine Trace (Negative); Color,Urine Yellow; Glucose,Urine (UA) Negative (Negative); Ketones,Urine Negative (Negative); Leukocyte Esterase,Urine Negative (Negative); Mucus,Urine Rare /hpf; Nitrite,Urine Negative (Negative); Protein,Urine 1+ (Negative); RBC,Urine 5 /hpf (0-5); Specific Gravity,Urine 1.015 (1.001-1.035); Squamous Epithelial Cell,Urine 1 /hpf (0-4); Urobilinogen,Urine <2.0 mg/dL (<2.0); WBC,Urine 1 /hpf (0-5)
[2017-11-21 14:58] LABS: INR 1.1 (<1.2); Prothrombin Time 10.7 sec (9.0-12.0)
[2017-11-21 15:00] LABS: ALT 27 U/L (9-52); AST 29 U/L (14-36); Albumin 4.1 g/dL (3.5-5.0); Alcohol <10 mg/dL; Alkaline Phosphatase 64 U/L (38-126); Anion Gap 21 mmol/L; Blood Urea Nitrogen 28 mg/dL (7-17); Calcium 9.9 mg/dL (8.4-10.2); Carbon Dioxide 22 mmol/L (22-30); Chloride 96 mmol/L (98-107); Glucose 165 mg/dL (74-99); Potassium 3.8 mmol/L (3.5-5.1); Sodium 139 mmol/L (137-145); Total Bilirubin 0.4 mg/dL (0.2-1.3); Total Protein 6.6 g/dL (6.3-8.2)
[2017-11-21 15:02] LABS: Amphetamine Screen,Urine Not Detected (NotDetected); Barbiturate Screen,Urine Not Detected (NotDetected); Benzodiazepines Screen,Urine Not Detected (NotDetected); Cocaine Screen,Urine Not Detected (NotDetected); Methadone Screen, Urine Not Detected (NotDetected); Opiate Screen,Urine Not Detected (NotDetected); Oxycodone Screen, Urine Not Detected (NotDetected); Phencyclidine Screen,Urine Not Detected (NotDetected); Tricyclic Antidepressant,Urine Not Detected (NotDetected); Urn Cannabinoid Scrn Not Detected (NotDetected)
[2017-11-21 15:10] LABS: Creatine Kinase 35 U/L (30-135)
--- NOTE | 2017-11-21 15:17 | CT ---
EXAMINATION TYPE: CT brain nafisa kellogg DATE OF EXAM: 11/21/2017 COMPARISON: NONE HISTORY: Patient poor historian. Patient unresponsive at time of exam. Patient found on floor. Noreen rodriguez has contusion above right orbit. CT DLP: 1094.8 mGycm. Automated Exposure Control for Dose Reduction was Utilized. TECHNIQUE: CT scan of the head and cervical spine are performed without contrast. FINDINGS: A right supraorbital scalp hematoma measures 6 mm in greatest thickness. There is no acute intracranial hemorrhage or midline shift identified. There is diffuse ventricular and sulcal promine nce consistent with diffuse age-related cerebral atrophy. There is low-attenuation in the periventri cular white matter consistent with chronic small vessel ischemic change. No suspicious extra-axial fl uid collection. The globes are intact and the visualized sinuses are clear. Orbits and lamina papyr acea appear intact. There is an accentuated lordosis of the cervical spine. There is diffuse osseous demineralization. Ce rvical spine is visualized in its entirety from C1 through upper thoracic levels and demonstrates sat isfactory alignment without evidence of acute fracture or dislocation. Multilevel moderate degenerat chris change is seen with small posterior disc osteophyte complexes at C3-C4, C4-C5, C5-C6 and C6-C7 wi thout significant spinal canal stenosis. Uncovertebral hypertrophy and facet arthropathy creating mul tilevel neural foraminal narrowing. Incidental note of calcified biapical pleural-parenchymal plaques /scarring. There is slight is diffusely heterogenous. Atherosclerosis is noted of the carotid arterie s. Prevertebral soft tissue appears within normal limits. The C1-C2 articulation is unremarkable. IMPRESSION: 1. There is no acute fracture or dislocation evident in the cervical spine. Diffuse osseous demineral ization and multilevel degenerative change is seen. 2. No acute intracranial hemorrhage, mass effect, or midline shift is seen. 3. Right supraorbital scalp hematoma measuring 6 mm in greatest thickness. Globes symmetric and maint ain a normal rounded morphology. No post septal fat stranding. Orbits and lamina papyracea appear int act.
[2017-11-21 15:21] LABS: Creatine Kinase MB 0.7 ng/mL (0.0-2.4); Troponin I <0.012 ng/mL (0.000-0.034)
[2017-11-21] MEDS ORDERED: LORazepam 2 MG/ML INJ IV STA ×4 (15:26→16:26)
--- NOTE | 2017-11-21 15:32 | XR ---
EXAMINATION TYPE: XR pelvis AP view DATE OF EXAM: 11/21/2017 CLINICAL HISTORY: Trauma injury with pain. TECHNIQUE: A single AP view of the pelvis is obtained. COMPARISON: Pelvic x-ray October 08, 2017. FINDINGS: Osseous structures remain demineralized. There is no acute fracture/dislocation clearly ev ident in the pelvis. The sacroiliac joints appear symmetric and unremarkable. Moderate joint space l oss right hip is redemonstrated. Severe joint space loss left hip is again seen. Vascular calcificati on bilateral groin region and lower abdomen is redemonstrated. IMPRESSION: There is no acute fracture or dislocation in the pelvis. No significant change from prio r.
--- NOTE | 2017-11-21 15:34 | XR ---
EXAMINATION TYPE: XR chest 1V portable DATE OF EXAM: 11/21/2017 COMPARISON: 10/08/2017 HISTORY: Trauma and altered mental status. TECHNIQUE: Single frontal view of the chest is obtained. FINDINGS: New right basilar airspace disease is seen. Considering the patient's altered mental statu s aspiration pneumonia is possible. Left basilar patchy opacity in the retrocardiac airspace is also identified. Findings are superimposed upon chronic interstitial prominence, pulmonary hyperinflation of COPD, biapical pleural thickening, and redemonstration of pericardial calcifications possibly from prior pericarditis. There is diffuse osseous demineralization identified. No sizable pneumothorax. IMPRESSION: New bibasilar airspace disease, right greater than left. Considering altered mental stat us of the patient aspiration pneumonia could be considered. Numerous chronic changes as described abo ve.
[2017-11-21] MEDS ORDERED: levETIRAcetam IV 1,000 MG in SALINE 1 100ML.BAG IVPB STA ×2 (15:38→16:33)
[2017-11-21] MEDS ORDERED: NALOXONE 0.4 MG/ML 1 ML VIAL IV PRN (17:23)
[2017-11-21] MEDS ORDERED: LORazepam 2 MG/ML INJ IV PRN (17:28)
[2017-11-21] MEDS: SODIUM CHLORIDE 0.9% 1,000 ML IV SCH (18:55)
[2017-11-21 18:56] LABS: Glucose,Whole Blood 115 mg/dL (75-99)
[2017-11-21] MEDS: PANTOPRAZOLE 40 MG/10 ML VIAL IVP SCH (20:16)
[2017-11-21] MEDS: DORZOLAMIDE-TIMOLOL 2-0.5% DROPS 10 ML BTL BOTH EYES SCH (20:16)
[2017-11-21] MEDS: LATANOPROST 0.005% OPHTH DROPS 2.5 ML BTL BOTH EYES SCH (20:16)
[2017-11-21] MEDS: levETIRAcetam IV 750 MG in SODIUM CHLORIDE 0.9% 100 ML IVPB SCH (22:29)
--- NOTE | 2017-11-21 22:35 | CT ---
EXAMINATION TYPE: CT brain wo con DATE OF EXAM: 11/21/2017 COMPARISON: Today HISTORY: Altered mental status. CT DLP: 950.5 mGycm Automated exposure control for dose reduction was used. FINDINGS: There is periorbital soft tissue swelling on the right side. There is right frontal scalp soft tissue swelling. There is cerebral cortical atrophy. There is no mass effect nor midline shift. There is no evidence o f intracranial hemorrhage. The calvarium is intact. There is mild white matter hypodensity around the lateral ventricles. IMPRESSION: CEREBRAL ATROPHY AND CHRONIC SMALL VESSEL ISCHEMIA. NO CHANGE COMPARED TO EXAM EARLIER TODAY AT 3:00 PM. THERE IS INCREASED RIGHT PERIORBITAL AND RIGHT FRONTAL SOFT TISSUE SWELLING COMPARED TO LAST EXAM .
[2017-11-21] MEDS ORDERED: hydrALAZINE HCL 20 MG/ML 1 ML VIAL IVP PRN (23:40)
[2017-11-22 05:06] LABS: Basophils % (A) 0 %; Eosinophils % (A) 0 %; HCT 40.8 % (34.0-46.0); HGB 12.6 gm/dL (11.4-16.0); Lymphocytes # (A) 1.2 k/uL (1.0-4.8); Lymphocytes % (A) 11 %; MCH 28.2 pg (25.0-35.0); Mean Platelet Volume 8.1; Monocytes # (A) 0.7 k/uL (0-1.0); Monocytes % (A) 7 %; Neutrophils # (A) 8.7 k/uL (1.3-7.7); Neutrophils % (A) 80 %; Platelet Count 132 k/uL (150-450); RBC 4.48 m/uL (3.80-5.40); RDW 13.2 % (11.5-15.5); WBC 10.8 k/uL (3.8-10.6)
[2017-11-22 05:15] LABS: Anion Gap 11 mmol/L; Blood Urea Nitrogen 19 mg/dL (7-17); Calcium 8.5 mg/dL (8.4-10.2); Carbon Dioxide 24 mmol/L (22-30); Chloride 101 mmol/L (98-107); Glucose 115 mg/dL (74-99); Magnesium 1.7 mg/dL (1.6-2.3); Phosphorus 2.7 mg/dL (2.5-4.5); Potassium 3.5 mmol/L (3.5-5.1); Sodium 136 mmol/L (137-145)
[2017-11-22 05:20] LABS: INR 1.1 (<1.2); Partial Thromboplastin Time 26.4 sec (22.0-30.0)
[2017-11-22] MEDS ORDERED: Potassium Replacement Protocol 1 EACH MISC MISCELLANE PRN (05:54)
[2017-11-22] MEDS ORDERED: Magnesium Replacement Protocol 1 EACH MISC MISCELLANE PRN (05:55)
[2017-11-22] MEDS: POTASSIUM CHLORIDE 10 MEQ in WATER FOR INJECTION 1 100ML.BAG IVPB SCH ×4 (06:07→23:11)
[2017-11-22] MEDS: MAGNESIUM SULFATE-D5W PMX 1 GM in DEXTROSE/WATER 1 100ML.BAG IVPB SCH ×2 (06:07→07:03)
[2017-11-22] MEDS: SODIUM CHLORIDE 0.9% 1,000 ML IV SCH ×3 (06:08→23:12)
[2017-11-22] MEDS: DORZOLAMIDE-TIMOLOL 2-0.5% DROPS 10 ML BTL BOTH EYES SCH ×2 (08:31→20:23)
[2017-11-22] MEDS: PANTOPRAZOLE 40 MG/10 ML VIAL IVP SCH (08:32)
[2017-11-22] MEDS: levETIRAcetam IV 750 MG in SODIUM CHLORIDE 0.9% 100 ML IVPB SCH (08:32)
--- NOTE | 2017-11-22 09:21 | XR ---
EXAMINATION TYPE: XR chest 1V portable DATE OF EXAM: 11/22/2017 COMPARISON: Prior chest x-ray 11/21/2017 HISTORY: Abnormal chest x-ray, aspiration pneumonia TECHNIQUE: frontal view of the chest is obtained on 2 images. FINDINGS: Abnormal increased attenuation noted in the right lung base, there is blunting of the cost ophrenic angle. Apical calcification is present bilaterally as on prior exam, the heart remains enlar ged. There is likely an underlying scoliosis. No evident pneumothorax. Pulmonary vascularity and esther not significantly changed. There are overlying cardiac leads. Carotid artery calcifications noted. IMPRESSION: Findings may represent right lower lobe pneumonia and associated parapneumonic effusion. Cardiomegaly. Additional findings above. Follow-up recommended.
[2017-11-22] MEDS ORDERED: DEXAMETHASONE SOD PHOSPHATE 4 MG/ML 1 ML VIAL IV PRN (10:06)
[2017-11-22] MEDS ORDERED: SODIUM CHLORIDE 0.9% 1,000 ML IV ONE (10:11)
[2017-11-22] MEDS: PIPERACILLIN-TAZOBACTAM 3.375 GM in DEXTROSE/WATER 1 50ML.BAG IVPB SCH ×2 (11:08→16:19)
--- NOTE | 2017-11-22 11:09 | P.CNPUL ---
History of Present Illness Consult date: 11/22/17 Requesting physician: Norm Magallanes Reason for consult: other (Status epilepticus) Chief complaint: Altered mental status History of present illness: This is an 89-year-old female with known history of chronic atrial fibrillation , hypertension, hyperlipidemia, patient was in the hospital about a month ago, and she was admitted at the time with symptoms of falling, and possibly a urinary tract infection patient lives at an assisted living facility, she was found on the floor unresponsive with face down. EMS arrived, and the patient was noted to have protruding tongue, cyanosis, shallow breathing, and unresponsive. She was later noted to have seizure-like activity with tonic clonic like activity, lasting about a minute. Versed was given by EMS, the seizure-like activity responded, but the patient remained unresponsive. Patient was also noted to have some ecchymosis in the right periorbital area. Brought into the ER, workup in the ER included a CT of the head which showed no evidence of bleeding and no evidence of infarct. In the ER she was noted to have seizure-like activity again and she was given Ativan followed by Mika. The seizure activity. Sided, but the patient remained unresponsive except to deep painful stimuli. Patient was also noted to have a significantly swollen tongue, but she was able to protect her airways. Patient was admitted to the ICU, apparently she has a DO NOT RESUSCITATE CODE STATUS, and I was asked to see her on consultation. Patient is yet to be seen by neurology on consultation , and they were made aware of her condition. At night she was noted to have unequal pupils, and repeat CT of the brain was done. It did show cerebral atrophy no change compared to the previous CT that was done earlier, there was slight increase in the right periorbital soft tissue swelling noted. Blood pressure seems to be marginal, her mean is in the low 50s, hence I recommended more fluids to be given to the patient today. Urine output is extremely marginal about 10 mL per hour. Patient will likely improve with fluid boluses and increase maintenance IV fluid to 150 mL per hour. Today upon my evaluation , the patient remains unresponsive except withdrawal to deep painful stimuli, tries to open eyes, again upon deep painful stimuli, but does not follow any instructions, pupils are both equally reactive to light. Review of Systems ROS unobtainable: due to mental status Past Medical History Past Medical History: Atrial Fibrillation, CVA/TIA, Eye Disorder, Hearing Disorder / Deafness, Hyperlipidemia, Hypertension, Pneumonia Additional Past Medical History / Comment(s): Patient says she had a "questionable stroke"-no deficits, [place] bilaterally, bilateral eyes glaucoma, kyphoscoliosis. History of Any Multi-Drug Resistant Organisms: None Reported Past Surgical History: Adenoidectomy, Appendectomy, Cholecystectomy, Tonsillectomy Additional Past Surgical History / Comment(s): colonoscopy Past Anesthesia/Blood Transfusion Reactions: No Reported Reaction Past Psychological History: No Psychological Hx Reported Additional Psychological History / Comment(s): Pt resides at [facility]. She uses a walker to ambulate. She has a BSC. She no longer drives, she gets to [employer] by using [employer] bus. She has her meals served to her. She manages her own medications. Smoking Status: Never smoker Past Alcohol Use History: Occasional Additional Past Alcohol Use History / Comment(s): Patient is a lifelong nonsmoker, no illicit drug use, no alcohol use. She currently resides at [facility]. She uses a walker for ambulation. Past Drug Use History: None Reported - Past Family History Sister(s) Additional Family Medical History / Comment(s): Brain tumor- in her 50's. Mother Family Medical History: No Reported History Additional Family Medical History / Comment(s): Mother was healthy and lived to be 86yrs old. She from heart problems related to rheumatic fever Father Family Medical History: CVA/TIA Additional Family Medical History / Comment(s): Father from a CVA at the age of 70yrs. Brother(s) Additional Family Medical History / Comment(s): Patient has 1 brother with no major medical problems. Daughter(s) Additional Family Medical History / Comment(s): Patient has 5 children: 3 sons and 2 daughters with no major medical problems. Medications and Allergies Home Medications Medication Instructions Recorded Confirmed Type Cholecalciferol [Vitamin D3] 2,000 unit PO DAILY 03/23/15 11/21/17 History Ubidecarenone [Co Q-10] 100 mg PO DAILY 03/23/15 11/21/17 History Aspirin 81 mg PO HS 07/10/16 11/21/17 History Latanoprost Ophth [Xalatan 0.005%] 1 drop BOTH EYES HS 07/10/16 11/21/17 History Apixaban [Eliquis] 2.5 mg PO BID 09/06/16 11/21/17 History Calcium Carbonate [Calcium] 1,200 mg PO DAILY 09/06/16 11/21/17 History Digoxin [Digitek] 125 mcg PO DAILY 09/06/16 11/21/17 History Diltiazem HCl 30 mg PO TID 05/18/17 11/21/17 History Simvastatin [Zocor] 10 mg PO HS 05/18/17 11/21/17 History Dorzolamide-Timolol 2%/0.5% 1 drop BOTH EYES BID 11/21/17 11/21/17 History [dorzolamide-Timolol 2%/0.5%] Allergies Allergy/AdvReac Type Severity Reaction Status Date / Time chocolate flavor Allergy Unknown Verified 11/21/17 15:53 Physical Exam Vitals: Vital Signs Temp Pulse Resp BP Pulse Ox 11/22/17 10:00 91 21 86/43 99 11/22/17 09:00 91 18 130/62 99 11/22/17 08:52 98 11/22/17 08:00 98.2 F 119 H 22 98/44 99 11/22/17 07:00 109 H 20 115/50 99 11/22/17 06:30 115 H 20 115/63 99 11/22/17 06:00 119 H 21 106/55 99 11/22/17 05:30 119 H 17 112/47 99 11/22/17 05:00 127 H 19 119/49 99 11/22/17 04:30 116 H 21 119/65 99 11/22/17 04:00 97.8 F 129 H 21 106/55 98 11/22/17 03:30 121 H 30 H 134/59 99 11/22/17 03:00 116 H 21 123/60 99 11/22/17 02:30 109 H 37 H 135/62 98 11/22/17 02:00 112 H 17 115/66 98 11/22/17 01:30 121 H 25 H 117/60 97 11/22/17 01:00 120 H 27 H 110/41 97 11/22/17 00:30 116 H 22 122/65 97 11/22/17 00:00 97.8 F 108 H 21 170/96 100 05/17/18 23:30 124 H 23 185/101 100 11/21/17 23:00 127 H 24 183/83 100 11/21/17 22:30 107 H 25 H 171/85 100 11/21/17 21:30 106 H 21 154/75 100 11/21/17 21:00 101 H 13 168/81 100 11/21/17 20:30 109 H 20 160/72 100 11/21/17 20:00 97.9 F 102 H 18 167/83 100 11/21/17 19:30 100 18 160/77 100 11/21/17 19:27 99 11/21/17 19:05 108 H 19 154/73 100 11/21/17 18:50 98.3 F 104 H 22 164/89 99 11/21/17 17:37 117 H 20 129/73 100 11/21/17 16:28 111 H 18 129/73 100 11/21/17 16:20 116 H 20 99 11/21/17 16:05 120 H 18 224/107 95 11/21/17 15:26 165 H 16 173/107 99 11/21/17 14:59 109 H 16 109/59 97 11/21/17 14:21 97.5 F L 103 H 16 119/63 98 Intake and Output 11/21/17 11/22/17 11/22/17 22:59 06:59 14:59 Intake Total 879 993 4345 Output Total 1105 670 85 Balance -694 646 8250 Intake: IV 809 191 2913 Magnesium Sulfate-D5w Pmx 100 100 1 gm In Dextrose/Water 1 100ml.bag @ 100 mls/hr IVPB Q1H [facility] Rx#: [id number] Potassium Chloride 10 meq 100 100 In Water For Injection 1 100ml.bag @ 100 mls/hr IVPB Q1H [facility] Rx#: [id number] Sodium Chloride 0.9% 1, 400 700 400 000 ml @ 100 mls/hr IV . Q10H [facility] Rx#:[id number] Sodium Chloride 0.9% 1, 1000 000 ml @ 999 mls/hr IV . Q1H1M [facility] Rx#:[id number] levETIRAcetam IV 750 mg 100 100 In Sodium Chloride 0.9% 100 ml @ 400 mls/hr IVPB Q12HR [facility] Rx#:[id number] Output: Urine 1105 670 85 Other: Voiding Method Indwelling Catheter Indwelling Catheter Indwelling Catheter Weight 45.9 kg 52 kg Physical exam revealed an 89-year-old female obtunded, unresponsive to verbal stimuli, withdraws to deep painful stimuli, in no form of respiratory distress. Head exam: Evidence of periorbital ecchymosis and hematoma noted on the right side.) Eye exam: PERRLA, EOMI. Periorbital hematoma noted. ENT exam: Dry mucous membranes. Tongue is swollen and edematous. Neck exam: Supple no neck masses no stridor. Respiratory exam: Evidence of kyphoscoliosis, diminished breath sounds at the bases, no crackles or rhonchi or wheezes.) Cardiovascular Exam: Irregular irregular rhythm, no S3 gallop, no murmur. GI/Abdominal exam: Soft, nontender, no megaly, no rebound, positive bowel sounds. Extremities exam: No clubbing, no edema, no cyanosis. Back exam: Evidence of kyphoscoliosis otherwise unremarkable. Neurological exam: Unresponsive, withdraws only to painful stimuli, Psychiatric exam: Cannot be assessed Skin exam: Relatively unremarkable except for the periorbital ecchymosis noted on the right side around the right eye. Results - Laboratory Findings CBC and BMP: 11/22/17 04:44 11/22/17 04:44 PT/INR, D-dimer PT 11.0 sec (9.0-12.0) 11/22/17 04:44 INR 1.1 (<1.2) 11/22/17 04:44 Abnormal lab findings: Abnormal Labs 11/21/17 11/21/17 11/21/17 14:20 14:38 14:48 WBC Plt Count Neutrophils # Sodium Chloride 96 L BUN 28 H Creatinine Glucose 165 H POC Glucose (mg/dL) 150 H Urine Protein 1+ H Urine Blood Trace H Urine Mucus Rare H 11/21/17 11/22/17 11/22/17 18:54 04:44 04:44 WBC 10.8 H Plt Count 132 L Neutrophils # 8.7 H Sodium 136 L Chloride BUN 19 H Creatinine 0.40 L Glucose 115 H POC Glucose (mg/dL) 115 H Urine Protein Urine Blood Urine Mucus - Diagnostic Findings Chest x-ray: image reviewed (Poor quality chest x-ray however possibility of right lower lobe atelectasis or infiltrate and right pleural effusion is not entirely ruled out.) Additional studies: All the radiographic studies done in the ER and the CT of the brain where reviewed. And made aware of the reading of those studies. Assessment and Plan Assessment: Impression: 1 acute status epilepticus 2 post ictal mental status change 3 possible aspiration pneumonia 4 chronic atrial fibrillation 5 right periorbital ecchymosis and hematoma secondary to fall 6 tongue swelling secondary to seizure and trauma/biting of the tongue 7 multiple comorbidities including previous CVA, TIA, hearing disorder, hypertension, hyperlipidemia and glaucoma, kyphoscoliosis. 8 hypotension and oliguria likely secondary to dehydration, hence the patient will be given fluid boluses, we will monitor her renal status closely, no evidence of acute kidney injury at this point yet. Recommendation: Patient will be closely monitored in the intensive care unit, continue Keppra, continue seizure precautions, neurology is yet to see on consultation, started the patient on Decadron for the tongue swelling, started empiric antibiotics in the form of Zosyn for possible aspiration, GI prophylaxis , Venodyne boots for DVT prophylaxis, we'll continue to closely follow and monitor. Time with Patient: Greater than 30
[2017-11-22] MEDS: INSULIN ASPART 100 UNIT/ML 1 ML 10 ML VIAL SQ SCH ×2 (11:56→18:53)
[2017-11-22] MEDS: DEXAMETHASONE SOD PHOSPHATE 4 MG/ML 1 ML VIAL IV SCH ×2 (11:57→18:53)
[2017-11-22 11:59] LABS: Glucose,Whole Blood 107 mg/dL (75-99)
[2017-11-22] MEDS ORDERED: METOPROLOL TARTRATE 5 MG/5 ML VIAL IVP PRN (14:11)
[2017-11-22] MEDS ORDERED: levETIRAcetam IV 500 MG in SODIUM CHLORIDE 0.9% 100 ML IVPB STA (14:15)
--- NOTE | 2017-11-22 14:18 | P.HPIM ---
History of Present Illness H&P Date: 11/22/17 Chief Complaint: mental status, seizures This is 89 years old female patient of Dr. Hernandez with past medical history of chronic atrial fibrillation, kyphoscoliosis, prior TIA, hypertension , hyperlipidemia, who was last admitted in October 2017 for right-sided pneumonia and increase troponin that was likely secondary to increased demand. Patient is meant admitted to [facility] after found unresponsive at home with her face down. EMS was called and reported that patient was cyanotic had shallow breathing but was unresponsive. She did have a seizure-like activity with tonic -clonic like activity lasting about a minute followed by Versed given by the EMS. Patient had multiple episodes of seizure in the ER where she did get multiple doses of Ativan and was loaded on Keppra. CT head showed no evidence of hemorrhage or infarct. But periorbital hematoma on the right was seen. Patient was evaluated at bedside. She is maintaining her oxygen but is hyperventilating. Patient is confused and keeps her eyes closed and does not respond to any questions. She does move her extremities spontaneously and to pain stimuli. Patient was noted to have unequal pupils in the night and a repeat CT scan was done which suggested cerebral trophy but no change compared to previous CT with increase in the right periorbital soft tissue swelling. Vital signs are stable with the readings in the low 86/43 at 10 AM which improved to 104/55 with fluids. Patient is tachycardic to 107 a regular saturating well at 2 L of oxygen. Labs suggestive leukocyte of 10.8, sodium 136 , creatinine 0.4, urine with no sign of infection was stopped urine drug screen negative digoxin levels are normal, CK levels are normal alcohol levels are normal. Continue Keppra 1000 IV twice a day. Seizure precautions to be taken. Fall precautions. Continue fluids 100 mL/h for possible dehydration. MRI ordered. EEG ordered. Neurology recommendations pending. Review of Systems ROS unobtainable: due to mental status Past Medical History Past Medical History: Atrial Fibrillation, CVA/TIA, Eye Disorder, Hearing Disorder / Deafness, Hyperlipidemia, Hypertension, Pneumonia Additional Past Medical History / Comment(s): Patient says she had a "questionable stroke"-no deficits, [place] bilaterally, bilateral eyes glaucoma, kyphoscoliosis. History of Any Multi-Drug Resistant Organisms: None Reported Past Surgical History: Adenoidectomy, Appendectomy, Cholecystectomy, Tonsillectomy Additional Past Surgical History / Comment(s): colonoscopy Past Anesthesia/Blood Transfusion Reactions: No Reported Reaction Past Psychological History: No Psychological Hx Reported Additional Psychological History / Comment(s): Pt resides at [facility]. She uses a walker to ambulate. She has a BSC. She no longer drives, she gets to appts by using [employer] bus. She has her meals served to her. She manages her own medications. Smoking Status: Never smoker Past Alcohol Use History: Occasional Additional Past Alcohol Use History / Comment(s): Patient is a lifelong nonsmoker, no illicit drug use, no alcohol use. She currently resides at [facility]. She uses a walker for ambulation. Past Drug Use History: None Reported - Past Family History Sister(s) Additional Family Medical History / Comment(s): Brain tumor- in her 50's. Mother Family Medical History: No Reported History Additional Family Medical History / Comment(s): Mother was healthy and lived to be 86yrs old. She from heart problems related to rheumatic fever Father Family Medical History: CVA/TIA Additional Family Medical History / Comment(s): Father from a CVA at the age of 70yrs. Brother(s) Additional Family Medical History / Comment(s): Patient has 1 brother with no major medical problems. Daughter(s) Additional Family Medical History / Comment(s): Patient has 5 children: 3 sons and 2 daughters with no major medical problems. Medications and Allergies Home Medications Medication Instructions Recorded Confirmed Type Cholecalciferol [Vitamin D3] 2,000 unit PO DAILY 03/23/15 11/21/17 History Ubidecarenone [Co Q-10] 100 mg PO DAILY 03/23/15 11/21/17 History Aspirin 81 mg PO HS 07/10/16 11/21/17 History Latanoprost Ophth [Xalatan 0.005%] 1 drop BOTH EYES HS 07/10/16 11/21/17 History Apixaban [Eliquis] 2.5 mg PO BID 09/06/16 11/21/17 History Calcium Carbonate [Calcium] 1,200 mg PO DAILY 09/06/16 11/21/17 History Digoxin [Digitek] 125 mcg PO DAILY 09/06/16 11/21/17 History Diltiazem HCl 30 mg PO TID 05/18/17 11/21/17 History Simvastatin [Zocor] 10 mg PO HS 05/18/17 11/21/17 History Dorzolamide-Timolol 2%/0.5% 1 drop BOTH EYES BID 11/21/17 11/21/17 History [dorzolamide-Timolol 2%/0.5%] Allergies Allergy/AdvReac Type Severity Reaction Status Date / Time chocolate flavor Allergy Unknown Verified 11/21/17 15:53 Physical Exam Vitals: Vital Signs Temp Pulse Resp BP Pulse Ox 11/22/17 11:00 107 H 21 104/55 100 11/22/17 10:00 91 21 86/43 99 11/22/17 09:00 91 18 130/62 99 11/22/17 08:52 98 11/22/17 08:00 98.2 F 119 H 22 98/44 99 11/22/17 07:00 109 H 20 115/50 99 11/22/17 06:30 115 H 20 115/63 99 11/22/17 06:00 119 H 21 106/55 99 11/22/17 05:30 119 H 17 112/47 99 11/22/17 05:00 127 H 19 119/49 99 11/22/17 04:30 116 H 21 119/65 99 11/22/17 04:00 97.8 F 129 H 21 106/55 98 11/22/17 03:30 121 H 30 H 134/59 99 11/22/17 03:00 116 H 21 123/60 99 11/22/17 02:30 109 H 37 H 135/62 98 11/22/17 02:00 112 H 17 115/66 98 11/22/17 01:30 121 H 25 H 117/60 97 11/22/17 01:00 120 H 27 H 110/41 97 11/22/17 00:30 116 H 22 122/65 97 11/22/17 00:00 97.8 F 108 H 21 170/96 100 11/21/17 23:30 124 H 23 185/101 100 11/21/17 23:00 127 H 24 183/83 100 11/21/17 22:30 107 H 25 H 171/85 100 11/21/17 21:30 106 H 21 154/75 100 11/21/17 21:00 101 H 13 168/81 100 11/21/17 20:30 109 H 20 160/72 100 11/21/17 20:00 97.9 F 102 H 18 167/83 100 11/21/17 19:30 100 18 160/77 100 11/21/17 19:27 99 11/21/17 19:05 108 H 19 154/73 100 11/21/17 18:50 98.3 F 104 H 22 164/89 99 11/21/17 17:37 117 H 20 129/73 100 11/21/17 16:28 111 H 18 129/73 100 11/21/17 16:20 116 H 20 99 11/21/17 16:05 120 H 18 224/107 95 11/21/17 15:26 165 H 16 173/107 99 11/21/17 14:59 109 H 16 109/59 97 11/21/17 14:21 97.5 F L 103 H 16 119/63 98 Intake and Output 11/21/17 11/22/17 11/22/17 22:59 06:59 14:59 Intake Total 895 224 4312.5 Output Total 1105 670 95 Balance -674 303 5343.5 Intake: IV 805 029 5573.5 Magnesium Sulfate-D5w Pmx 100 100 1 gm In Dextrose/Water 1 100ml.bag @ 100 mls/hr IVPB Q1H [facility] Rx#: [id number] Piperacillin-Tazobactam 3 12.5 .375 gm In Dextrose/Water 1 50ml.bag @ 12.5 mls/hr IVPB Q8HR [facility] Rx#: [id number] Potassium Chloride 10 meq 100 100 In Water For Injection 1 100ml.bag @ 100 mls/hr IVPB Q1H [facility] Rx#: [id number] Sodium Chloride 0.9% 1, 400 700 500 000 ml @ 100 mls/hr IV . Q10H [facility] Rx#:[id number] Sodium Chloride 0.9% 1, 1000 000 ml @ 999 mls/hr IV . Q1H1M [facility] Rx#:[id number] levETIRAcetam IV 750 mg 100 100 In Sodium Chloride 0.9% 100 ml @ 400 mls/hr IVPB Q12HR [facility] Rx#:[id number] Output: Urine 1105 670 95 Other: Voiding Method Indwelling Catheter Indwelling Catheter Indwelling Catheter Weight 45.9 kg 52 kg - Constitutional General appearance: Altered, does not respond to verbal command or open eyes spontaneously. Patient is moving all her extremities spontaneously and does withdraw to painful stimuli. - EENT Eyes: anicteric sclerae, PERRLA, 4 mm right slightly larger than the left normal appearance, periorbital ecchymosis on the right with underlying hematoma ENT: Dry mucous membranes. Tongue is swollen, erythematous secondary to tongue bite. Posterior pharynx could not be seen due to the swelling of the tongue - Neck Neck: no lymphadenopathy, no rigidity, no stridor, no thyromegaly - Respiratory Respiratory: bilateral: CTA, negative: diminished, dullness, rales, rhonchi - Cardiovascular Rhythm: Irregularly irregular Heart sounds: normal: S1, S2 Abnormal Heart Sounds: no systolic murmur, no diastolic murmur, no rub, no S3 Gallop, no S4 Gallop, no click, no other - Gastrointestinal General gastrointestinal: normal bowel sounds, soft, nontender - Integumentary Integumentary: Bruise over the pedicle orbital area on the right - Neurologic Neurologic: Unresponsive unable to assess patient's motor or sensory dysfunction. He was a equally and reactive - Musculoskeletal Musculoskeletal: Spontaneously moving all her extremities - Psychiatric Psychiatric: Could not be assessed Results CBC & Chem 7: 11/22/17 04:44 11/22/17 04:44 Labs: Abnormal Lab Results - Last 24 Hours (Table) 11/21/17 11/21/17 11/21/17 Range/Units 14:20 14:38 14:48 WBC (3.8-10.6) k/uL Plt Count (150-450) k/uL Neutrophils # (1.3-7.7) k/uL Sodium (137-145) mmol/L Chloride 96 L (98-107) mmol/L BUN 28 H (7-17) mg/dL Creatinine (0.52-1.04) mg/dL Glucose 165 H (74-99) mg/dL POC Glucose (mg/dL) 150 H (75-99) mg/dL Urine Protein 1+ H (Negative) Urine Blood Trace H (Negative) Urine Mucus Rare H (None) /hpf 11/21/17 11/22/17 11/22/17 Range/Units 18:54 04:44 04:44 WBC 10.8 H (3.8-10.6) k/uL Plt Count 132 L (150-450) k/uL Neutrophils # 8.7 H (1.3-7.7) k/uL Sodium 136 L (137-145) mmol/L Chloride (98-107) mmol/L BUN 19 H (7-17) mg/dL Creatinine 0.40 L (0.52-1.04) mg/dL Glucose 115 H (74-99) mg/dL POC Glucose (mg/dL) 115 H (75-99) mg/dL Urine Protein (Negative) Urine Blood (Negative) Urine Mucus (None) /hpf 11/22/17 Range/Units 11:56 WBC (3.8-10.6) k/uL Plt Count (150-450) k/uL Neutrophils # (1.3-7.7) k/uL Sodium (137-145) mmol/L Chloride (98-107) mmol/L BUN (7-17) mg/dL Creatinine (0.52-1.04) mg/dL Glucose (74-99) mg/dL POC Glucose (mg/dL) 107 H (75-99) mg/dL Urine Protein (Negative) Urine Blood (Negative) Urine Mucus (None) /hpf Thrombosis Risk Factor Assmnt - DVT/VTE Prophylaxis DVT/VTE Prophylaxis: Mechanical Prophylaxis ordered - Choose All That Apply Any of the Below Risk Factors Present?: Yes Each Factor Represents 1 point: Medical pt on bed rest Other Risk Factors: Yes Each Risk Factor Represents 2 Points: Age 61-74 years Each Risk Factor Represents 3 Points: Age 75 years or older Other congenital or acquired thrombophilia - If yes, enter type in comment: No Thrombosis Risk Factor Assessment Total Risk Factor Score: 6 Thrombosis Risk Factor Assessment Level: High Risk Assessment and Plan Plan: 1. Altered mental status secondary to status epilepticus. Etiology unclear at this pointby chest x-ray does suggest possibility of aspiration pneumonia with parapneumonic effusion on the urine analysis completely clean. No episode of fever to suspect meningitis but is a possibility since no history of seizure disorder present. Computed tomography scan of the brain on admission and repeat scan 12 are later was negative for any acute hemorrhage or bleed. MRI ordered to rule out encephalitis. Continue Zosyn for aspiration pneumonia. Seizure precautions. Fall precaution. Neurology consult placed. EEG ordered. Ativan 2 mg 3 hours for seizures. Continue Keppra 750 mg twice daily 2. Chronic atrial fibrillation. Hold eliquis until stroke ruled out as there is high chance of bleeding in the first 24 hours. Keep patient nothing by mouth for possible aspiration. Continue labetalol 5 mg IV every 6 hours for systolic blood pressure more than 160 3. Hypotension likely secondary to hypoperfusion and dehydration. Continue IV fluids at 100 mL/h as urine output declining monitor I and O 4. Hypertension. Currently hypotensive hold antihypertensive medications 5. Glaucoma. Continue eyedrops. 6. Hyperlipidemia. hold simvastatin as patient is NPO 7 Aspiration pneumonia continue Zosyn 3.35 mg iv q6 hr 8. Right periorbital hematoma with tongue bite secondary to fall / seizure 9. Prior TIA - continue rectal aspirin 300 mg , hold statin as patient is NPO 10. DVT prophylaxis. SCD 11.GI prophylaxis. protonix 40 mg iv daily Disposition patient needs to stay 2-3 midnights in the hospital until symptoms CODE STATUS DO NOT RESUSCITATE
[2017-11-22] MEDS: ASPIRIN 300 MG SUPP RECTAL SCH (14:27)
[2017-11-22] MEDS ORDERED: LACOSAMIDE IV 200 MG in SODIUM CHLORIDE 0.9% 50 ML IVPB ONE (14:30)
--- NOTE | 2017-11-22 17:34 | EEG ---
ELECTROENCEPHALOGRAM REPORT DATE OF SERVICE: 11/22/2017 REASON FOR TESTING: Seizures. CURRENT ANTI-EPILEPTIC MEDICATIONS: Keppra. DESCRIPTION OF THE PROCEDURE: This EEG was performed using a 21-channel digital electroencephalograph, following international 10-20 system. DESCRIPTION OF THE RECORDING: From the beginning of the tracing, and with the patient's eyes closed, the background rhythm was mostly consisting of 6 Hz theta frequency in the posterior occipital leads. Recurrent epileptiform discharges were seen mainly in the left frontal temporal region. Recurrent epileptiform discharges continued to occur during the tracing, mostly involving the left frontal temporal leads. Hyperventilation and photic stimulation were not performed. Near the end of the tracing, more epileptic activity is seen in the same leads mentioned above. INTERPRETATION: This EEG is abnormal due to the presence of recurrent epileptiform discharges, mostly seen in the left frontal temporal region. This is consistent with status epilepticus. Clinical correlation is recommended. [id number] / IJN: [id number] /
--- NOTE | 2017-11-22 17:56 | P.CONS ---
History of Present Illness - Reason for Consult Consult date: 11/22/17 Altered mental status and seizures - Chief Complaint Altered mental status and seizures - History of Present Illness Is an 89-year-old female being evaluated by the neurology service in the ICU at [facility] for altered mental status and seizure activity on EEG. He was admitted to the [facility] after being found unresponsive in her home face down. The patient was cyanotic or shallow breathing and unresponsive. She had some seizure like activity with tonic- clonic movements. She has no history of seizures. She had multiple episodes of seizure activity in the ER and she was given multiple doses of Ativan and loaded with IV Keppra. She continues on IV Keppra 1000 mg every 12 hours. She was found to have seizure activity on her EEG so of Vimpat IV was also added. She has shown no overt seizure activity since then. CT of the head showed no evidence of acute intracranial and abnormalities. It did show periorbital hematoma on the right side. A repeat computed tomography scan was done because of some possible is equal pupils on the right. Again no acute intracranial abnormality was seen. She has been hypotensive at times with blood pressure as low as 86/43. At the time my evaluation she is being taken out of her MRI of the brain. Review of Systems Constitutional: Reports as per HPI Past Medical History Past Medical History: Atrial Fibrillation, CVA/TIA, Eye Disorder, Hearing Disorder / Deafness, Hyperlipidemia, Hypertension, Pneumonia Additional Past Medical History / Comment(s): Patient says she had a "questionable stroke"-no deficits, [place] bilaterally, bilateral eyes glaucoma, kyphoscoliosis. History of Any Multi-Drug Resistant Organisms: None Reported Past Surgical History: Adenoidectomy, Appendectomy, Cholecystectomy, Tonsillectomy Additional Past Surgical History / Comment(s): colonoscopy Past Anesthesia/Blood Transfusion Reactions: No Reported Reaction Past Psychological History: No Psychological Hx Reported Additional Psychological History / Comment(s): Pt resides at [facility]. She uses a walker to ambulate. She has a BSC. She no longer drives, she gets to appts by using [facility] bus. She has her meals served to her. She manages her own medications. Smoking Status: Never smoker Past Alcohol Use History: Occasional Additional Past Alcohol Use History / Comment(s): Patient is a lifelong nonsmoker, no illicit drug use, no alcohol use. She currently resides at [facility]. She uses a walker for ambulation. Past Drug Use History: None Reported - Past Family History Sister(s) Additional Family Medical History / Comment(s): Brain tumor- in her 50's. Mother Family Medical History: No Reported History Additional Family Medical History / Comment(s): Mother was healthy and lived to be 86yrs old. She from heart problems related to rheumatic fever Father Family Medical History: CVA/TIA Additional Family Medical History / Comment(s): Father from a CVA at the age of 70yrs. Brother(s) Additional Family Medical History / Comment(s): Patient has 1 brother with no major medical problems. Daughter(s) Additional Family Medical History / Comment(s): Patient has 5 children: 3 sons and 2 daughters with no major medical problems. Medications and Allergies Home Medications Medication Instructions Recorded Confirmed Type Cholecalciferol [Vitamin D3] 2,000 unit PO DAILY 03/23/15 11/21/17 History Ubidecarenone [Co Q-10] 100 mg PO DAILY 03/23/15 11/21/17 History Aspirin 81 mg PO HS 07/10/16 11/21/17 History Latanoprost Ophth [Xalatan 0.005%] 1 drop BOTH EYES HS 07/10/16 11/21/17 History Apixaban [Eliquis] 2.5 mg PO BID 09/06/16 11/21/17 History Calcium Carbonate [Calcium] 1,200 mg PO DAILY 09/06/16 11/21/17 History Digoxin [Digitek] 125 mcg PO DAILY 09/06/16 11/21/17 History Diltiazem HCl 30 mg PO TID 05/18/17 11/21/17 History Simvastatin [Zocor] 10 mg PO HS 05/18/17 11/21/17 History Dorzolamide-Timolol 2%/0.5% 1 drop BOTH EYES BID 11/21/17 11/21/17 History [dorzolamide-Timolol 2%/0.5%] Allergies Allergy/AdvReac Type Severity Reaction Status Date / Time chocolate flavor Allergy Unknown Verified 11/21/17 15:53 Physical Exam Vitals: Vital Signs Temp Pulse Resp BP Pulse Ox 11/22/17 15:00 100 20 135/74 100 0518/18 14:00 93 15 135/61 99 18 13:00 99 21 119/68 99 18 12:00 98.1 F 93 23 126/71 95 18 11:00 107 H 21 104/55 100 18 10:00 91 21 86/43 99 18 09:00 91 18 130/62 99 18 08:52 98 11/22/17 08:00 98.2 F 119 H 22 98/44 99 11/22/17 07:00 109 H 20 115/50 99 18 06:30 115 H 20 115/63 99 11/22/17 06:00 119 H 21 106/55 99 11/22/17 05:30 119 H 17 112/47 99 11/22/17 05:00 127 H 19 119/49 99 11/22/17 04:30 116 H 21 119/65 99 11/22/17 04:00 97.8 F 129 H 21 106/55 98 18 03:30 121 H 30 H 134/59 99 18 03:00 116 H 21 123/60 99 18 02:30 109 H 37 H 135/62 98 18 02:00 112 H 17 115/66 98 18 01:30 121 H 25 H 117/60 97 18 01:00 120 H 27 H 110/41 97 1818 00:30 116 H 22 122/65 97 18/18 00:00 97.8 F 108 H 21 170/96 100 0517/18 23:30 124 H 23 185/101 100 0517/18 23:00 127 H 24 183/83 100 0517/18 22:30 107 H 25 H 171/85 100 05/17/18 21:30 106 H 21 154/75 100 0517/18 21:00 101 H 13 168/81 100 05/17/18 20:30 109 H 20 160/72 100 05/17/18 20:00 97.9 F 102 H 18 167/83 100 05/17/18 19:30 100 18 160/77 100 05/17/18 19:27 99 05/17/18 19:05 108 H 19 154/73 100 11/21/17 18:50 98.3 F 104 H 22 164/89 99 Intake and Output 11/22/17 11/22/17 11/22/17 06:59 14:59 22:59 Intake Total 900 2150.0 250 Output Total 670 185 45 Balance 230 1965.0 205 Intake: IV 900 2150.0 250 Lacosamide IV 200 mg In 50 Sodium Chloride 0.9% 50 ml @ 100 mls/hr IVPB ONCE ONE Rx#:[id number] Magnesium Sulfate-D5w Pmx 100 100 1 gm In Dextrose/Water 1 100ml.bag @ 100 mls/hr IVPB Q1H [facility] Rx#: [id number] Piperacillin-Tazobactam 3 50.0 .375 gm In Dextrose/Water 1 50ml.bag @ 12.5 mls/hr IVPB Q8HR [facility] Rx#: [id number] Potassium Chloride 10 meq 100 100 In Water For Injection 1 100ml.bag @ 100 mls/hr IVPB Q1H [facility] Rx#: [id number] Sodium Chloride 0.9% 1, 700 800 100 000 ml @ 100 mls/hr IV . Q10H [facility] Rx#:[id number] Sodium Chloride 0.9% 1, 1000 000 ml @ 999 mls/hr IV . Q1H1M ONE Rx#:[id number] levETIRAcetam IV 1,000 mg 100 In Saline 1 100ml.bag @ 400 mls/hr IVPB ONCE ST[facility] Rx#:[id number] levETIRAcetam IV 750 mg 100 In Sodium Chloride 0.9% 100 ml @ 400 mls/hr IVPB Q12HR [facility] Rx#:[id number] Output: Urine 670 185 45 Other: Voiding Method Indwelling Catheter Indwelling Catheter Indwelling Catheter Weight 52 kg - Constitutional General appearance: no acute distress - EENT Eyes: no abnormal pupil, PERRLA - Neck Neck: no rigidity - Respiratory Respiratory: negative: prolonged expiration, prolonged inspiration - Cardiovascular Rhythm: irregularly irregular - Gastrointestinal General gastrointestinal: no distended, no tenderness - Neurologic The patient is quite obtunded. She does not respond to her name or follow commands. She withdraws to painful stimuli. Toes are downgoing. There is some spontaneous movement and no lateralizing weakness is seen. There is no facial asymmetry. No tremors or seizure-like activities are seen. Results CBC & Chem 7: 11/22/17 04:44 11/22/17 04:44 Labs: Abnormal Lab Results - Last 24 Hours (Table) 11/21/17 11/22/17 11/22/17 Range/Units 18:54 04:44 04:44 WBC 10.8 H (3.8-10.6) k/uL Plt Count 132 L (150-450) k/uL Neutrophils # 8.7 H (1.3-7.7) k/uL Sodium 136 L (137-145) mmol/L BUN 19 H (7-17) mg/dL Creatinine 0.40 L (0.52-1.04) mg/dL Glucose 115 H (74-99) mg/dL POC Glucose (mg/dL) 115 H (75-99) mg/dL Troponin I (0.000-0.034) ng/mL 11/22/17 11/22/17 Range/Units 11:56 15:01 WBC (3.8-10.6) k/uL Plt Count (150-450) k/uL Neutrophils # (1.3-7.7) k/uL Sodium (137-145) mmol/L BUN (7-17) mg/dL Creatinine (0.52-1.04) mg/dL Glucose (74-99) mg/dL POC Glucose (mg/dL) 107 H (75-99) mg/dL Troponin I 0.121 H* (0.000-0.034) ng/mL Assessment and Plan (1) Altered mental status Current Visit: Yes Status: Acute Code(s): R41.82 - ALTERED MENTAL STATUS, UNSPECIFIED SNOMED Code(s): 416798791 (2) Atrial fibrillation Current Visit: Yes Status: Chronic Code(s): I48.91 - UNSPECIFIED ATRIAL FIBRILLATION SNOMED Code(s): 12137329 (3) Hypotension Current Visit: Yes Status: Acute Code(s): I95.9 - HYPOTENSION, UNSPECIFIED SNOMED Code(s): 95510714 (4) Aspiration pneumonia Current Visit: Yes Status: Acute Code(s): J69.0 - PNEUMONITIS DUE TO INHALATION OF FOOD AND VOMIT SNOMED Code(s): 977977290 (5) Status epilepticus Current Visit: Yes Status: Acute Code(s): G40.901 - EPILEPSY, UNSP, NOT INTRACTABLE, WITH STATUS EPILEPTICUS SNOMED Code(s): 055375052 Plan: The patient remains quite obtunded. No overt seizure activity has been witnessed since Keppra 1000 mg IV piggyback every 12 hours and Vimpat 100 mg IV piggyback every 12 hours have been started. She has an order for Ativan 2 mg every 3 hours when necessary for seizures. We will leave that administration to the attending physician. At time my exam she is being taken for an MRI of the brain. Recall that 2 CTs of the brain showed no acute intracranial abnormalities or mass. An EEG has been performed. For now continue treatment of her infectious process. Continue supportive care in the ICU. We'll make further recommendations based on results of her MRI. Patient's prognosis is extremely guarded right now she is a DO NOT RESUSCITATE. Next I have performed a history and physical on the above patient. I have reviewed the above note, and agree.
--- NOTE | 2017-11-22 17:58 | MR ---
EXAMINATION TYPE: MR brain wo/w con DATE OF EXAM: 11/22/2017 COMPARISON: NONE HISTORY: 89-year-old female AMS, stroke, new onset seizure TECHNIQUE: Multiplanar, multisequence images of the brain and brainstem were acquired before and aft er administration of 5 mL IV Gadavist. Diffusion weighted imaging is performed. FINDINGS: No evidence for acute infarction, hemorrhage, mass, mass effect, midline shift, herniation, effacemen t of basal cisterns, or extra-axial fluid collection. There is moderate generalized supratentorial volume loss with secondary mild ventriculomegaly seconda ry to central cerebral atrophy. T2/FLAIR weighted sequences show moderate to severe patchy and confluent white matter changes in both cerebral hemispheres. Major intracranial flow voids are intact. Midline structures demonstrate normal morphology. The craniocervical junction is normal. Post contrast images demonstrate no evidence of pathologic enhancement. Dural venous sinuses are pat ent. The visualized sinuses are clear and the globes are intact. Right frontal, right periorbital, and rig ht premaxillary soft tissue contusions. IMPRESSION: 1. No acute intracranial abnormality seen. 2. Moderate cerebral atrophy. Stable mild ventriculomegaly which is likely on an ex vacuo basis. 3. Moderate to severe patchy and confluent white matter changes likely relating to chronic small vess el ischemic disease. 3. Right periorbital and right facial soft tissue contusion.
[2017-11-22 18:54] LABS: Glucose,Whole Blood 128 mg/dL (75-99)
[2017-11-22 19:04] LABS: Hemoglobin A1C 5.8 % (4.0-6.0)
[2017-11-22] MEDS: levETIRAcetam IV 1,000 MG in SALINE 1 100ML.BAG IVPB SCH (20:23)
[2017-11-22] MEDS: LATANOPROST 0.005% OPHTH DROPS 2.5 ML BTL BOTH EYES SCH (20:23)
[2017-11-22] MEDS: LACOSAMIDE IV 200 MG in SODIUM CHLORIDE 0.9% 50 ML IVPB SCH (21:25)
[2017-11-23 00:38] LABS: Glucose,Whole Blood 117 mg/dL (75-99)
[2017-11-23] MEDS: PIPERACILLIN-TAZOBACTAM 3.375 GM in DEXTROSE/WATER 1 50ML.BAG IVPB SCH ×4 (00:38→23:19)
[2017-11-23] MEDS: INSULIN ASPART 100 UNIT/ML 1 ML 10 ML VIAL SQ SCH ×4 (00:38→17:31)
[2017-11-23] MEDS: DEXAMETHASONE SOD PHOSPHATE 4 MG/ML 1 ML VIAL IV SCH ×5 (00:38→23:19)
[2017-11-23 03:48] LABS: Basophils % (A) 0 %; Eosinophils % (A) 0 %; HCT 42.1 % (34.0-46.0); HGB 13.1 gm/dL (11.4-16.0); Hypochromasia Slight; Lymphocytes % (A) 13 %; MCH 28.9 pg (25.0-35.0); MCHC 31.1 g/dL (31.0-37.0); MCV 92.9 fL (80.0-100.0); Mean Platelet Volume 8.7; Monocytes # (A) 0.3 k/uL (0-1.0); Monocytes % (A) 3 %; Neutrophils # (A) 6.6 k/uL (1.3-7.7); Neutrophils % (A) 83 %; Platelet Count 149 k/uL (150-450); RBC 4.54 m/uL (3.80-5.40); RDW 13.3 % (11.5-15.5); WBC 7.9 k/uL (3.8-10.6)
[2017-11-23 03:55] LABS: INR 1.2 (<1.2); Partial Thromboplastin Time 28.3 sec (22.0-30.0); Prothrombin Time 11.1 sec (9.0-12.0)
[2017-11-23 04:23] LABS: Anion Gap 13 mmol/L; Blood Urea Nitrogen 19 mg/dL (7-17); Calcium 8.1 mg/dL (8.4-10.2); Carbon Dioxide 18 mmol/L (22-30); Chloride 106 mmol/L (98-107); Glucose 118 mg/dL (74-99); Magnesium 2.2 mg/dL (1.6-2.3); Phosphorus 2.7 mg/dL (2.5-4.5); Potassium 4.2 mmol/L (3.5-5.1); Sodium 137 mmol/L (137-145)
[2017-11-23 06:00] LABS: Glucose,Whole Blood 119 mg/dL (75-99)
--- NOTE | 2017-11-23 07:47 | XR ---
EXAMINATION TYPE: XR chest 1V portable DATE OF EXAM: 11/23/2017 COMPARISON: Prior chest x-ray 11/22/2017 HISTORY: Pneumonia TECHNIQUE: Single frontal view of the chest is obtained. FINDINGS: Patient is rotated. Heart is enlarged. Interstitium is increased. Basilar increased densit y obscures the right hemidiaphragm. There is blunting of the left costophrenic angle. No evident pneu mothorax. Dense calcification present at the lung apices. IMPRESSION: Correlate for congestive heart failure or volume overload, pneumonia not excluded.
[2017-11-23] MEDS: levETIRAcetam IV 1,000 MG in SALINE 1 100ML.BAG IVPB SCH ×2 (08:45→20:49)
[2017-11-23] MEDS: PANTOPRAZOLE 40 MG/10 ML VIAL IVP SCH (08:46)
[2017-11-23] MEDS: DORZOLAMIDE-TIMOLOL 2-0.5% DROPS 10 ML BTL BOTH EYES SCH ×2 (08:46→20:49)
[2017-11-23] MEDS: LACOSAMIDE IV 200 MG in SODIUM CHLORIDE 0.9% 50 ML IVPB SCH ×2 (09:31→21:15)
[2017-11-23] MEDS: ASPIRIN 300 MG SUPP RECTAL SCH (09:32)
[2017-11-23] MEDS: SODIUM CHLORIDE 0.9% 1,000 ML IV SCH (09:33)
--- NOTE | 2017-11-23 11:30 | P.PN ---
Subjective Progress Note Date: 11/23/17 Principal diagnosis: Acute status epilepticus This is an 89-year-old female with known history of chronic atrial fibrillation , hypertension, hyperlipidemia, patient was in the hospital about a month ago, and she was admitted at the time with symptoms of falling, and possibly a urinary tract infection patient lives at an assisted living facility, she was found on the floor unresponsive with face down. EMS arrived, and the patient was noted to have protruding tongue, cyanosis, shallow breathing, and unresponsive. She was later noted to have seizure-like activity with tonic clonic like activity, lasting about a minute. Versed was given by EMS, the seizure-like activity responded, but the patient remained unresponsive. Patient was also noted to have some ecchymosis in the right periorbital area. Brought into the ER, workup in the ER included a CT of the head which showed no evidence of bleeding and no evidence of infarct. In the ER she was noted to have seizure-like activity again and she was given Ativan followed by Keppra. The seizure activity. Sided, but the patient remained unresponsive except to deep painful stimuli. Patient was also noted to have a significantly swollen tongue, but she was able to protect her airways. Patient was admitted to the ICU, apparently she has a DO NOT RESUSCITATE CODE STATUS, and I was asked to see her on consultation. Patient is yet to be seen by neurology on consultation , and they were made aware of her condition. At night she was noted to have unequal pupils, and repeat CT of the brain was done. It did show cerebral atrophy no change compared to the previous CT that was done earlier, there was slight increase in the right periorbital soft tissue swelling noted. Blood pressure seems to be marginal, her mean is in the low 50s, hence I recommended more fluids to be given to the patient today. Urine output is extremely marginal about 10 mL per hour. Patient will likely improve with fluid boluses and increase maintenance IV fluid to 150 mL per hour. Today upon my evaluation , the patient remains unresponsive except withdrawal to deep painful stimuli, tries to open eyes, again upon deep painful stimuli, but does not follow any instructions, pupils are both equally reactive to light. Patient was reevaluated today on 11/23/2017, remains in the ICU, she is no different today compared to yesterday. Patient remains on IV Keppra, and Vimpat was added as per neurology. A shunt remains obtunded, opens eyes only to deep painful stimuli, but clearly not neurologically intact. MRI of the brain was nondiagnostic yesterday. CODE STATUS was discussed with family again yesterday, and patient remains DO NOT RESUSCITATE CODE STATUS. No evidence of clear-cut active seizure activities over the last 24 hours since admission, hence I plan to transfer the patient out of the ICU to a medical floor. Labs were all reviewed she has a relatively normal CBC and normal electrolytes are normal renal profile minimally elevated troponin. Objective - Vital Signs Vital signs: Vital Signs Temp 98.2 F 11/23/17 08:00 Pulse 92 11/23/17 09:00 Resp 19 11/23/17 09:00 BP 111/55 11/23/17 09:00 Pulse Ox 100 11/23/17 09:00 Intake & Output 11/22/17 11/23/17 11/23/17 18:59 06:59 18:59 Intake Total 2737.5 1612.5 475.0 Output Total 335 460 110 Balance 2402.5 1152.5 365.0 Weight 55.8 kg Intake: IV 2737.5 1612.5 475.0 Lacosamide IV 200 mg In 50 Sodium Chloride 0.9% 50 ml @ 100 mls/hr IVPB BID [facility] Rx#:[id number] Lacosamide IV 200 mg In 50 50 Sodium Chloride 0.9% 50 ml @ 100 mls/hr IVPB ONCE ONE Rx#:[id number] Magnesium Sulfate-D5w Pmx 100 1 gm In Dextrose/Water 1 100ml.bag @ 100 mls/hr IVPB Q1H [facility] Rx#: [id number] Piperacillin-Tazobactam 3 87.5 62.5 25.0 .375 gm In Dextrose/Water 1 50ml.bag @ 12.5 mls/hr IVPB Q8HR [facility] Rx#: [id number] Potassium Chloride 10 meq 100 200 In Water For Injection 1 100ml.bag @ 100 mls/hr IVPB Q1H [facility] Rx#: [id number] Sodium Chloride 0.9% 1, 1200 1200 300 000 ml @ 100 mls/hr IV . Q10H [facility] Rx#:[id number] Sodium Chloride 0.9% 1, 1000 000 ml @ 999 mls/hr IV . Q1H1M ONE Rx#:[id number] levETIRAcetam IV 1,000 mg 100 100 In Saline 1 100ml.bag @ 400 mls/hr IVPB ONCE STA Rx#:[id number] levETIRAcetam IV 1,000 mg 100 In Saline 1 100ml.bag @ 400 mls/hr IVPB Q12HR [facility] Rx#:[id number] levETIRAcetam IV 750 mg 100 In Sodium Chloride 0.9% 100 ml @ 400 mls/hr IVPB Q12HR [facility] Rx#:[id number] Output: Urine 335 460 110 Other: Voiding Method Indwelling Catheter Indwelling Catheter Indwelling Catheter - Exam Physical exam revealed an 89-year-old female obtunded, unresponsive to verbal stimuli, withdraws to deep painful stimuli, in no form of respiratory distress. Head exam: Evidence of periorbital ecchymosis and hematoma noted on the right side.) Eye exam: PERRLA, EOMI. Periorbital hematoma noted. ENT exam: Dry mucous membranes. Tongue is swollen and edematous. Neck exam: Supple no neck masses no stridor. Respiratory exam: Evidence of kyphoscoliosis, diminished breath sounds at the bases, no crackles or rhonchi or wheezes.) Cardiovascular Exam: Irregular irregular rhythm, no S3 gallop, no murmur. GI/Abdominal exam: Soft, nontender, no megaly, no rebound, positive bowel sounds. Extremities exam: No clubbing, no edema, no cyanosis. Neurological exam: Unresponsive, withdraws only to painful stimuli, Psychiatric exam: Cannot be assessed Skin exam: Relatively unremarkable except for the periorbital ecchymosis noted on the right side around the right eye. - Labs CBC & Chem 7: 11/23/17 03:28 11/23/17 03:28 Labs: Abnormal Lab Results - Last 24 Hours (Table) 11/22/17 11/22/17 11/22/17 Range/Units 11:56 15:01 18:52 Plt Count (150-450) k/uL INR (<1.2) Carbon Dioxide (22-30) mmol/L BUN (7-17) mg/dL Creatinine (0.52-1.04) mg/dL Glucose (74-99) mg/dL POC Glucose (mg/dL) 107 H 128 H (75-99) mg/dL Calcium (8.4-10.2) mg/dL Troponin I 0.121 H* (0.000-0.034) ng/mL 11/22/17 11/23/17 11/23/17 Range/Units 20:12 00:36 03:28 Plt Count 149 L (150-450) k/uL INR (<1.2) Carbon Dioxide (22-30) mmol/L BUN (7-17) mg/dL Creatinine (0.52-1.04) mg/dL Glucose (74-99) mg/dL POC Glucose (mg/dL) 117 H (75-99) mg/dL Calcium (8.4-10.2) mg/dL Troponin I 0.085 H* (0.000-0.034) ng/mL 11/23/17 11/23/17 11/23/17 Range/Units 03:28 03:28 03:28 Plt Count (150-450) k/uL INR 1.2 H (<1.2) Carbon Dioxide 18 L (22-30) mmol/L BUN 19 H (7-17) mg/dL Creatinine 0.40 L (0.52-1.04) mg/dL Glucose 118 H (74-99) mg/dL POC Glucose (mg/dL) (75-99) mg/dL Calcium 8.1 L (8.4-10.2) mg/dL Troponin I 0.064 H* (0.000-0.034) ng/mL 11/23/17 Range/Units 05:59 Plt Count (150-450) k/uL INR (<1.2) Carbon Dioxide (22-30) mmol/L BUN (7-17) mg/dL Creatinine (0.52-1.04) mg/dL Glucose (74-99) mg/dL POC Glucose (mg/dL) 119 H (75-99) mg/dL Calcium (8.4-10.2) mg/dL Troponin I (0.000-0.034) ng/mL Assessment and Plan Assessment: Impression: 1 acute status epilepticus 2 post ictal mental status change 3 possible aspiration pneumonia, empirically on antibiotics in the form of Zosyn. 4 chronic atrial fibrillation 5 right periorbital ecchymosis and hematoma secondary to fall 6 tongue swelling secondary to seizure and trauma/biting of the tongue 7 multiple comorbidities including previous CVA, TIA, hearing disorder, hypertension, hyperlipidemia and glaucoma, kyphoscoliosis. 8 hypotension and oliguria likely secondary to dehydration, hence the patient will be given fluid boluses, we will monitor her renal status closely, no evidence of acute kidney injury at this point yet. Recommendation: Patient can be transferred out of the the intensive care unit, continue seizure meds as per neurology. started the patient on Decadron for the tongue swelling, tongue swelling seems to be improving, hence will cut down the dose of Decadron. started empiric antibiotics in the form of Zosyn for possible aspiration, GI prophylaxis, Venodyne boots for DVT prophylaxis, will transfer today to a medical floor. Time with Patient: Less than 30
[2017-11-23 12:12] LABS: Glucose,Whole Blood 126 mg/dL (75-99)
--- NOTE | 2017-11-23 14:18 | P.PN ---
Subjective Progress Note Date: 11/23/17 Principal diagnosis: Status epilepticus Patient continued to be lethargic at baseline mental status where she is arousable to voice command but does not follow command patient is moving all 4 extremities spontaneously refusing to eat and was transferred out of the intensive care unit based on critical care recommendation Objective - Vital Signs Vital signs: Vital Signs Temp 98.2 F 11/23/17 08:00 Pulse 117 H 11/23/17 12:32 Resp 20 11/23/17 12:32 BP 167/97 11/23/17 12:32 Pulse Ox 98 11/23/17 12:32 Intake & Output 11/22/17 11/23/17 11/23/17 18:59 06:59 18:59 Intake Total 2737.5 1612.5 475.0 Output Total 335 460 110 Balance 2402.5 1152.5 365.0 Weight 55.8 kg Intake: IV 2737.5 1612.5 475.0 Lacosamide IV 200 mg In 50 Sodium Chloride 0.9% 50 ml @ 100 mls/hr IVPB BID [facility] Rx#:[id number] Lacosamide IV 200 mg In 50 50 Sodium Chloride 0.9% 50 ml @ 100 mls/hr IVPB ONCE ONE Rx#:[id number] Magnesium Sulfate-D5w Pmx 100 1 gm In Dextrose/Water 1 100ml.bag @ 100 mls/hr IVPB Q1H [facility] Rx#: [id number] Piperacillin-Tazobactam 3 87.5 62.5 25.0 .375 gm In Dextrose/Water 1 50ml.bag @ 12.5 mls/hr IVPB Q8HR [facility] Rx#: [id number] Potassium Chloride 10 meq 100 200 In Water For Injection 1 100ml.bag @ 100 mls/hr IVPB Q1H [facility] Rx#: [id number] Sodium Chloride 0.9% 1, 1200 1200 300 000 ml @ 100 mls/hr IV . Q10H [facility] Rx#:[id number] Sodium Chloride 0.9% 1, 1000 000 ml @ 999 mls/hr IV . Q1H1M ONE Rx#:[id number] levETIRAcetam IV 1,000 mg 100 100 In Saline 1 100ml.bag @ 400 mls/hr IVPB ONCE STA Rx#:[id number] levETIRAcetam IV 1,000 mg 100 In Saline 1 100ml.bag @ 400 mls/hr IVPB Q12HR [facility] Rx#:[id number] levETIRAcetam IV 750 mg 100 In Sodium Chloride 0.9% 100 ml @ 400 mls/hr IVPB Q12HR [facility] Rx#:[id number] Output: Urine 335 460 110 Other: Voiding Method Indwelling Catheter Indwelling Catheter Indwelling Catheter # Voids 2 - Exam Gen.: in stated age Heart: Normal S1-S2 Lungs: Clear to auscultation bilaterally Abdomen: Soft, no tenderness, positive bowel sounds in all 4 quadrant no guarding or rebound Skin: No new rash Psych: Alert and oriented 0 does not follow command and nonverbal Neuro: No focal deficit Limited exam - Labs CBC & Chem 7: 11/23/17 03:28 11/23/17 03:28 Labs: Abnormal Lab Results - Last 24 Hours (Table) 11/22/17 11/22/17 11/22/17 Range/Units 15:01 18:52 20:12 Plt Count (150-450) k/uL INR (<1.2) Carbon Dioxide (22-30) mmol/L BUN (7-17) mg/dL Creatinine (0.52-1.04) mg/dL Glucose (74-99) mg/dL POC Glucose (mg/dL) 128 H (75-99) mg/dL Calcium (8.4-10.2) mg/dL Troponin I 0.121 H* 0.085 H* (0.000-0.034) ng/mL 11/23/17 11/23/17 11/23/17 Range/Units 00:36 03:28 03:28 Plt Count 149 L (150-450) k/uL INR (<1.2) Carbon Dioxide 18 L (22-30) mmol/L BUN 19 H (7-17) mg/dL Creatinine 0.40 L (0.52-1.04) mg/dL Glucose 118 H (74-99) mg/dL POC Glucose (mg/dL) 117 H (75-99) mg/dL Calcium 8.1 L (8.4-10.2) mg/dL Troponin I (0.000-0.034) ng/mL 11/23/17 11/23/17 11/23/17 Range/Units 03:28 03:28 05:59 Plt Count (150-450) k/uL INR 1.2 H (<1.2) Carbon Dioxide (22-30) mmol/L BUN (7-17) mg/dL Creatinine (0.52-1.04) mg/dL Glucose (74-99) mg/dL POC Glucose (mg/dL) 119 H (75-99) mg/dL Calcium (8.4-10.2) mg/dL Troponin I 0.064 H* (0.000-0.034) ng/mL 11/23/17 Range/Units 12:10 Plt Count (150-450) k/uL INR (<1.2) Carbon Dioxide (22-30) mmol/L BUN (7-17) mg/dL Creatinine (0.52-1.04) mg/dL Glucose (74-99) mg/dL POC Glucose (mg/dL) 126 H (75-99) mg/dL Calcium (8.4-10.2) mg/dL Troponin I (0.000-0.034) ng/mL Assessment and Plan Assessment: 1. Status epilepticus. 2. Acute encephalopathy likely metabolic in nature on the baseline of dementia. 3. Slight elevation in troponin. 4. Aspiration pneumonia. 5. Severe debility and deconditioning. 6. History of CVA. 7. Hypertension. 8. Currently borderline hypotension. 9. Anemia. 10. Protein calorie malnutrition, moderate. 11. Serial debility and deconditioning. We will continue with IV fluid infusion but decrease it to 50 mL/h discussed nursing staff encouraging patient's oral intake the patient is refusing to eat anyway. Patient may benefit from hospice evaluation and we will continue following up with neurology recommendation regarding her seizure repeated EEG this morning showed stable finding from prior EEG and we would continue current recommended seizure medication. Prognosis remained guarded.
--- NOTE | 2017-11-23 16:54 | ECHOF ---
Referral Reason:hypotension MEASUREMENTS -------- HEIGHT: 127.0 cm WEIGHT: 55.8 kg BP: IVSd: 1.2 cm (0.6 - 1.1) LVIDd: 3.7 cm (3.9 - 5.3) LVPWd: 1.3 cm (0.6 - 1.1) IVSs: 1.5 cm LVIDs: 2.9 cm LVPWs: 1.3 cm LA Diam: 5.2 cm (2.7 - 3.8) LAESV Index (A-L): 45.32 ml/m Ao Diam: 2.6 cm (2.0 - 3.7) AV Cusp: 1.4 cm (1.5 - 2.6) LA Diam: 4.9 cm (2.7 - 3.8) MV EXCURSION: 16.594 mm (> 18.000) MV EF SLOPE: 108 mm/s (70 - 150) EPSS: 0.3 cm MV E Anders: 0.76 m/s MV DecT: 157 ms MV A Anders: 0.20 m/s MV E/A Ratio: 3.82 RAP: 5.00 mmHg RVSP: 40.35 mmHg FINDINGS -------- Sinus rhythm. This was a technically adequate study. The left ventricular size is normal. There is mild concentric left ventricular hypertrophy. Overa ll left ventricular systolic function is low-normal with, an EF between 50 - 55 %. The right ventricle is normal in size. The left atrial size is normal. LA is severely dilated >40 ml/m2 The right atrial size is normal. The aortic valve is trileaflet, and appears structurally normal. No aortic stenosis or regurgitation. Mild mitral annular calcification present. Mild mitral regurgitation is present. Mild tricuspid regurgitation present. There is mild pulmonary hypertension. The right ventricular systolic pressure, as measured by Doppler, is 40.35mmHg. Trace/mild (physiologic) pulmonic regurgitation. The aortic root size is normal. There is no pericardial effusion. CONCLUSIONS -------- 1. The left ventricular size is normal. 2. There is mild concentric left ventricular hypertrophy. 3. Overall left ventricular systolic function is low-normal with, an EF between 50 - 55 %. 4. The left atrial size is normal. 5. LA is severely dilated >40 ml/m2 6. The aortic valve is trileaflet, and appears structurally normal. No aortic stenosis or regurgitati on. 7. Mild mitral annular calcification present. 8. Mild mitral regurgitation is present. 9. Mild tricuspid regurgitation present. 10. There is mild pulmonary hypertension. 11. The right ventricular systolic pressure, as measured by Doppler, is 40.35mmHg. 12. Trace/mild (physiologic) pulmonic regurgitation. 13. The aortic root size is normal. 14. There is no pericardial effusion. SOIL CONSERVATION TECHNICIAN: Monae Jorgensen RDCS
[2017-11-23 17:20] LABS: Glucose,Whole Blood 132 mg/dL (75-99)
[2017-11-23] MEDS: LATANOPROST 0.005% OPHTH DROPS 2.5 ML BTL BOTH EYES SCH (20:49)
[2017-11-24 00:16] LABS: Glucose,Whole Blood 125 mg/dL (75-99)
[2017-11-24] MEDS: INSULIN ASPART 100 UNIT/ML 1 ML 10 ML VIAL SQ SCH ×4 (00:22→18:34)
[2017-11-24] MEDS: DEXAMETHASONE SOD PHOSPHATE 4 MG/ML 1 ML VIAL IV SCH ×4 (05:28→23:45)
[2017-11-24] MEDS: SODIUM CHLORIDE 0.9% 1,000 ML IV SCH (05:29)
[2017-11-24 06:16] LABS: Glucose,Whole Blood 130 mg/dL (75-99)
[2017-11-24] MEDS: levETIRAcetam IV 1,000 MG in SALINE 1 100ML.BAG IVPB SCH ×2 (08:25→20:16)
[2017-11-24] MEDS: DORZOLAMIDE-TIMOLOL 2-0.5% DROPS 10 ML BTL BOTH EYES SCH ×2 (08:26→20:18)
[2017-11-24] MEDS: PANTOPRAZOLE 40 MG/10 ML VIAL IVP SCH (08:26)
[2017-11-24] MEDS: LACOSAMIDE IV 200 MG in SODIUM CHLORIDE 0.9% 50 ML IVPB SCH ×2 (08:59→20:33)
--- NOTE | 2017-11-24 09:09 | XR ---
EXAMINATION TYPE: XR chest 1V portable DATE OF EXAM: 11/24/2017 COMPARISON: Prior chest x-ray 11/23/2017 HISTORY: Pneumonia TECHNIQUE: Single frontal view of the chest is obtained. FINDINGS: Findings are similar to prior exam. IMPRESSION: Correlate for congestive heart failure, pneumonia follow-up recommended.
[2017-11-24] MEDS: ASPIRIN 300 MG SUPP RECTAL SCH (09:14)
[2017-11-24] MEDS: PIPERACILLIN-TAZOBACTAM 3.375 GM in DEXTROSE/WATER 1 50ML.BAG IVPB SCH ×3 (09:38→23:45)
[2017-11-24 11:39] LABS: Basophils % (A) 0 %; Eosinophils % (A) 0 %; HCT 43.1 % (34.0-46.0); HGB 13.6 gm/dL (11.4-16.0); Lymphocytes % (A) 11 %; MCH 28.3 pg (25.0-35.0); MCHC 31.6 g/dL (31.0-37.0); MCV 89.4 fL (80.0-100.0); Mean Platelet Volume 8.6; Monocytes # (A) 0.6 k/uL (0-1.0); Monocytes % (A) 6 %; Neutrophils # (A) 7.3 k/uL (1.3-7.7); Neutrophils % (A) 82 %; Platelet Count 196 k/uL (150-450); RBC 4.82 m/uL (3.80-5.40); RDW 13.2 % (11.5-15.5); WBC 8.9 k/uL (3.8-10.6)
[2017-11-24 11:48] LABS: INR 1.1 (<1.2); Partial Thromboplastin Time 25.3 sec (22.0-30.0)
[2017-11-24 11:52] LABS: Anion Gap 11 mmol/L; Blood Urea Nitrogen 26 mg/dL (7-17); Calcium 8.2 mg/dL (8.4-10.2); Carbon Dioxide 23 mmol/L (22-30); Chloride 105 mmol/L (98-107); Glucose 158 mg/dL (74-99); Magnesium 2.2 mg/dL (1.6-2.3); Phosphorus 1.9 mg/dL (2.5-4.5); Potassium 3.9 mmol/L (3.5-5.1); Sodium 139 mmol/L (137-145)
[2017-11-24 12:41] LABS: Glucose,Whole Blood 142 mg/dL (75-99)
--- NOTE | 2017-11-24 13:35 | P.PN ---
Subjective Progress Note Date: 11/24/17 Principal diagnosis: Status epilepticus Patient continued to be lethargic but seems to be more arousable today opening her eyes spontaneously morning in bed but not following commands her son Tripp is at the bedside. Nursing staff reported no major events overnight but patient is still refusing to eat not following commands Objective - Vital Signs Vital signs: Vital Signs Temp 98.2 F 11/24/17 07:00 Pulse 95 11/24/17 07:00 Resp 18 11/24/17 08:00 BP 163/91 11/24/17 07:00 Pulse Ox 97 11/24/17 07:00 Intake & Output 11/23/17 11/24/17 11/24/17 18:59 06:59 18:59 Intake Total 475.0 0 Output Total 110 700 400 Balance 365.0 -700 -400 Weight 55.8 kg Intake: IV 475.0 Lacosamide IV 200 mg In 50 Sodium Chloride 0.9% 50 ml @ 100 mls/hr IVPB BID [facility] Rx#:[id number] Piperacillin-Tazobactam 3 25.0 .375 gm In Dextrose/Water 1 50ml.bag @ 12.5 mls/hr IVPB Q8HR [facility] Rx#: [id number] Sodium Chloride 0.9% 1, 300 000 ml @ 50 mls/hr IV . Q20H [facility] Rx#:[id number] levETIRAcetam IV 1,000 mg 100 In Saline 1 100ml.bag @ 400 mls/hr IVPB Q12HR [facility] Rx#:[id number] Oral 0 Output: Urine 110 700 400 Uretheral (Abarca) 700 400 Other: Voiding Method Indwelling Catheter # Voids 2 0 - Exam Gen.: in stated age Heart: Normal S1-S2 Lungs: Clear to auscultation bilaterally Abdomen: Soft, no tenderness, positive bowel sounds in all 4 quadrant no guarding or rebound Skin: No new rash Psych: Alert and oriented 0 does not follow command and nonverbal Neuro: No focal deficit Limited exam - Labs CBC & Chem 7: 11/24/17 10:47 11/24/17 10:47 Labs: Abnormal Lab Results - Last 24 Hours (Table) 11/23/17 11/24/17 11/24/17 Range/Units 17:15 00:10 06:10 BUN (7-17) mg/dL Creatinine (0.52-1.04) mg/dL Glucose (74-99) mg/dL POC Glucose (mg/dL) 132 H 125 H 130 H (75-99) mg/dL Calcium (8.4-10.2) mg/dL Phosphorus (2.5-4.5) mg/dL 11/24/17 11/24/17 Range/Units 10:47 12:30 BUN 26 H (7-17) mg/dL Creatinine 0.44 L (0.52-1.04) mg/dL Glucose 158 H (74-99) mg/dL POC Glucose (mg/dL) 142 H (75-99) mg/dL Calcium 8.2 L (8.4-10.2) mg/dL Phosphorus 1.9 L (2.5-4.5) mg/dL Assessment and Plan Assessment: 1. Status epilepticus. 2. Acute encephalopathy likely metabolic in nature on the baseline of dementia. 3. Slight elevation in troponin. 4. Aspiration pneumonia. 5. Severe debility and deconditioning. 6. History of CVA. 7. Hypertension. 8. Currently borderline hypotension. 9. Anemia. 10. Protein calorie malnutrition, moderate. 11. Serial debility and deconditioning. Advanced directive reviewed with the son which showed DO NOT RESUSCITATE code with no advance measures for nutrition and PEG tube is not recommended by the patient herself but her son attic would like to speak to her sister and his brother who are in charge in her decision making and would like to get back with me in the morning regarding tube feeding versus palliative care on discharge. Prognosis remained guarded and we will keep patient's nothing by mouth at this point due to high risk of aspiration continue with her medication all in the IV form plan discussed with the son at the bedside
--- NOTE | 2017-11-24 15:42 | P.PN ---
Subjective Progress Note Date: 11/24/17 Principal diagnosis: An 89-year-old female is being followed by the neurology service for altered mental status and status epilepticus. Patient was admitted to [facility] after being found unresponsive [place]. Downtime is unknown. She had seizure-like activity with tonic-clonic movements when EMS arrived. She was given Ativan and seizure subsided. She was brought to [facility] for evaluation. Patient had multiple episodes of seizure activity in the emergency room and was given multiple doses of Ativan and loaded with IV Keppra. IV Keppra was continued and patient continued to have seizure activity which was noted on her EEG. Vimpat 200 mg twice a day was also added. Patient has not shown any signs of overt seizure activity since then. Repeat EEG was done which still shows seizure activity but is much improved from yesterday. Computed tomography scan did not show any intracranial abnormality. MRI of the brain did not show any acute intracranial abnormality. MRI of the brain did show moderate cerebral atrophy and stable mild ventriculomegaly. Patient is awake but is not following commands. Patient gets restless and agitated at times. At the time of my evaluation, patient's resting comfortably in bed and appears to be in no acute distress. Objective - Vital Signs Vital signs: Vital Signs Temp 99.1 F 11/24/17 15:00 Pulse 107 H 11/24/17 15:00 Resp 20 11/24/17 15:00 BP 158/85 11/24/17 15:00 Pulse Ox 98 11/24/17 15:00 Intake & Output 11/23/17 11/24/17 11/24/17 18:59 06:59 18:59 Intake Total 475.0 0 Output Total 110 700 400 Balance 365.0 -700 -400 Weight 55.8 kg Intake: IV 475.0 Lacosamide IV 200 mg In 50 Sodium Chloride 0.9% 50 ml @ 100 mls/hr IVPB BID [facility] Rx#:[id number] Piperacillin-Tazobactam 3 25.0 .375 gm In Dextrose/Water 1 50ml.bag @ 12.5 mls/hr IVPB Q8HR [facility] Rx#: [id number] Sodium Chloride 0.9% 1, 300 000 ml @ 50 mls/hr IV . Q20H [facility] Rx#:[id number] levETIRAcetam IV 1,000 mg 100 In Saline 1 100ml.bag @ 400 mls/hr IVPB Q12HR [facility] Rx#:[id number] Oral 0 Output: Urine 110 700 400 Uretheral (Abarca) 700 400 Other: Voiding Method Indwelling Catheter # Voids 2 0 1 - Exam PHYSICAL EXAM: GENERAL APPEARANCE: Patient is a well-developed, female who appears to be in no acute distress. HEENT: Normocephalic, right periorbital bruising noted, no facial asymmetry is seen. Neck is supple with no masses felt. CARDIOVASCULAR: Regular rate and rhythm. ABDOMEN: Nontender, nondistended. EXTREMITIES: Show no edema or clubbing. NEUROLOGICAL EXAM: Patient is awake and alert but is not following commands. Patient was all 4 extremities purposefully. No obvious facial asymmetry is seen. No tremors or seizure-like activity noted. - Labs CBC & Chem 7: 11/24/17 10:47 11/24/17 10:47 Labs: Abnormal Lab Results - Last 24 Hours (Table) 11/23/17 11/24/17 11/24/17 Range/Units 17:15 00:10 06:10 BUN (7-17) mg/dL Creatinine (0.52-1.04) mg/dL Glucose (74-99) mg/dL POC Glucose (mg/dL) 132 H 125 H 130 H (75-99) mg/dL Calcium (8.4-10.2) mg/dL Phosphorus (2.5-4.5) mg/dL 11/24/17 11/24/17 Range/Units 10:47 12:30 BUN 26 H (7-17) mg/dL Creatinine 0.44 L (0.52-1.04) mg/dL Glucose 158 H (74-99) mg/dL POC Glucose (mg/dL) 142 H (75-99) mg/dL Calcium 8.2 L (8.4-10.2) mg/dL Phosphorus 1.9 L (2.5-4.5) mg/dL Assessment and Plan Plan: Impression: 1. Seizures 2. Aspiration pneumonia 3. Encephalopathy/most likely hypoxic/metabolic 4. Right periorbital contusion Recommendations: Patient's continues with altered mental status. Patient is moving all extremities but is not following commands. Patient has no overt seizure activity that is noted. Patient's repeat EEG shows seizure activity but is much improved since yesterday. Continue current antiepileptic medication dosing. Reportedly, patient has been having some aspiration and his receiving medication and fluid IV. Patient son was at the bedside and was spoken to at length per Dr. Echols regarding possibility of palliative care versus feeding tube placement. Patient's family to decide. Patient prognosis is guarded. Patient is currently a DO NOT RESUSCITATE order. I will order a repeat EEG to be done tomorrow. Continue neurological checks. Continue seizure precautions. I will continue to follow with you. Further recommendations to follow. I performed an examination of the patient and discussed the management with the AIRFIELD ENGINEER OFFICER. I have reviewed the AIRFIELD ENGINEER OFFICER notes and agree with the findings and plan of care.
--- NOTE | 2017-11-24 17:48 | P.PN ---
Subjective Progress Note Date: 11/24/17 Principal diagnosis: Acute status epilepticus This is an 89-year-old female with known history of chronic atrial fibrillation , hypertension, hyperlipidemia, patient was in the hospital about a month ago, and she was admitted at the time with symptoms of falling, and possibly a urinary tract infection patient lives at an assisted living facility, she was found on the floor unresponsive with face down. EMS arrived, and the patient was noted to have protruding tongue, cyanosis, shallow breathing, and unresponsive. She was later noted to have seizure-like activity with tonic clonic like activity, lasting about a minute. Versed was given by EMS, the seizure-like activity responded, but the patient remained unresponsive. Patient was also noted to have some ecchymosis in the right periorbital area. Brought into the ER, workup in the ER included a CT of the head which showed no evidence of bleeding and no evidence of infarct. In the ER she was noted to have seizure-like activity again and she was given Ativan followed by Keppra. The seizure activity. Sided, but the patient remained unresponsive except to deep painful stimuli. Patient was also noted to have a significantly swollen tongue, but she was able to protect her airways. Patient was admitted to the ICU, apparently she has a DO NOT RESUSCITATE CODE STATUS, and I was asked to see her on consultation. Patient is yet to be seen by neurology on consultation , and they were made aware of her condition. At night she was noted to have unequal pupils, and repeat CT of the brain was done. It did show cerebral atrophy no change compared to the previous CT that was done earlier, there was slight increase in the right periorbital soft tissue swelling noted. Blood pressure seems to be marginal, her mean is in the low 50s, hence I recommended more fluids to be given to the patient today. Urine output is extremely marginal about 10 mL per hour. Patient will likely improve with fluid boluses and increase maintenance IV fluid to 150 mL per hour. Today upon my evaluation , the patient remains unresponsive except withdrawal to deep painful stimuli, tries to open eyes, again upon deep painful stimuli, but does not follow any instructions, pupils are both equally reactive to light. Patient was reevaluated today on 11/23/2017, remains in the ICU, she is no different today compared to yesterday. Patient remains on IV Keppra, and Vimpat was added as per neurology. A shunt remains obtunded, opens eyes only to deep painful stimuli, but clearly not neurologically intact. MRI of the brain was nondiagnostic yesterday. CODE STATUS was discussed with family again yesterday, and patient remains DO NOT RESUSCITATE CODE STATUS. No evidence of clear-cut active seizure activities over the last 24 hours since admission, hence I plan to transfer the patient out of the ICU to a medical floor. Labs were all reviewed she has a relatively normal CBC and normal electrolytes are normal renal profile minimally elevated troponin. Reevaluated today on 11/24/2017, patient is definitely more awake today, but she mumbles, cannot understand what she is trying to say. Patient is awake but not following commands, and gets restless and agitated easily. She is not in any form of respiratory distress today. Objective - Vital Signs Vital signs: Vital Signs Temp 99.1 F 11/24/17 15:00 Pulse 107 H 11/24/17 15:00 Resp 20 11/24/17 15:39 BP 158/85 11/24/17 15:00 Pulse Ox 98 11/24/17 15:00 Intake & Output 11/23/17 11/24/17 11/24/17 18:59 06:59 18:59 Intake Total 475.0 0 Output Total 110 700 400 Balance 365.0 -700 -400 Weight 55.8 kg Intake: IV 475.0 Lacosamide IV 200 mg In 50 Sodium Chloride 0.9% 50 ml @ 100 mls/hr IVPB BID [facility] Rx#:[id number] Piperacillin-Tazobactam 3 25.0 .375 gm In Dextrose/Water 1 50ml.bag @ 12.5 mls/hr IVPB Q8HR [facility] Rx#: [id number] Sodium Chloride 0.9% 1, 300 000 ml @ 50 mls/hr IV . Q20H [facility] Rx#:[id number] levETIRAcetam IV 1,000 mg 100 In Saline 1 100ml.bag @ 400 mls/hr IVPB Q12HR [facility] Rx#:[id number] Oral 0 Output: Urine 110 700 400 Uretheral (Abarca) 700 400 Other: Voiding Method Indwelling Catheter # Voids 2 0 1 - Exam Physical exam revealed an 89-year-old female awake, but confused. In no distress. Head exam: Evidence of minimal and improved periorbital ecchymosis and hematoma noted on the right side.) Eye exam: PERRLA, EOMI. Periorbital hematoma noted. ENT exam: Dry mucous membranes. Tongue is swollen and edematous. Neck exam: Supple no neck masses no stridor. Respiratory exam: Evidence of kyphoscoliosis, diminished breath sounds at the bases, no crackles or rhonchi or wheezes.) Cardiovascular Exam: Irregular irregular rhythm, no S3 gallop, no murmur. Abdomen: Soft, nontender, no megaly, no rebound, no guarding, positive bowel sounds. Extremities exam: No clubbing, no edema, no cyanosis. Neurological exam: Awake but confused, does not follow instructions. Psychiatric exam: Cannot be assessed Skin exam: Relatively unremarkable except for the periorbital ecchymosis noted on the right side around the right eye. - Labs CBC & Chem 7: 11/24/17 10:47 11/24/17 10:47 Labs: Abnormal Lab Results - Last 24 Hours (Table) 11/24/17 11/24/17 11/24/17 Range/Units 00:10 06:10 10:47 BUN 26 H (7-17) mg/dL Creatinine 0.44 L (0.52-1.04) mg/dL Glucose 158 H (74-99) mg/dL POC Glucose (mg/dL) 125 H 130 H (75-99) mg/dL Calcium 8.2 L (8.4-10.2) mg/dL Phosphorus 1.9 L (2.5-4.5) mg/dL 11/24/17 Range/Units 12:30 BUN (7-17) mg/dL Creatinine (0.52-1.04) mg/dL Glucose (74-99) mg/dL POC Glucose (mg/dL) 142 H (75-99) mg/dL Calcium (8.4-10.2) mg/dL Phosphorus (2.5-4.5) mg/dL Assessment and Plan Assessment: Impression: 1 acute status epilepticus 2 post ictal mental status change 3 possible aspiration pneumonia, empirically on antibiotics in the form of Zosyn. 4 chronic atrial fibrillation 5 right periorbital ecchymosis and hematoma secondary to fall 6 tongue swelling secondary to seizure and trauma/biting of the tongue 7 multiple comorbidities including previous CVA, TIA, hearing disorder, hypertension, hyperlipidemia and glaucoma, kyphoscoliosis. 8 hypotension and oliguria likely secondary to dehydration, hence the patient will be given fluid boluses, we will monitor her renal status closely, no evidence of acute kidney injury at this point yet. Recommendation: Continue present treatment plan, discussed her condition with his son at bedside. Continue aspiration precautions, antibiotics, will follow. Time with Patient: Less than 30
[2017-11-24 18:13] LABS: Glucose,Whole Blood 138 mg/dL (75-99)
--- NOTE | 2017-11-24 18:24 | EEG ---
ELECTROENCEPHALOGRAM REPORT DATE OF SERVICE: 11/23/2017. REASON FOR TESTING: Seizures. This test was compared to her 11/22/2017 study. DESCRIPTION OF THE PROCEDURE: This EEG was performed using a 21 channel digital electroencephalograph, following international 10-20 system. CURRENT ANTIEPILEPTIC MEDICATIONS: Keppra and Vimpat. DESCRIPTION OF THE RECORDING: From the beginning of the tracing, and with the patient's eyes closed, the background rhythm was mostly consisting of 7 Hz theta frequency in the posterior occipital leads. No obvious asymmetry is seen. Occasional epileptiform discharges were seen in the left frontal temporal leads without any generalization. Photic stimulation was performed with no driving response seen. No pathological waves were elicited. Muscle artifacts and movement artifacts are seen. Hyperventilation was not performed. The patient remains awake throughout the study. Her EKG lead showed an irregularly irregular rhythm with a normal rate. INTERPRETATION: This awake EEG is abnormal due to the presence of occasional epileptiform discharges in the left frontal temporal region. Overall, this study is improved when compared to her 11/22/2017 study. Clinical correlation is recommended. MMODL / IJN: [id number] /
[2017-11-24] MEDS: LATANOPROST 0.005% OPHTH DROPS 2.5 ML BTL BOTH EYES SCH (20:18)
[2017-11-25 00:07] LABS: Glucose,Whole Blood 140 mg/dL (75-99)
[2017-11-25] MEDS: INSULIN ASPART 100 UNIT/ML 1 ML 10 ML VIAL SQ SCH ×4 (00:07→17:36)
[2017-11-25] MEDS: SODIUM CHLORIDE 0.9% 1,000 ML IV SCH ×2 (01:35→22:30)
[2017-11-25 05:51] LABS: Glucose,Whole Blood 125 mg/dL (75-99)
[2017-11-25] MEDS: DEXAMETHASONE SOD PHOSPHATE 4 MG/ML 1 ML VIAL IV SCH ×3 (06:09→17:36)
[2017-11-25] MEDS: levETIRAcetam IV 1,000 MG in SALINE 1 100ML.BAG IVPB SCH ×2 (08:24→20:52)
[2017-11-25] MEDS: ASPIRIN 300 MG SUPP RECTAL SCH (08:34)
[2017-11-25] MEDS: DORZOLAMIDE-TIMOLOL 2-0.5% DROPS 10 ML BTL BOTH EYES SCH ×2 (08:34→20:53)
[2017-11-25 08:47] LABS: Basophils % (A) 0 %; Eosinophils % (A) 0 %; HCT 47.3 % (34.0-46.0); Lymphocytes # (A) 1.7 k/uL (1.0-4.8); Lymphocytes % (A) 14 %; MCH 28.1 pg (25.0-35.0); MCHC 31.8 g/dL (31.0-37.0); MCV 88.3 fL (80.0-100.0); Mean Platelet Volume 8.9; Monocytes # (A) 0.8 k/uL (0-1.0); Monocytes % (A) 7 %; Neutrophils # (A) 9.6 k/uL (1.3-7.7); Neutrophils % (A) 79 %; Platelet Count 239 k/uL (150-450); RBC 5.36 m/uL (3.80-5.40); RDW 13.3 % (11.5-15.5); WBC 12.2 k/uL (3.8-10.6)
[2017-11-25 08:50] LABS: INR 1.2 (<1.2); Partial Thromboplastin Time 23.1 sec (22.0-30.0); Prothrombin Time 11.3 sec (9.0-12.0)
[2017-11-25 08:51] LABS: Anion Gap 15 mmol/L; Blood Urea Nitrogen 17 mg/dL (7-17); Calcium 8.7 mg/dL (8.4-10.2); Carbon Dioxide 25 mmol/L (22-30); Chloride 98 mmol/L (98-107); Glucose 146 mg/dL (74-99); Magnesium 2.1 mg/dL (1.6-2.3); Phosphorus 2.2 mg/dL (2.5-4.5); Potassium 4.4 mmol/L (3.5-5.1); Sodium 138 mmol/L (137-145)
[2017-11-25] MEDS: LACOSAMIDE IV 200 MG in SODIUM CHLORIDE 0.9% 50 ML IVPB SCH ×2 (10:33→22:30)
[2017-11-25] MEDS: PANTOPRAZOLE 40 MG/10 ML VIAL IVP SCH (10:41)
[2017-11-25] MEDS: PIPERACILLIN-TAZOBACTAM 3.375 GM in DEXTROSE/WATER 1 50ML.BAG IVPB SCH ×2 (11:18→16:07)
[2017-11-25 12:16] LABS: Glucose,Whole Blood 147 mg/dL (75-99)
--- NOTE | 2017-11-25 12:35 | P.PN ---
Subjective Progress Note Date: 11/25/17 Principal diagnosis: Status epilepticus, encephalopathy, change mental status, chronic A. fib, close head trauma, aspiration pneumonia, hypertension, hyperlipidemia. Dysphagia and aphasia. This is 89 years old female patient of Dr. Hernandez with past medical history of chronic atrial fibrillation, kyphoscoliosis, prior TIA, hypertension , hyperlipidemia, who was last admitted in October 2017 for right-sided pneumonia and increase troponin that was likely secondary to increased demand. Patient is meant admitted to [facility] after found unresponsive at home with her face down. EMS was called and reported that patient was cyanotic had shallow breathing but was unresponsive. She did have a seizure-like activity with tonic -clonic like activity lasting about a minute followed by Versed given by the EMS. Patient had multiple episodes of seizure in the ER where she did get multiple doses of Ativan and was loaded on Keppra. CT head showed no evidence of hemorrhage or infarct. But periorbital hematoma on the right was seen. Patient was evaluated at bedside. She is maintaining her oxygen but is hyperventilating. Patient is confused and keeps her eyes closed and does not respond to any questions. She does move her extremities spontaneously and to pain stimuli. Patient was noted to have unequal pupils in the night and a repeat CT scan was done which suggested cerebral trophy but no change compared to previous CT with increase in the right periorbital soft tissue swelling. Vital signs are stable with the readings in the low 86/43 at 10 AM which improved to 104/55 with fluids. Patient is tachycardic to 107 a regular saturating well at 2 L of oxygen. Labs suggestive leukocyte of 10.8, sodium 136 , creatinine 0.4, urine with no sign of infection was stopped urine drug screen negative digoxin levels are normal, CK levels are normal alcohol levels are normal. Continue Keppra 1000 IV twice a day. Seizure precautions to be taken. Fall precautions. Continue fluids 100 mL/h for possible dehydration. MRI ordered. EEG ordered. Neurology recommendations pending. 11/25: Status epilepticus has improved some, patient continued to have severe encephalopathy most likely postseizure/post closed head trauma with no sign of bleeding currently and possibility of severe hypoxic encephalopathy from the seizure time will tell how she will respond to it. I had long discussion with the daughter Gudelia answer all her question her comorbidity still very high and her prognosis very guarded. Continue current management family are not quite sure about artificial feeding though patient wishes originally not to do any artificial feeding or CPR. Will ask manager social responsibility and speech to evaluate patient for swallow speech and then for the possibility of rehab in one of the [facility]. Objective - Vital Signs Vital signs: Vital Signs Temp 97.9 F 11/25/17 07:00 Pulse 101 H 11/25/17 10:34 Resp 16 11/25/17 10:34 BP 177/104 11/25/17 10:34 Pulse Ox 94 L 11/25/17 10:34 Intake & Output 11/24/17 11/25/17 11/25/17 18:59 06:59 18:59 Output Total 400 4800 Balance -400 -4800 Weight 55.8 kg Output: Urine 400 4800 Uretheral (Abarca) 400 Other: Voiding Method Indwelling Catheter # Voids 1 1 # Bowel Movements 0 - Constitutional General appearance: Present: disheveled, no acute distress, thin. Absent: average body habitus, cooperative, mild distress, morbidly obese, obese, severe distress - EENT EENT Comment(s): Large hematoma and trauma on the right forehead area. Eyes: Present: abnormal pupil, normal appearance. Absent: anicteric sclerae, disc margins sharp, edentulous, EOMI, PERRLA, fundus normal, photophobia, dentition normal, poor dentition, ptosis, scleral icterus ENT: Present: hard of hearing, pharyngeal erythema. Absent: hearing grossly normal, NA/AT, normal oropharynx, other, thrush, tonsillar exudates, tonsillar swelling Ears: bilateral: normal - Neck Neck: Present: normal ROM. Absent: lymphadenopathy, other, rigidity, stridor, thyromegaly Carotids: bilateral: upstroke normal Thyroid: bilateral: normal size - Respiratory Respiratory: right: rales, rhonchi, bilateral: diminished, dullness, wheezing - Cardiovascular Rhythm: irregularly irregular Heart sounds: normal: S1, S2 Abnormal Heart Sounds: Present: systolic murmur, S3 Gallop - Gastrointestinal General gastrointestinal: Present: decreased bowel sounds, distended, soft. Absent: absent bowel sounds, hepatomegaly, hyperactive bowel sounds, normal bowel sounds, organomegaly, rigid, scaphoid, splenomegaly, tenderness, umbilical hernia, ventral hernia - Integumentary Integumentary: Present: normal, pale. Absent: calor, cellulitis, cyanotic, decreased turgor, flushed, jaundiced, normal turgor, rash, ulcer - Neurologic Neurologic: Absent: CNII-XII intact, focal deficits - Musculoskeletal Musculoskeletal: Present: generalized weakness. Absent: gait normal, strength equal bilaterally, right sided weakness, left sided weakness - Labs CBC & Chem 7: 11/25/17 08:01 11/25/17 08:01 Labs: Abnormal Lab Results - Last 24 Hours (Table) 11/24/17 11/24/17 11/25/17 Range/Units 12:30 17:53 00:06 WBC (3.8-10.6) k/uL Hct (34.0-46.0) % Neutrophils # (1.3-7.7) k/uL INR (<1.2) Creatinine (0.52-1.04) mg/dL Glucose (74-99) mg/dL POC Glucose (mg/dL) 142 H 138 H 140 H (75-99) mg/dL Phosphorus (2.5-4.5) mg/dL 11/25/17 11/25/17 11/25/17 Range/Units 05:50 08:01 08:01 WBC 12.2 H (3.8-10.6) k/uL Hct 47.3 H (34.0-46.0) % Neutrophils # 9.6 H (1.3-7.7) k/uL INR (<1.2) Creatinine 0.40 L (0.52-1.04) mg/dL Glucose 146 H (74-99) mg/dL POC Glucose (mg/dL) 125 H (75-99) mg/dL Phosphorus 2.2 L (2.5-4.5) mg/dL 11/25/17 11/25/17 Range/Units 08:01 12:10 WBC (3.8-10.6) k/uL Hct (34.0-46.0) % Neutrophils # (1.3-7.7) k/uL INR 1.2 H (<1.2) Creatinine (0.52-1.04) mg/dL Glucose (74-99) mg/dL POC Glucose (mg/dL) 147 H (75-99) mg/dL Phosphorus (2.5-4.5) mg/dL Assessment and Plan Plan: 1. Status epilepticus: Much better control so far through the weekend on current medication, another EEG was done and results still pending at this point patient to be seen and evaluated by neurology. 2 severe encephalopathy: Most likely hypoxic along with possibility of small CVA /TIA and close head trauma. The effect on her dependency become major at this point patient still having a problem with aphasia and dysphagia will be evaluated by speech family are against artificial feeding currently. 2. Chronic atrial fibrillation. Hold eliquis until stroke ruled out as there is high chance of bleeding in the first 24 hours. Keep patient nothing by mouth for possible aspiration. Continue labetalol 5 mg IV every 6 hours for systolic blood pressure more than 160 3. Chronic atrial fibrillation. Hold eliquis until stroke ruled out as there is high chance of bleeding in the first 24 hours. Keep patient nothing by mouth for possible aspiration. Continue labetalol 5 mg IV every 6 hours for systolic blood pressure more than 160. 4. Hypertension. Not control on current medication will add clonidine TTS patch 1. 5. Glaucoma. Continue eyedrops. 6. Hyperlipidemia. hold simvastatin as patient is NPO 7 Aspiration pneumonia continue Zosyn 3.35 mg iv q6 hr, seen pulmonary and still agree with the current management. 8. Right periorbital hematoma with tongue bite secondary to fall / seizure, no sign of brain hemorrhage currently. 9. Prior TIA - continue rectal aspirin 300 mg , hold statin. 10. DVT prophylaxis. SCD
[2017-11-25] MEDS ORDERED: cloNIDine 0.1 MG/24HR PATCH 1 PATCH PATCH TRANSDERM SCH (13:00)
--- NOTE | 2017-11-25 13:29 | P.PN ---
Subjective Progress Note Date: 11/25/17 Principal diagnosis: Aspirin aspiration pneumonia, acute status epilepticus This is an 89-year-old female with known history of chronic atrial fibrillation , hypertension, hyperlipidemia, patient was in the hospital about a month ago, and she was admitted at the time with symptoms of falling, and possibly a urinary tract infection patient lives at an assisted living facility, she was found on the floor unresponsive with face down. EMS arrived, and the patient was noted to have protruding tongue, cyanosis, shallow breathing, and unresponsive. She was later noted to have seizure-like activity with tonic clonic like activity, lasting about a minute. Versed was given by EMS, the seizure-like activity responded, but the patient remained unresponsive. Patient was also noted to have some ecchymosis in the right periorbital area. Brought into the ER, workup in the ER included a CT of the head which showed no evidence of bleeding and no evidence of infarct. In the ER she was noted to have seizure-like activity again and she was given Ativan followed by Keppra. The seizure activity. Sided, but the patient remained unresponsive except to deep painful stimuli. Patient was also noted to have a significantly swollen tongue, but she was able to protect her airways. Patient was admitted to the ICU, apparently she has a DO NOT RESUSCITATE CODE STATUS, and I was asked to see her on consultation. Patient is yet to be seen by neurology on consultation , and they were made aware of her condition. At night she was noted to have unequal pupils, and repeat CT of the brain was done. It did show cerebral atrophy no change compared to the previous CT that was done earlier, there was slight increase in the right periorbital soft tissue swelling noted. Blood pressure seems to be marginal, her mean is in the low 50s, hence I recommended more fluids to be given to the patient today. Urine output is extremely marginal about 10 mL per hour. Patient will likely improve with fluid boluses and increase maintenance IV fluid to 150 mL per hour. Today upon my evaluation , the patient remains unresponsive except withdrawal to deep painful stimuli, tries to open eyes, again upon deep painful stimuli, but does not follow any instructions, pupils are both equally reactive to light. Patient was reevaluated today on 11/23/2017, remains in the ICU, she is no different today compared to yesterday. Patient remains on IV Keppra, and Vimpat was added as per neurology. A shunt remains obtunded, opens eyes only to deep painful stimuli, but clearly not neurologically intact. MRI of the brain was nondiagnostic yesterday. CODE STATUS was discussed with family again yesterday, and patient remains DO NOT RESUSCITATE CODE STATUS. No evidence of clear-cut active seizure activities over the last 24 hours since admission, hence I plan to transfer the patient out of the ICU to a medical floor. Labs were all reviewed she has a relatively normal CBC and normal electrolytes are normal renal profile minimally elevated troponin. Reevaluated today on 11/24/2017, patient is definitely more awake today, but she mumbles, cannot understand what she is trying to say. Patient is awake but not following commands, and gets restless and agitated easily. She is not in any form of respiratory distress today. On 11/25/2017 patient seen in follow-up on medical surgical floor. She is awake alert, although very generally weak, denies any acute distress, patient has very limited verbal ability, and it is to understand her, and it's unclear whether this is her baseline. Her daughter is present at the bedside. Denies chest x-ray shows slight improvement in aeration, but persistent changes of pulmonary edema present. Patient clinically is stable, she is on room air, she is afebrile, hemodynamically stable. He is on empiric antibiotics in the form of Zosyn, she is on Decadron 4 mg every 6 hours, IV Keppra and she has not had any recurrence of seizure activity well in the hospital. We'll continue with current plan of treatment, maintain aspiration precautions, patient is progress was discussed with her daughter. Continue to follow. Objective - Vital Signs Vital signs: Vital Signs Temp 97.9 F 11/25/17 07:00 Pulse 101 H 11/25/17 10:34 Resp 16 11/25/17 10:34 BP 177/104 11/25/17 10:34 Pulse Ox 94 L 11/25/17 10:34 Intake & Output 11/24/17 11/25/17 11/25/17 18:59 06:59 18:59 Output Total 400 4800 Balance -400 -4800 Weight 55.8 kg 55.8 kg Output: Urine 400 4800 Uretheral (Abarca) 400 Other: Voiding Method Indwelling Catheter Indwelling Catheter # Voids 1 1 # Bowel Movements 0 - Exam Physical exam revealed an 89-year-old female awake, but confused. In no distress. Head exam: Evidence of minimal and improved periorbital ecchymosis and hematoma noted on the right side.) Eye exam: PERRLA, EOMI. Periorbital hematoma noted. ENT exam: Dry mucous membranes. Tongue is swollen and edematous. Neck exam: Supple no neck masses no stridor. Respiratory exam: Evidence of kyphoscoliosis, diminished breath sounds at the bases, no crackles or rhonchi or wheezes.) Cardiovascular Exam: Irregular irregular rhythm, no S3 gallop, no murmur. Abdomen: Soft, nontender, no megaly, no rebound, no guarding, positive bowel sounds. Extremities exam: No clubbing, no edema, no cyanosis. Neurological exam: Awake but confused, does not follow instructions. Psychiatric exam: Cannot be assessed Skin exam: Relatively unremarkable except for the periorbital ecchymosis noted on the right side around the right eye. - Labs CBC & Chem 7: 11/25/17 08:01 11/25/17 08:01 Labs: Abnormal Lab Results - Last 24 Hours (Table) 11/24/17 11/25/17 11/25/17 Range/Units 17:53 00:06 05:50 WBC (3.8-10.6) k/uL Hct (34.0-46.0) % Neutrophils # (1.3-7.7) k/uL INR (<1.2) Creatinine (0.52-1.04) mg/dL Glucose (74-99) mg/dL POC Glucose (mg/dL) 138 H 140 H 125 H (75-99) mg/dL Phosphorus (2.5-4.5) mg/dL 11/25/17 11/25/17 11/25/17 Range/Units 08:01 08:01 08:01 WBC 12.2 H (3.8-10.6) k/uL Hct 47.3 H (34.0-46.0) % Neutrophils # 9.6 H (1.3-7.7) k/uL INR 1.2 H (<1.2) Creatinine 0.40 L (0.52-1.04) mg/dL Glucose 146 H (74-99) mg/dL POC Glucose (mg/dL) (75-99) mg/dL Phosphorus 2.2 L (2.5-4.5) mg/dL 11/25/17 Range/Units 12:10 WBC (3.8-10.6) k/uL Hct (34.0-46.0) % Neutrophils # (1.3-7.7) k/uL INR (<1.2) Creatinine (0.52-1.04) mg/dL Glucose (74-99) mg/dL POC Glucose (mg/dL) 147 H (75-99) mg/dL Phosphorus (2.5-4.5) mg/dL Assessment and Plan Plan: Assessment: 1 acute status epilepticus 2 post ictal mental status change 3 possible aspiration pneumonia, empirically on antibiotics in the form of Zosyn. 4 chronic atrial fibrillation 5 right periorbital ecchymosis and hematoma secondary to fall 6 tongue swelling secondary to seizure and trauma/biting of the tongue 7 multiple comorbidities including previous CVA, TIA, hearing disorder, hypertension, hyperlipidemia and glaucoma, kyphoscoliosis. 8 hypotension and oliguria likely secondary to dehydration, hence the patient will be given fluid boluses, we will monitor her renal status closely, no evidence of acute kidney injury at this point yet. Recommendation: Today's chest x-ray shows slight improvement in the aeration, although the changes of pulmonary edema congestive heart failure persist. Likely patient remains stable, she is on room air, afebrile. Maintain aspiration precautions, continue empiric antibiotics in the form of Zosyn, continue IV steroids, nebulized treatments. Her CODE STATUS DO NOT RESUSCITATE. Head of the bed up 30 at all times, assistance and supervision with meals. I performed a history & physical examination of the patient and discussed their management with my nurse practitioner, Jojo Dodson. I reviewed the nurse practitioner's note and agree with the documented findings and plan of care. Lung sounds are diminished. The findings and the impression was discussed with the patient. I attest to the documentation by the nurse practitioner. Time with Patient: Less than 30
--- NOTE | 2017-11-25 13:49 | XR ---
EXAMINATION TYPE: XR chest 1V portable DATE OF EXAM: 11/25/2017 COMPARISON: Prior chest x-ray 11/24/2017 HISTORY: Pneumonia TECHNIQUE: Single frontal view of the chest is obtained. FINDINGS: Findings are similar to prior exam. IMPRESSION: Correlate for pneumonia, congestive heart failure. Follow-up recommended.
--- NOTE | 2017-11-25 15:48 | EEG ---
ELECTROENCEPHALOGRAM REPORT DATE OF SERVICE: 11/25/2017. REASON FOR TESTING: Seizures. CURRENT ANTIEPILEPTIC MEDICATIONS: Keppra and Vimpat. DESCRIPTION OF THE PROCEDURE: This EEG was performed using a 21 channel digital electroencephalograph, following international 10-20 system. DESCRIPTION OF THE RECORDING: From the beginning of the tracing, with patient's eyes closed, the background rhythm was mostly consisting of 7 Hz theta frequency in the posterior occipital leads. Recurrent epileptiform discharges are again seen in the left frontal region. These discharges are seen only in the left frontal region. Significant muscle artifacts are seen later in the tracing. Photic stimulation and hyperventilation were not performed. The patient remains awake throughout the tracing. INTERPRETATION: This awake EEG is abnormal due to the presence of recurrent epileptiform discharges mostly seen in the left frontal region. This is felt to be unchanged when compared to her 11/23/2017 study. Clinical correlation is recommended. MMCHENGL / IJN: [id number] /
--- NOTE | 2017-11-25 17:04 | P.PN ---
Subjective Progress Note Date: 11/25/17 Principal diagnosis: An 89-year-old female is being followed by the neurology service for altered mental status and status epilepticus. Patient was admitted to [facility] after being found unresponsive in her home [place]. Downtime is unknown. She had seizure-like activity with tonic-clonic movements when EMS arrived. She was given Ativan and seizure subsided. She was brought to [facility] for evaluation. Patient had multiple episodes of seizure activity in the emergency room and was given multiple doses of Ativan and loaded with IV Keppra. IV Keppra was continued and patient continued to have seizure activity which was noted on her EEG. Vimpat 200 mg twice a day was also added. Patient has not shown any signs of overt seizure activity since then. Repeat EEG was done which still shows seizure activity but is much improved from yesterday. Computed tomography scan did not show any intracranial abnormality. MRI of the brain did not show any acute intracranial abnormality. MRI of the brain did show moderate cerebral atrophy and stable mild ventriculomegaly. Patient is awake but is not following commands. Patient gets restless and agitated at times. At the time of my evaluation, patient's resting comfortably in bed and appears to be in no acute distress. 11/25/2017 Patient is an 89-year-old female who is being followed by the neurology service for status epilepticus. Patient mentation is slightly improved as she is making eye contact but speech is unintelligible. EEGs have been done which show seizure activity. EEG today shows epileptiform discharges but is stable as compared to yesterday. Family spoke to Dr. Hernandez regarding possible hospice versus PEG tube and palliative care. Family wishes to discuss this and they will let us know. At the time of my evaluation, patient is resting comfortably in bed and appears to be in no acute distress. No further seizures have been reported. Objective - Vital Signs Vital signs: Vital Signs Temp 97.8 F 11/25/17 14:25 Pulse 111 H 11/25/17 14:25 Resp 16 11/25/17 14:25 BP 162/93 11/25/17 14:25 Pulse Ox 95 11/25/17 14:25 Intake & Output 11/24/17 11/25/17 11/25/17 18:59 06:59 18:59 Output Total 400 4800 2300 Balance -400 -4800 -2300 Weight 55.8 kg 55.8 kg Output: Urine 400 4800 2300 Uretheral (Abarca) 400 Other: Voiding Method Indwelling Catheter Indwelling Catheter # Voids 1 1 # Bowel Movements 0 0 - Exam PHYSICAL EXAM: GENERAL APPEARANCE: Patient is a well-developed, female who appears to be in no acute distress. HEENT: Normocephalic, right periorbital bruising noted, no facial asymmetry is seen. Neck is supple with no masses felt. CARDIOVASCULAR: Regular rate and rhythm. ABDOMEN: Nontender, nondistended. EXTREMITIES: Show no edema or clubbing. NEUROLOGICAL EXAM: Patient is awake and alert but is not following commands. Patient was all 4 extremities purposefully. No obvious facial asymmetry is seen. No tremors or seizure-like activity noted. - Labs CBC & Chem 7: 11/25/17 08:01 11/25/17 08:01 Labs: Abnormal Lab Results - Last 24 Hours (Table) 11/24/17 11/25/17 11/25/17 Range/Units 17:53 00:06 05:50 WBC (3.8-10.6) k/uL Hct (34.0-46.0) % Neutrophils # (1.3-7.7) k/uL INR (<1.2) Creatinine (0.52-1.04) mg/dL Glucose (74-99) mg/dL POC Glucose (mg/dL) 138 H 140 H 125 H (75-99) mg/dL Phosphorus (2.5-4.5) mg/dL 11/25/17 11/25/17 11/25/17 Range/Units 08:01 08:01 08:01 WBC 12.2 H (3.8-10.6) k/uL Hct 47.3 H (34.0-46.0) % Neutrophils # 9.6 H (1.3-7.7) k/uL INR 1.2 H (<1.2) Creatinine 0.40 L (0.52-1.04) mg/dL Glucose 146 H (74-99) mg/dL POC Glucose (mg/dL) (75-99) mg/dL Phosphorus 2.2 L (2.5-4.5) mg/dL 11/25/17 Range/Units 12:10 WBC (3.8-10.6) k/uL Hct (34.0-46.0) % Neutrophils # (1.3-7.7) k/uL INR (<1.2) Creatinine (0.52-1.04) mg/dL Glucose (74-99) mg/dL POC Glucose (mg/dL) 147 H (75-99) mg/dL Phosphorus (2.5-4.5) mg/dL Assessment and Plan Plan: Impression: 1. Seizures 2. Aspiration pneumonia 3. Encephalopathy/most likely hypoxic/metabolic 4. Right periorbital contusion Recommendations: Patient's continues with altered mental status. Patient is moving all extremities but is not following commands. Patient has no overt seizure activity that is noted. Patient's repeat EEG shows seizure activity but is stable since yesterday. Continue current antiepileptic medication dosing. Reportedly, patient has been having some aspiration and his receiving medication and fluid IV. Family to decide regarding possibility of palliative care versus feeding tube placement. Patient prognosis is guarded. Patient is currently a DO NOT RESUSCITATE order. Continue neurological checks. Continue seizure precautions. I will continue to follow with you. Further recommendations to follow. I performed an examination of the patient and discussed the management with the FI[employer]. I have reviewed the [facility] notes and agree with the findings and plan of care.
[2017-11-25 17:11] LABS: Glucose,Whole Blood 145 mg/dL (75-99)
[2017-11-25] MEDS: LATANOPROST 0.005% OPHTH DROPS 2.5 ML BTL BOTH EYES SCH (20:53)
[2017-11-26] MEDS: DEXAMETHASONE SOD PHOSPHATE 4 MG/ML 1 ML VIAL IV SCH ×5 (00:11→23:31)
[2017-11-26] MEDS: PIPERACILLIN-TAZOBACTAM 3.375 GM in DEXTROSE/WATER 1 50ML.BAG IVPB SCH ×3 (00:11→16:51)
[2017-11-26 00:52] LABS: Glucose,Whole Blood 146 mg/dL (75-99)
[2017-11-26] MEDS: INSULIN ASPART 100 UNIT/ML 1 ML 10 ML VIAL SQ SCH ×4 (01:29→17:53)
[2017-11-26 06:16] LABS: Glucose,Whole Blood 143 mg/dL (75-99)
[2017-11-26] MEDS: levETIRAcetam IV 1,000 MG in SALINE 1 100ML.BAG IVPB SCH ×2 (07:48→22:30)
[2017-11-26 09:16] LABS: Basophils % (A) 0 %; Eosinophils % (A) 0 %; HCT 50.5 % (34.0-46.0); HGB 16.7 gm/dL (11.4-16.0); Lymphocytes % (A) 10 %; MCH 28.8 pg (25.0-35.0); MCHC 33.1 g/dL (31.0-37.0); MCV 87.2 fL (80.0-100.0); Mean Platelet Volume 8.6; Monocytes # (A) 0.6 k/uL (0-1.0); Monocytes % (A) 7 %; Neutrophils # (A) 8.1 k/uL (1.3-7.7); Neutrophils % (A) 82 %; Platelet Count 219 k/uL (150-450); RDW 13.4 % (11.5-15.5); WBC 9.8 k/uL (3.8-10.6)
--- NOTE | 2017-11-26 09:18 | XR ---
EXAMINATION TYPE: XR chest 1V portable DATE OF EXAM: 11/26/2017 Comparison: 11/24/2017, 11/25/2017 Clinical History: 89 year-old female shortness of breath, Possible aspiration pneumonia Findings: Rightward patient rotation alters normal cardiomediastinal contours. Heart size difficult to assess. There is further limitation due to patient's chin obscuring the right apex. Hyperinflation with relat chris upper lobe lucencies. Biapical pleural-parenchymal scarring is noted. Left base underpenetrated a nd not well assessed. There is been some interval improvement in aeration from 11/24/2017 with appeara nce relatively similar as compared to 11/25/2017. Left basilar opacity may be slightly increased. Impression: 1. Limited rotated and kyphotic exam. COPD with biapical pleural-parenchymal scarring. 2. Bibasilar atelectasis/infiltrates with small effusions. Disease has worsened at the left base. Asp iration pneumonia is a differential consideration. 3. There may be a background of mild CHF.
[2017-11-26 09:27] LABS: INR 1.2 (<1.2); Partial Thromboplastin Time 24.3 sec (22.0-30.0); Prothrombin Time 11.8 sec (9.0-12.0)
[2017-11-26 09:31] LABS: Anion Gap 14 mmol/L; Blood Urea Nitrogen 19 mg/dL (7-17); Calcium 8.8 mg/dL (8.4-10.2); Carbon Dioxide 25 mmol/L (22-30); Chloride 95 mmol/L (98-107); Glucose 151 mg/dL (74-99); Phosphorus 2.5 mg/dL (2.5-4.5); Potassium 3.3 mmol/L (3.5-5.1); Sodium 134 mmol/L (137-145)
[2017-11-26] MEDS: LACOSAMIDE IV 200 MG in SODIUM CHLORIDE 0.9% 50 ML IVPB SCH ×2 (09:53→23:30)
[2017-11-26] MEDS: PANTOPRAZOLE 40 MG/10 ML VIAL IVP SCH (09:54)
[2017-11-26] MEDS: ASPIRIN 300 MG SUPP RECTAL SCH (09:54)
[2017-11-26] MEDS: DORZOLAMIDE-TIMOLOL 2-0.5% DROPS 10 ML BTL BOTH EYES SCH ×2 (09:54→22:30)
--- NOTE | 2017-11-26 10:27 | P.PN ---
Subjective Progress Note Date: 11/26/17 Principal diagnosis: Aspirin aspiration pneumonia, acute status epilepticus This is an 89-year-old female with known history of chronic atrial fibrillation , hypertension, hyperlipidemia, patient was in the hospital about a month ago, and she was admitted at the time with symptoms of falling, and possibly a urinary tract infection patient lives at an assisted living facility, she was found on the floor unresponsive with face down. EMS arrived, and the patient was noted to have protruding tongue, cyanosis, shallow breathing, and unresponsive. She was later noted to have seizure-like activity with tonic clonic like activity, lasting about a minute. Versed was given by EMS, the seizure-like activity responded, but the patient remained unresponsive. Patient was also noted to have some ecchymosis in the right periorbital area. Brought into the ER, workup in the ER included a CT of the head which showed no evidence of bleeding and no evidence of infarct. In the ER she was noted to have seizure-like activity again and she was given Ativan followed by Keppra. The seizure activity. Sided, but the patient remained unresponsive except to deep painful stimuli. Patient was also noted to have a significantly swollen tongue, but she was able to protect her airways. Patient was admitted to the ICU, apparently she has a DO NOT RESUSCITATE CODE STATUS, and I was asked to see her on consultation. Patient is yet to be seen by neurology on consultation , and they were made aware of her condition. At night she was noted to have unequal pupils, and repeat CT of the brain was done. It did show cerebral atrophy no change compared to the previous CT that was done earlier, there was slight increase in the right periorbital soft tissue swelling noted. Blood pressure seems to be marginal, her mean is in the low 50s, hence I recommended more fluids to be given to the patient today. Urine output is extremely marginal about 10 mL per hour. Patient will likely improve with fluid boluses and increase maintenance IV fluid to 150 mL per hour. Today upon my evaluation , the patient remains unresponsive except withdrawal to deep painful stimuli, tries to open eyes, again upon deep painful stimuli, but does not follow any instructions, pupils are both equally reactive to light. Patient was reevaluated today on 11/23/2017, remains in the ICU, she is no different today compared to yesterday. Patient remains on IV Keppra, and Vimpat was added as per neurology. A shunt remains obtunded, opens eyes only to deep painful stimuli, but clearly not neurologically intact. MRI of the brain was nondiagnostic yesterday. CODE STATUS was discussed with family again yesterday, and patient remains DO NOT RESUSCITATE CODE STATUS. No evidence of clear-cut active seizure activities over the last 24 hours since admission, hence I plan to transfer the patient out of the ICU to a medical floor. Labs were all reviewed she has a relatively normal CBC and normal electrolytes are normal renal profile minimally elevated troponin. Reevaluated today on 11/24/2017, patient is definitely more awake today, but she mumbles, cannot understand what she is trying to say. Patient is awake but not following commands, and gets restless and agitated easily. She is not in any form of respiratory distress today. On 11/25/2017 patient seen in follow-up on medical surgical floor. She is awake alert, although very generally weak, denies any acute distress, patient has very limited verbal ability, and it is to understand her, and it's unclear whether this is her baseline. Her daughter is present at the bedside. Denies chest x-ray shows slight improvement in aeration, but persistent changes of pulmonary edema present. Patient clinically is stable, she is on room air, she is afebrile, hemodynamically stable. He is on empiric antibiotics in the form of Zosyn, she is on Decadron 4 mg every 6 hours, IV Keppra and she has not had any recurrence of seizure activity well in the hospital. We'll continue with current plan of treatment, maintain aspiration precautions, patient is progress was discussed with her daughter. Continue to follow. On 11/26/2017 patient seen in follow-up. She is awake, alert, she mumbles, and her speech is difficult to understand. In no distress, currently on room air, with pulse ox of 94%, afebrile, vital signs are stable. Son is at the bedside, and was updated on her condition, yesterday's chest x-ray showed improvement in aeration. He shouldn't remains on empiric antibiotics in the form of Zosyn for presumed aspiration pneumonia. She has a very weak cough, lung sounds are diminished, no rhonchi or wheezes noted. She is awaiting to be evaluated by speech pathology, remains nothing by mouth until then. Objective - Vital Signs Vital signs: Vital Signs Temp 97.5 F L 11/26/17 07:00 Pulse 109 H 11/26/17 07:00 Resp 16 11/26/17 07:00 BP 103/63 11/26/17 07:00 Pulse Ox 94 L 11/26/17 07:00 Intake & Output 11/25/17 11/26/17 11/26/17 18:59 06:59 18:59 Output Total 2299 2049 Balance -2299 -2049 Weight 55.8 kg Output: Urine 2299 2049 Other: Voiding Method Indwelling Catheter Indwelling Catheter # Voids 1 # Bowel Movements 0 - Exam Physical exam revealed an 89-year-old female awake, but confused. In no distress. Head exam: Evidence of minimal and improved periorbital ecchymosis and hematoma noted on the right side.) Eye exam: PERRLA, EOMI. Periorbital hematoma noted. ENT exam: Dry mucous membranes. Tongue is swollen and edematous. Neck exam: Supple no neck masses no stridor. Respiratory exam: Evidence of kyphoscoliosis, diminished breath sounds at the bases, no crackles or rhonchi or wheezes. Patient has a very weak cough Cardiovascular Exam: Irregular irregular rhythm, no S3 gallop, no murmur. Abdomen: Soft, nontender, no megaly, no rebound, no guarding, positive bowel sounds. Extremities exam: No clubbing, no edema, no cyanosis. Neurological exam: Awake but confused, does not follow instructions. Psychiatric exam: Cannot be assessed Skin exam: Relatively unremarkable except for the periorbital ecchymosis noted on the right side around the right eye. - Labs CBC & Chem 7: 11/26/17 08:41 11/26/17 08:41 Labs: Abnormal Lab Results - Last 24 Hours (Table) 11/25/17 11/25/17 11/26/17 Range/Units 12:10 17:06 00:45 RBC (3.80-5.40) m/uL Hgb (11.4-16.0) gm/dL Hct (34.0-46.0) % Neutrophils # (1.3-7.7) k/uL INR (<1.2) Sodium (137-145) mmol/L Potassium (3.5-5.1) mmol/L Chloride (98-107) mmol/L BUN (7-17) mg/dL Creatinine (0.52-1.04) mg/dL Glucose (74-99) mg/dL POC Glucose (mg/dL) 147 H 145 H 146 H (75-99) mg/dL 11/26/17 11/26/17 11/26/17 Range/Units 06:15 08:41 08:41 RBC 5.80 H (3.80-5.40) m/uL Hgb 16.7 H (11.4-16.0) gm/dL Hct 50.5 H (34.0-46.0) % Neutrophils # 8.1 H (1.3-7.7) k/uL INR (<1.2) Sodium 134 L (137-145) mmol/L Potassium 3.3 L (3.5-5.1) mmol/L Chloride 95 L (98-107) mmol/L BUN 19 H (7-17) mg/dL Creatinine 0.40 L (0.52-1.04) mg/dL Glucose 151 H (74-99) mg/dL POC Glucose (mg/dL) 143 H (75-99) mg/dL 11/26/17 Range/Units 08:41 RBC (3.80-5.40) m/uL Hgb (11.4-16.0) gm/dL Hct (34.0-46.0) % Neutrophils # (1.3-7.7) k/uL INR 1.2 H (<1.2) Sodium (137-145) mmol/L Potassium (3.5-5.1) mmol/L Chloride (98-107) mmol/L BUN (7-17) mg/dL Creatinine (0.52-1.04) mg/dL Glucose (74-99) mg/dL POC Glucose (mg/dL) (75-99) mg/dL Assessment and Plan Plan: Assessment: 1 acute status epilepticus 2 post ictal mental status change 3 possible aspiration pneumonia, empirically on antibiotics in the form of Zosyn. 4 chronic atrial fibrillation 5 right periorbital ecchymosis and hematoma secondary to fall 6 tongue swelling secondary to seizure and trauma/biting of the tongue 7 multiple comorbidities including previous CVA, TIA, hearing disorder, hypertension, hyperlipidemia and glaucoma, kyphoscoliosis. 8 hypotension and oliguria likely secondary to dehydration, hence the patient will be given fluid boluses, we will monitor her renal status closely, no evidence of acute kidney injury at this point yet. Recommendation: We will obtain speech evaluation, there is a high suspicion for aspiration. Clinically patient remains stable, in no acute distress, maintaining stable oxygenation on room air, afebrile, denies with empiric antibiotic coverage in the form of Zosyn, and nebulized bronchodilators. We'll follow with you. I performed a history & physical examination of the patient and discussed their management with my nurse practitioner, Jojo Dodson. I reviewed the nurse practitioner's note and agree with the documented findings and plan of care. Lung sounds are diminished. The findings and the impression was discussed with the patient. I attest to the documentation by the nurse practitioner. Time with Patient: Less than 30
[2017-11-26 12:23] LABS: Glucose,Whole Blood 158 mg/dL (75-99)
--- NOTE | 2017-11-26 15:13 | P.PN ---
Subjective Progress Note Date: 11/26/17 This is 89 years old female patient of Dr. Hernandez with past medical history of chronic atrial fibrillation, kyphoscoliosis, prior TIA, hypertension , hyperlipidemia, who was last admitted in October 2017 for right-sided pneumonia and increase troponin that was likely secondary to increased demand. Patient is meant admitted to [facility] after found unresponsive at home with her face down. EMS was called and reported that patient was cyanotic had shallow breathing but was unresponsive. She did have a seizure-like activity with tonic -clonic like activity lasting about a minute followed by Versed given by the EMS. Patient had multiple episodes of seizure in the ER where she did get multiple doses of Ativan and was loaded on Keppra. CT head showed no evidence of hemorrhage or infarct. But periorbital hematoma on the right was seen. Patient was evaluated at bedside. She is maintaining her oxygen but is hyperventilating. Patient is confused and keeps her eyes closed and does not respond to any questions. She does move her extremities spontaneously and to pain stimuli. Patient was noted to have unequal pupils in the night and a repeat CT scan was done which suggested cerebral trophy but no change compared to previous CT with increase in the right periorbital soft tissue swelling. Vital signs are stable with the readings in the low 86/43 at 10 AM which improved to 104/55 with fluids. Patient is tachycardic to 107 a regular saturating well at 2 L of oxygen. Labs suggestive leukocyte of 10.8, sodium 136 , creatinine 0.4, urine with no sign of infection was stopped urine drug screen negative digoxin levels are normal, CK levels are normal alcohol levels are normal. Continue Keppra 1000 IV twice a day. Seizure precautions to be taken. Fall precautions. Continue fluids 100 mL/h for possible dehydration. MRI ordered. EEG ordered. Neurology recommendations pending. 11/25: Status epilepticus has improved some, patient continued to have severe encephalopathy most likely postseizure/post closed head trauma with no sign of bleeding currently and possibility of severe hypoxic encephalopathy from the seizure time will tell how she will respond to it. I had long discussion with the daughter Gudelia answer all her question her comorbidity still very high and her prognosis very guarded. Continue current management family are not quite sure about artificial feeding though patient wishes originally not to do any artificial feeding or CPR. Will ask child protective services social worker and speech to evaluate patient for swallow speech and then for the possibility of rehab in one of the snf. 11/26: Repeat EEG is abnormal due to recurrent epileptiform discharges in the left frontal region. Immaculata to be unchanged from her previous November 23 study. A shunt has been doing well on IV Keppra with no further seizure activity noted. Seizure precautions in place. Patient is followed by Dr. Cortez. Patient is followed by Dr. Vance for aspiration pneumonia continued on Zosyn. Patient has been evaluated by speech therapy with initial recommendations for nothing by mouth. Family have decided that they would like comfort feeding only and patient will be on. With nectar thick liquids starting tomorrow. Family members have evaluated [facility] and they would like the patient to be discharged there. Patient will be transitioned to inpatient hospice until a bed is available. Objective - Vital Signs Vital signs: Vital Signs Temp 97.5 F L 11/26/17 07:00 Pulse 109 H 11/26/17 07:00 Resp 16 11/26/17 07:00 BP 103/63 11/26/17 07:00 Pulse Ox 94 L 11/26/17 07:00 Intake & Output 11/25/17 11/26/17 11/26/17 18:59 06:59 18:59 Output Total 2299 2049 Balance -2299 -2049 Weight 55.8 kg Output: Urine 2299 2049 Other: Voiding Method Indwelling Catheter Indwelling Catheter Indwelling Catheter # Voids 1 # Bowel Movements 0 - Exam General appearance: Present: disheveled, no acute distress, thin. Absent: average body habitus, cooperative, mild distress, morbidly obese, obese, severe distress - EENT EENT Comment(s): Large hematoma and trauma on the right forehead area. Eyes: Present: abnormal pupil, normal appearance. Absent: anicteric sclerae, disc margins sharp, edentulous, EOMI, PERRLA, fundus normal, photophobia, dentition normal, poor dentition, ptosis, scleral icterus ENT: Present: hard of hearing, pharyngeal erythema. Absent: hearing grossly normal, NA/AT, normal oropharynx, other, thrush, tonsillar exudates, tonsillar swelling Ears: bilateral: normal - Neck Neck: Present: normal ROM. Absent: lymphadenopathy, other, rigidity, stridor, thyromegaly Carotids: bilateral: upstroke normal Thyroid: bilateral: normal size - Respiratory Respiratory: right: rales, rhonchi, bilateral: diminished, dullness, wheezing - Cardiovascular Rhythm: irregularly irregular Heart sounds: normal: S1, S2 Abnormal Heart Sounds: Present: systolic murmur, S3 Gallop - Gastrointestinal General gastrointestinal: Present: decreased bowel sounds, distended, soft. Absent: absent bowel sounds, hepatomegaly, hyperactive bowel sounds, normal bowel sounds, organomegaly, rigid, scaphoid, splenomegaly, tenderness, umbilical hernia, ventral hernia - Integumentary Integumentary: Present: normal, pale. Absent: calor, cellulitis, cyanotic, decreased turgor, flushed, jaundiced, normal turgor, rash, ulcer - Neurologic Neurologic: Absent: CNII-XII intact, focal deficits - Musculoskeletal Musculoskeletal: Present: generalized weakness. Absent: gait normal, strength equal bilaterally, right sided weakness, left sided weakness - Labs CBC & Chem 7: 11/26/17 08:41 11/26/17 08:41 Labs: Abnormal Lab Results - Last 24 Hours (Table) 11/25/17 11/25/17 11/26/17 Range/Units 12:10 17:06 00:45 RBC (3.80-5.40) m/uL Hgb (11.4-16.0) gm/dL Hct (34.0-46.0) % Neutrophils # (1.3-7.7) k/uL INR (<1.2) Sodium (137-145) mmol/L Potassium (3.5-5.1) mmol/L Chloride (98-107) mmol/L BUN (7-17) mg/dL Creatinine (0.52-1.04) mg/dL Glucose (74-99) mg/dL POC Glucose (mg/dL) 147 H 145 H 146 H (75-99) mg/dL 11/26/17 11/26/17 11/26/17 Range/Units 06:15 08:41 08:41 RBC 5.80 H (3.80-5.40) m/uL Hgb 16.7 H (11.4-16.0) gm/dL Hct 50.5 H (34.0-46.0) % Neutrophils # 8.1 H (1.3-7.7) k/uL INR (<1.2) Sodium 134 L (137-145) mmol/L Potassium 3.3 L (3.5-5.1) mmol/L Chloride 95 L (98-107) mmol/L BUN 19 H (7-17) mg/dL Creatinine 0.40 L (0.52-1.04) mg/dL Glucose 151 H (74-99) mg/dL POC Glucose (mg/dL) 143 H (75-99) mg/dL 11/26/17 Range/Units 08:41 RBC (3.80-5.40) m/uL Hgb (11.4-16.0) gm/dL Hct (34.0-46.0) % Neutrophils # (1.3-7.7) k/uL INR 1.2 H (<1.2) Sodium (137-145) mmol/L Potassium (3.5-5.1) mmol/L Chloride (98-107) mmol/L BUN (7-17) mg/dL Creatinine (0.52-1.04) mg/dL Glucose (74-99) mg/dL POC Glucose (mg/dL) (75-99) mg/dL Assessment and Plan Plan: 1. Status epilepticus: Much better control so far through the weekend on current medication, another EEG as above. Consult with Dr. Cortez is appreciated. Patient is continued on IV Keppra. 2 severe encephalopathy: Most likely hypoxic along with possibility of small CVA /TIA and close head trauma. The effect on her dependency become major at this point patient still having a problem with aphasia and dysphagia will be evaluated by speech family are against artificial feeding currently. Speech therapy will start comfort diet tomorrow. No PEG tube placement 3. Chronic atrial fibrillation. Hold eliquis until stroke ruled out as there is high chance of bleeding in the first 24 hours. Keep patient nothing by mouth for possible aspiration. Continue labetalol 5 mg IV every 6 hours for systolic blood pressure more than 160. 4. Hypertension. Not control on current medication will add clonidine TTS patch 1. 5. Glaucoma. Continue eyedrops. 6. Hyperlipidemia. hold simvastatin as patient is NPO 7 Aspiration pneumonia continue Zosyn 3.35 mg iv q6 hr, seen pulmonary and still agree with the current management. 8. Right periorbital hematoma with tongue bite secondary to fall / seizure, no sign of brain hemorrhage currently. 9. Prior TIA - continue rectal aspirin 300 mg , hold statin. 10. DVT prophylaxis. SCD Discharge plan. Patient will be transitioned over to inpatient hospice until bed is available at the [facility] or patient may be discharged to [facility] by the end of the week. Impression and plan of care have been directed as dictated by the signing physician. Karyn Ramirez nurse practitioner acting as scribe for signing physician.
[2017-11-26 18:11] LABS: Glucose,Whole Blood 135 mg/dL (75-99)
[2017-11-26] MEDS: SODIUM CHLORIDE 0.9% 1,000 ML IV SCH (19:43)
[2017-11-26] MEDS: LATANOPROST 0.005% OPHTH DROPS 2.5 ML BTL BOTH EYES SCH (22:30)
[2017-11-27 01:04] LABS: Glucose,Whole Blood 149 mg/dL (75-99)
[2017-11-27] MEDS: PIPERACILLIN-TAZOBACTAM 3.375 GM in DEXTROSE/WATER 1 50ML.BAG IVPB SCH ×2 (01:17→07:57)
[2017-11-27] MEDS: INSULIN ASPART 100 UNIT/ML 1 ML 10 ML VIAL SQ SCH ×2 (01:18→06:31)
[2017-11-27] MEDS: DEXAMETHASONE SOD PHOSPHATE 4 MG/ML 1 ML VIAL IV SCH (06:30)
[2017-11-27 06:35] LABS: Glucose,Whole Blood 142 mg/dL (75-99)
[2017-11-27] MEDS: ASPIRIN 300 MG SUPP RECTAL SCH (08:10)
[2017-11-27] MEDS: DORZOLAMIDE-TIMOLOL 2-0.5% DROPS 10 ML BTL BOTH EYES SCH ×2 (08:10→20:00)
[2017-11-27] MEDS: PANTOPRAZOLE 40 MG/10 ML VIAL IVP SCH (08:10)
[2017-11-27] MEDS: LACOSAMIDE IV 200 MG in SODIUM CHLORIDE 0.9% 50 ML IVPB SCH (09:50)
--- NOTE | 2017-11-27 10:08 | P.PN ---
Subjective Progress Note Date: 11/27/17 Principal diagnosis: Pneumonia Progress note dated 11/27/2017 The patient is seen again today in follow-up. She is awake and alert. Her speech is mumbled and difficult to understand. We did talk to the family member yesterday. Chest x-ray showing improvement. She denies any respiratory difficulty or distress. She is on room air. Saturations are in the mid 90s. Hemodynamically is stable. Also spoke to a son who is a physician in the room. We did mention the fact that she was at high risk for aspiration and we will go ahead and get a swallow evaluation. Objective - Vital Signs Vital signs: Vital Signs Temp 99.3 F 11/27/17 07:00 Pulse 107 H 11/27/17 07:20 Resp 20 11/27/17 07:20 BP 158/92 11/27/17 07:00 Pulse Ox 96 11/27/17 07:00 Intake & Output 11/26/17 11/27/17 11/27/17 18:59 06:59 18:59 Intake Total 0 Output Total 1100 550 Balance -1100 -550 Weight 54.5 kg Intake: Intake, IV Titration 0 Amount Sodium Chloride 0.9% 1, 0 000 ml @ 50 mls/hr IV . Q20H [facility] Rx#:[id number] Oral 0 Output: Urine 1100 550 Other: Voiding Method Indwelling Catheter Indwelling Catheter Indwelling Catheter # Bowel Movements 1 - Exam Physical exam revealed an 89-year-old female awake, but confused. In no distress. Head exam: Evidence of minimal and improved periorbital ecchymosis and hematoma noted on the right side.) Eye exam: PERRLA, EOMI. Periorbital hematoma noted. ENT exam: Dry mucous membranes. Tongue is swollen and edematous. Neck exam: Supple no neck masses no stridor. Respiratory exam: Evidence of kyphoscoliosis, diminished breath sounds at the bases, no crackles or rhonchi or wheezes. Patient has a very weak cough Cardiovascular Exam: Irregular irregular rhythm, no S3 gallop, no murmur. Abdomen: Soft, nontender, no megaly, no rebound, no guarding, positive bowel sounds. Extremities exam: No clubbing, no edema, no cyanosis. Neurological exam: Awake but confused, does not follow instructions. Psychiatric exam: Cannot be assessed Skin exam: Relatively unremarkable except for the periorbital ecchymosis noted on the right side around the right eye. - Labs CBC & Chem 7: 11/26/17 08:41 11/26/17 08:41 Labs: Abnormal Lab Results - Last 24 Hours (Table) 11/26/17 11/26/17 11/27/17 Range/Units 12:20 18:10 00:57 POC Glucose (mg/dL) 158 H 135 H 149 H (75-99) mg/dL 11/27/17 Range/Units 06:30 POC Glucose (mg/dL) 142 H (75-99) mg/dL Assessment and Plan Assessment: Assessment: 1 acute status epilepticus 2 post ictal mental status change 3 possible aspiration pneumonia, empirically on antibiotics in the form of Zosyn. 4 chronic atrial fibrillation 5 right periorbital ecchymosis and hematoma secondary to fall 6 tongue swelling secondary to seizure and trauma/biting of the tongue 7 multiple comorbidities including previous CVA, TIA, hearing disorder, hypertension, hyperlipidemia and glaucoma, kyphoscoliosis. 8 hypotension and oliguria likely secondary to dehydration, hence the patient will be given fluid boluses, we will monitor her renal status closely, no evidence of acute kidney injury at this point yet. Plan: Plan dated 11/27/2017 We will order the speech evaluation on this patient for possible aspiration. She needs a swallow evaluation. The patient's chest x-ray showing gradual improvement. Clinically she looks stable both from a hemodynamic and respiratory standpoint. We'll see only as needed. No additional recommendations are made. Your treatment is appropriate. Time with Patient: Less than 30
[2017-11-27] MEDS: levETIRAcetam IV 1,000 MG in SALINE 1 100ML.BAG IVPB SCH ×2 (10:40→20:00)
[2017-11-27] MEDS: SODIUM CHLORIDE 0.9% 1,000 ML IV SCH (12:33)
[2017-11-27 15:30] VITALS: BMI 25.1
[2017-11-27 15:41] LABS: Basophils % (A) 0 %; Eosinophils % (A) 0 %; HCT 49.4 % (34.0-46.0); HGB 16.1 gm/dL (11.4-16.0); Lymphocytes % (A) 12 %; MCH 28.1 pg (25.0-35.0); MCHC 32.5 g/dL (31.0-37.0); MCV 86.5 fL (80.0-100.0); Mean Platelet Volume 8.2; Monocytes # (A) 0.7 k/uL (0-1.0); Monocytes % (A) 8 %; Neutrophils % (A) 79 %; Platelet Count 220 k/uL (150-450); RBC 5.71 m/uL (3.80-5.40); RDW 13.1 % (11.5-15.5); WBC 8.9 k/uL (3.8-10.6)
[2017-11-27 15:49] LABS: INR 1.2 (<1.2); Prothrombin Time 11.6 sec (9.0-12.0)
[2017-11-27 15:56] LABS: Anion Gap 11 mmol/L; Blood Urea Nitrogen 44 mg/dL (7-17); Calcium 9.2 mg/dL (8.4-10.2); Carbon Dioxide 29 mmol/L (22-30); Chloride 97 mmol/L (98-107); Glucose 148 mg/dL (74-99); Phosphorus 4.2 mg/dL (2.5-4.5); Potassium 3.2 mmol/L (3.5-5.1); Sodium 137 mmol/L (137-145)
[2017-11-27] MEDS: LATANOPROST 0.005% OPHTH DROPS 2.5 ML BTL BOTH EYES SCH (20:00)
[2017-11-28 01:04] LABS: Glucose,Whole Blood 138 mg/dL (75-99)
[2017-11-28] MEDS: DORZOLAMIDE-TIMOLOL 2-0.5% DROPS 10 ML BTL BOTH EYES SCH (07:21)
[2017-11-28] MEDS: SODIUM CHLORIDE 0.9% 1,000 ML IV SCH (07:22)
[2017-11-28] MEDS: levETIRAcetam IV 1,000 MG in SALINE 1 100ML.BAG IVPB SCH (07:22)
[2017-11-28 08:24] VITALS: BP 119/73; PULSE 91; RESP 24; TEMP 98.6
--- NOTE | 2017-11-28 13:04 | P.PN ---
Subjective Progress Note Date: 11/27/17 This is 89 years old female patient of Dr. Hernandez with past medical history of chronic atrial fibrillation, kyphoscoliosis, prior TIA, hypertension , hyperlipidemia, who was last admitted in October 2017 for right-sided pneumonia and increase troponin that was likely secondary to increased demand. Patient is meant admitted to [facility] after found unresponsive at home with her face down. EMS was called and reported that patient was cyanotic had shallow breathing but was unresponsive. She did have a seizure-like activity with tonic -clonic like activity lasting about a minute followed by Versed given by the EMS. Patient had multiple episodes of seizure in the ER where she did get multiple doses of Ativan and was loaded on Keppra. CT head showed no evidence of hemorrhage or infarct. But periorbital hematoma on the right was seen. Patient was evaluated at bedside. She is maintaining her oxygen but is hyperventilating. Patient is confused and keeps her eyes closed and does not respond to any questions. She does move her extremities spontaneously and to pain stimuli. Patient was noted to have unequal pupils in the night and a repeat CT scan was done which suggested cerebral trophy but no change compared to previous CT with increase in the right periorbital soft tissue swelling. Vital signs are stable with the readings in the low 86/43 at 10 AM which improved to 104/55 with fluids. Patient is tachycardic to 107 a regular saturating well at 2 L of oxygen. Labs suggestive leukocyte of 10.8, sodium 136 , creatinine 0.4, urine with no sign of infection was stopped urine drug screen negative digoxin levels are normal, CK levels are normal alcohol levels are normal. Continue Keppra 1000 IV twice a day. Seizure precautions to be taken. Fall precautions. Continue fluids 100 mL/h for possible dehydration. MRI ordered. EEG ordered. Neurology recommendations pending. 11/25: Status epilepticus has improved some, patient continued to have severe encephalopathy most likely postseizure/post closed head trauma with no sign of bleeding currently and possibility of severe hypoxic encephalopathy from the seizure time will tell how she will respond to it. I had long discussion with the daughter Gudelia answer all her question her comorbidity still very high and her prognosis very guarded. Continue current management family are not quite sure about artificial feeding though patient wishes originally not to do any artificial feeding or CPR. Will ask social media designer and speech to evaluate patient for swallow speech and then for the possibility of rehab in one of the retirement. 11/26: Repeat EEG is abnormal due to recurrent epileptiform discharges in the left frontal region. [place] to be unchanged from her previous November 23 study. A shunt has been doing well on IV Keppra with no further seizure activity noted. Seizure precautions in place. Patient is followed by Dr. Cortez. Patient is followed by Dr. Vance for aspiration pneumonia continued on Zosyn. Patient has been evaluated by speech therapy with initial recommendations for nothing by mouth. Family have decided that they would like comfort feeding only and patient will be on. With nectar thick liquids starting tomorrow. Family members have evaluated [facility] and they would like the patient to be discharged there. Patient will be transitioned to inpatient hospice until a bed is available. 11/27: Patient's family is planning to transition to [facility] as inpatient until bed is available at the [facility]. Son will be meeting with hospice tomorrow to sign papers. Patient will be started on comfort diet. Medications will be adjusted to address comfort care. She will continue on IV Keppra for now to avoid seizure activity. Questions answered and multiple family member at bedside. Objective - Vital Signs Vital signs: Vital Signs Temp 98.6 F 11/28/17 07:00 Pulse 91 11/28/17 07:00 Resp 24 11/28/17 07:00 BP 119/73 11/28/17 07:00 Pulse Ox 95 11/28/17 08:58 Intake & Output 11/27/17 11/28/17 11/28/17 18:59 06:59 18:59 Intake Total 400 120 Output Total 600 600 Balance -200 -480 Weight 54.5 kg 54.5 kg Intake: Oral 400 120 Output: Urine 600 600 Other: Voiding Method Indwelling Catheter Indwelling Catheter Indwelling Catheter # Voids 1 # Bowel Movements 1 - Exam General appearance: Present: disheveled, no acute distress, thin. Absent: average body habitus, cooperative, mild distress, morbidly obese, obese, severe distress - EENT EENT Comment(s): Large hematoma and trauma on the right forehead area. Eyes: Present: abnormal pupil, normal appearance. Absent: anicteric sclerae, disc margins sharp, edentulous, EOMI, PERRLA, fundus normal, photophobia, dentition normal, poor dentition, ptosis, scleral icterus ENT: Present: hard of hearing, pharyngeal erythema. Absent: hearing grossly normal, NA/AT, normal oropharynx, other, thrush, tonsillar exudates, tonsillar swelling Ears: bilateral: normal - Neck Neck: Present: normal ROM. Absent: lymphadenopathy, other, rigidity, stridor, thyromegaly Carotids: bilateral: upstroke normal Thyroid: bilateral: normal size - Respiratory Respiratory: right: rales, rhonchi, bilateral: diminished, dullness, wheezing - Cardiovascular Rhythm: irregularly irregular Heart sounds: normal: S1, S2 Abnormal Heart Sounds: Present: systolic murmur, S3 Gallop - Gastrointestinal General gastrointestinal: Present: decreased bowel sounds, distended, soft. Absent: absent bowel sounds, hepatomegaly, hyperactive bowel sounds, normal bowel sounds, organomegaly, rigid, scaphoid, splenomegaly, tenderness, umbilical hernia, ventral hernia - Integumentary Integumentary: Present: normal, pale. Absent: calor, cellulitis, cyanotic, decreased turgor, flushed, jaundiced, normal turgor, rash, ulcer - Neurologic Neurologic: Absent: CNII-XII intact, focal deficits - Musculoskeletal Musculoskeletal: Present: generalized weakness. Absent: gait normal, strength equal bilaterally, right sided weakness, left sided weakness - Labs CBC & Chem 7: 11/27/17 15:13 11/27/17 15:13 Labs: Abnormal Lab Results - Last 24 Hours (Table) 11/27/17 11/27/17 11/27/17 Range/Units 15:13 15:13 15:13 RBC 5.71 H (3.80-5.40) m/uL Hgb 16.1 H (11.4-16.0) gm/dL Hct 49.4 H (34.0-46.0) % INR 1.2 H (<1.2) Potassium 3.2 L (3.5-5.1) mmol/L Chloride 97 L (98-107) mmol/L BUN 44 H (7-17) mg/dL Glucose 148 H (74-99) mg/dL POC Glucose (mg/dL) (75-99) mg/dL 11/28/17 Range/Units 01:01 RBC (3.80-5.40) m/uL Hgb (11.4-16.0) gm/dL Hct (34.0-46.0) % INR (<1.2) Potassium (3.5-5.1) mmol/L Chloride (98-107) mmol/L BUN (7-17) mg/dL Glucose (74-99) mg/dL POC Glucose (mg/dL) 138 H (75-99) mg/dL Assessment and Plan Plan: 1. Status epilepticus: Much better control so far through the weekend on current medication, another EEG as above. Consult with Dr. Cortez is appreciated. Patient is continued on IV Keppra. 2 severe encephalopathy: Most likely hypoxic along with possibility of small CVA /TIA and close head trauma. The effect on her dependency become major at this point patient still having a problem with aphasia and dysphagia will be evaluated by speech family are against artificial feeding currently. Speech therapy will start comfort diet. No PEG tube placement 3. Chronic atrial fibrillation. Medications discontinued 4. Hypertension. Not control on current medication will add clonidine TTS patch 1. 5. Glaucoma. Continue eyedrops. 6. Hyperlipidemia. hold simvastatin as patient is NPO 7 Aspiration pneumonia discontinue IV antibiotics. 8. Right periorbital hematoma with tongue bite secondary to fall / seizure, no sign of brain hemorrhage currently. 9. Prior TIA - continue rectal aspirin 300 mg , hold statin. 10. DVT prophylaxis. SCD Discharge plan. Patient will be transitioned over to inpatient hospice until bed is available at the [facility] or patient may be discharged to [facility] by the end of the week. Impression and plan of care have been directed as dictated by the signing physician. Karyn Ramirez nurse practitioner acting as scribe for signing physician.
--- NOTE | 2017-11-28 13:11 | P.DS ---
Providers Date of admission: 11/21/17 17:23 Expected date of discharge: 11/28/17 Attending physician: Norm Magallanes MD Consults: 11/21/17 17:23 Consult Physician Routine Consulting Provider: Yudy Cortez Consult Reason/Comments: Recurrent seizure Do you want consulting provider notified?: Yes Consult Physician Stat Consulting Provider: Veronica Breaux Consult Reason/Comments: Status epilepticus Do you want consulting provider notified?: Already Contacted Primary care physician: Kyrie Hernandez [facility] Course: This is 89 years old female patient of Dr. Hernandez with past medical history of chronic atrial fibrillation, kyphoscoliosis, prior TIA, hypertension , hyperlipidemia, who was last admitted in October 2017 for right-sided pneumonia and increase troponin that was likely secondary to increased demand. Patient is meant admitted to [facility] after found unresponsive at home with her face down. EMS was called and reported that patient was cyanotic had shallow breathing but was unresponsive. She did have a seizure-like activity with tonic -clonic like activity lasting about a minute followed by Versed given by the EMS. Patient had multiple episodes of seizure in the ER where she did get multiple doses of Ativan and was loaded on Keppra. CT head showed no evidence of hemorrhage or infarct. But periorbital hematoma on the right was seen. Patient was evaluated at bedside. She is maintaining her oxygen but is hyperventilating. Patient is confused and keeps her eyes closed and does not respond to any questions. She does move her extremities spontaneously and to pain stimuli. Patient was noted to have unequal pupils in the night and a repeat CT scan was done which suggested cerebral trophy but no change compared to previous CT with increase in the right periorbital soft tissue swelling. Vital signs are stable with the readings in the low 86/43 at 10 AM which improved to 104/55 with fluids. Patient is tachycardic to 107 a regular saturating well at 2 L of oxygen. Labs suggestive leukocyte of 10.8, sodium 136 , creatinine 0.4, urine with no sign of infection was stopped urine drug screen negative digoxin levels are normal, CK levels are normal alcohol levels are normal. Continue Keppra 1000 IV twice a day. Seizure precautions to be taken. Fall precautions. Continue fluids 100 mL/h for possible dehydration. MRI ordered. EEG ordered. Neurology recommendations pending. 11/25: Status epilepticus has improved some, patient continued to have severe encephalopathy most likely postseizure/post closed head trauma with no sign of bleeding currently and possibility of severe hypoxic encephalopathy from the seizure time will tell how she will respond to it. I had long discussion with the daughter Gudelia answer all her question her comorbidity still very high and her prognosis very guarded. Continue current management family are not quite sure about artificial feeding though patient wishes originally not to do any artificial feeding or CPR. Will ask social problems specialist and speech to evaluate patient for swallow speech and then for the possibility of rehab in one of the group home. 11/26: Repeat EEG is abnormal due to recurrent epileptiform discharges in the left frontal region. [place] to be unchanged from her previous November 23 study. A shunt has been doing well on IV Keppra with no further seizure activity noted. Seizure precautions in place. Patient is followed by Dr. Cortez. Patient is followed by Dr. Vance for aspiration pneumonia continued on Zosyn. Patient has been evaluated by speech therapy with initial recommendations for nothing by mouth. Family have decided that they would like comfort feeding only and patient will be on. With nectar thick liquids starting tomorrow. Family members have evaluated [facility] and they would like the patient to be discharged there. Patient will be transitioned to inpatient hospice until a bed is available. 11/27: Patient's family is planning to transition to [facility] as inpatient until bed is available at the [facility]. Son will be meeting with hospice tomorrow to sign papers. Patient will be started on comfort diet. Medications will be adjusted to address comfort care. She will continue on IV Keppra for now to avoid seizure activity. Questions answered and multiple family member at bedside. 11/28: Patient Is to Meet with [facility] to Transition to Inpatient Hospice. Family Voices Satisfaction with Current Care. Patient Only Ate A Few Bites of Food and Has No Interest in Eating. Patient Appears to Be in No Acute Distress. Discharge Diagnoses: 1. Status epilepticus 2. 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 3. Chronic atrial fibrillation. 5. Glaucoma. 6. Hyperlipidemia. 7 Aspiration pneumonia 8. Right periorbital hematoma 9. Prior TIA Discharge plan. Patient will be transitioned over to inpatient hospice until bed is available at the [facility] or patient may be discharged to [facility] by the end of the week. Impression and plan of care have been directed as dictated by the signing physician. Karyn Ramirez nurse practitioner acting as scribe for signing physician. Patient Condition at Discharge: Stable Plan - Discharge Summary New Discharge Prescriptions: No Action Cholecalciferol [Vitamin D3] 2,000 unit PO DAILY Ubidecarenone [Co Q-10] 100 mg PO DAILY Aspirin 81 mg PO HS Latanoprost Ophth [Xalatan 0.005%] 1 drop BOTH EYES HS Digoxin [Digitek] 125 mcg PO DAILY Calcium Carbonate [Calcium] 1,200 mg PO DAILY Apixaban [Eliquis] 2.5 mg PO BID Simvastatin [Zocor] 10 mg PO HS Diltiazem HCl 30 mg PO TID Dorzolamide-Timolol 2%/0.5% [dorzolamide-Timolol 2%/0.5%] 1 drop BOTH EYES BID Discharge Medication List Cholecalciferol [Vitamin D3] 2,000 unit PO DAILY 03/23/15 [History] Ubidecarenone [Co Q-10] 100 mg PO DAILY 03/23/15 [History] Aspirin 81 mg PO HS 07/10/16 [History] Latanoprost Ophth [Xalatan 0.005%] 1 drop BOTH EYES HS 07/10/16 [History] Apixaban [Eliquis] 2.5 mg PO BID 09/06/16 [History] Calcium Carbonate [Calcium] 1,200 mg PO DAILY 09/06/16 [History] Digoxin [Digitek] 125 mcg PO DAILY 09/06/16 [History] Diltiazem HCl 30 mg PO TID 05/18/17 [History] Simvastatin [Zocor] 10 mg PO HS 05/18/17 [History] Dorzolamide-Timolol 2%/0.5% [dorzolamide-Timolol 2%/0.5%] 1 drop BOTH EYES BID 11/21/17 [History] Follow up Appointment(s)/Referral(s): Kyrie Hernandez MD [Primary Care Provider] - 1 Week Patient Instructions/Handouts: Hospice (DC) Activity/Diet/Wound Care/Special Instructions: DNR code status Activity as tolerated, up with assist, fall precautions. Discharge Disposition: DISCH TO [facility]
== END 2017-11-28 12:48 | disposition hospice, inpatient (51) | DRG 100 ==
LOC: EC 14:19 → 6ICU 17:23 → 4MS4W 11-23 12:25
PROVIDERS: ADMIT Internal Medicine; ATTEND Internal Medicine
DX: G40.901 Epilepsy, unspecified, not intractable, with status epilepticus (principal); G93.41 Metabolic encephalopathy; J69.0 Pneumonitis due to inhalation of food and vomit; R47.01 Aphasia; G93.1 Anoxic brain damage, not elsewhere classified; D64.9 Anemia, unspecified; E78.5 Hyperlipidemia, unspecified; E86.0 Dehydration; F03.90 Unspecified dementia, unspecified severity, without behavioral disturbance, psychotic disturbance, mood disturbance, and anxiety; H40.9 Unspecified glaucoma; H91.90 Unspecified hearing loss, unspecified ear; I10 Essential (primary) hypertension; Z51.5 Encounter for palliative care; Z66 Do not resuscitate; I48.2 Chronic atrial fibrillation; M41.9 Scoliosis, unspecified; R13.10 Dysphagia, unspecified; I95.9 Hypotension, unspecified; R06.4 Hyperventilation; R77.9 Abnormality of plasma protein, unspecified; G93.89 Other specified disorders of brain; G31.9 Degenerative disease of nervous system, unspecified; S01.552A Open bite of oral cavity, initial encounter; S00.11XA Contusion of right eyelid and periocular area, initial encounter; Z79.01 Long term (current) use of anticoagulants; Z79.82 Long term (current) use of aspirin; Z79.899 Other long term (current) drug therapy; Z86.73 Personal history of transient ischemic attack (TIA), and cerebral infarction without residual deficits; Z87.01 Personal history of pneumonia (recurrent); Z90.49 Acquired absence of other specified parts of digestive tract; Z91.018 Allergy to other foods; Z82.3 Family history of stroke; W19.XXXA Unspecified fall, initial encounter; Y92.009 Unspecified place in unspecified non-institutional (private) residence as the place of occurrence of the external cause
CPT/HCPCS: 36415; 51702; 70450; 70553; 71045; 72125; 72170; 80048; 80053; 80162; 80306; 80320; 81001; 82550; 82553; 83036; 83735; 84100; 84132; 84484; 85025; 85610; 85730; 86850; 86900; 86901; 93306; 94760; 95816; 95819; 96374; 96375; 96376; 99291

== ENCOUNTER 2017-11-28 12:50 | Inpatient (IN) | payer OTHER ==
[2017-11-28] MEDS ORDERED: DRY MOUTH SPRAY 44.3 SPRAY/44.3 ML SPRAY MUCOUS MEM PRN (12:52)
[2017-11-28] MEDS ORDERED: LORazepam 0.5 MG TAB PO PRN (12:52)
[2017-11-28] MEDS ORDERED: SCOPOLAMINE 1.5MG/72HR PATCH TRANSDERM PRN (12:52)
[2017-11-28] MEDS ORDERED: ARTIFICIAL TEARS-HYPROMELLOSE DROPS 15 ML BTL BOTH EYES PRN (12:52)
[2017-11-28] MEDS ORDERED: ACETAMINOPHEN SUPPOSITORY 650 MG SUPP RECTAL PRN (12:52)
[2017-11-28] MEDS ORDERED: DOCUSATE 100 MG CAP PO PRN (12:52)
[2017-11-28] MEDS ORDERED: HALOPERIDOL 0.5 MG TAB PO PRN (12:52)
[2017-11-28] MEDS ORDERED: ATROPINE OPHTH SOLN 1% 5ML BTL SUBLINGUAL PRN (12:52)
[2017-11-28] MEDS ORDERED: ACETAMINOPHEN TAB 325 MG TAB PO PRN (12:52)
[2017-11-28] MEDS ORDERED: HYDROCORTISONE 1% CREAM 30 GM TUBE TOPICAL PRN (12:52)
[2017-11-28] MEDS ORDERED: METOCLOPRAMIDE 5 MG/ML 2 ML VIAL IVP PRN (12:52)
[2017-11-28] MEDS ORDERED: MORPHINE ORAL SOL CONC 20 MG/ML BOTTLE PO PRN (13:01)
[2017-11-28 13:33] VITALS: BMI 25.1
[2017-11-29] MEDS ORDERED: MORPHINE CONC SOLN 10mg/0.5mL ORAL SYRG PO PRN (12:34)
--- NOTE | 2017-11-29 12:52 | P.HPIM ---
History of Present Illness H&P Date: 11/29/17 This is 89 years old female patient of Dr. Hernandez with past medical history of chronic atrial fibrillation, kyphoscoliosis, prior TIA, hypertension , hyperlipidemia, who was last admitted in October 2017 for right-sided pneumonia and increase troponin that was likely secondary to increased demand. Patient is meant admitted to [facility] after found unresponsive at home with her face down. EMS was called and reported that patient was cyanotic had shallow breathing but was unresponsive. She did have a seizure-like activity with tonic -clonic like activity lasting about a minute followed by Versed given by the EMS. Patient had multiple episodes of seizure in the ER where she did get multiple doses of Ativan and was loaded on Keppra. CT head showed no evidence of hemorrhage or infarct. But periorbital hematoma on the right was seen. Patient was evaluated at bedside. She is maintaining her oxygen but is hyperventilating. Patient is confused and keeps her eyes closed and does not respond to any questions. She does move her extremities spontaneously and to pain stimuli. Patient was noted to have unequal pupils in the night and a repeat CT scan was done which suggested cerebral trophy but no change compared to previous CT with increase in the right periorbital soft tissue swelling. Vital signs are stable with the readings in the low 86/43 at 10 AM which improved to 104/55 with fluids. Patient is tachycardic to 107 a regular saturating well at 2 L of oxygen. Labs suggestive leukocyte of 10.8, sodium 136 , creatinine 0.4, urine with no sign of infection was stopped urine drug screen negative digoxin levels are normal, CK levels are normal alcohol levels are normal. Continue Keppra 1000 IV twice a day. Seizure precautions to be taken. Fall precautions. Continue fluids 100 mL/h for possible dehydration. MRI ordered. EEG ordered. Neurology recommendations pending. 11/25: Status epilepticus has improved some, patient continued to have severe encephalopathy most likely postseizure/post closed head trauma with no sign of bleeding currently and possibility of severe hypoxic encephalopathy from the seizure time will tell how she will respond to it. I had long discussion with the daughter Gudelia answer all her question her comorbidity still very high and her prognosis very guarded. Continue current management family are not quite sure about artificial feeding though patient wishes originally not to do any artificial feeding or CPR. Will ask health and social care teacher and speech to evaluate patient for swallow speech and then for the possibility of rehab in one of the [facility]. 11/26: Repeat EEG is abnormal due to recurrent epileptiform discharges in the left frontal region. [place] to be unchanged from her previous November 23 study. A shunt has been doing well on IV Keppra with no further seizure activity noted. Seizure precautions in place. Patient is followed by Dr. Cortez. Patient is followed by Dr. Vance for aspiration pneumonia continued on Zosyn. Patient has been evaluated by speech therapy with initial recommendations for nothing by mouth. Family have decided that they would like comfort feeding only and patient will be on. With nectar thick liquids starting tomorrow. Family members have evaluated [facility] and they would like the patient to be discharged there. Patient will be transitioned to inpatient hospice until a bed is available. 11/27: Patient's family is planning to transition to [facility] as inpatient until bed is available at the [facility] home. Son will be meeting with hospice tomorrow to sign papers. Patient will be started on comfort diet. Medications will be adjusted to address comfort care. She will continue on IV Keppra for now to avoid seizure activity. Questions answered and multiple family member at bedside. 11/28: Patient Is to Meet with [facility] to Transition to Inpatient Hospice. Family Voices Satisfaction with Current Care. Patient Only Ate A Few Bites of Food and Has No Interest in Eating. Patient Appears to Be in No Acute Distress. Review of Systems ROS unobtainable: due to mental status Past Medical History Past Medical History: Atrial Fibrillation, CVA/TIA, Eye Disorder, Hearing Disorder / Deafness, Hyperlipidemia, Hypertension, Pneumonia Additional Past Medical History / Comment(s): Patient says she had a "questionable stroke"-no deficits, [place] bilaterally, bilateral eyes glaucoma, kyphoscoliosis. History of Any Multi-Drug Resistant Organisms: None Reported Past Surgical History: Adenoidectomy, Appendectomy, Cholecystectomy, Tonsillectomy Additional Past Surgical History / Comment(s): colonoscopy Past Anesthesia/Blood Transfusion Reactions: No Reported Reaction Past Psychological History: No Psychological Hx Reported Additional Psychological History / Comment(s): Pt resides at [facility]. She uses a walker to ambulate. She has a BSC. She no longer drives, she gets to appts by using [employer] bus. She has her meals served to her. She manages her own medications. Smoking Status: Never smoker Past Alcohol Use History: Occasional Additional Past Alcohol Use History / Comment(s): Patient is a lifelong nonsmoker, no illicit drug use, no alcohol use. She currently resides at [facility]. She uses a walker for ambulation. Past Drug Use History: None Reported - Past Family History Sister(s) Additional Family Medical History / Comment(s): Brain tumor- in her 50's. Mother Family Medical History: No Reported History Additional Family Medical History / Comment(s): Mother was healthy and lived to be 86yrs old. She from heart problems related to rheumatic fever Father Family Medical History: CVA/TIA Additional Family Medical History / Comment(s): Father from a CVA at the age of 70yrs. Brother(s) Additional Family Medical History / Comment(s): Patient has 1 brother with no major medical problems. Daughter(s) Additional Family Medical History / Comment(s): Patient has 5 children: 3 sons and 2 daughters with no major medical problems. Medications and Allergies Home Medications Medication Instructions Recorded Confirmed Type Cholecalciferol [Vitamin D3] 2,000 unit PO DAILY 03/23/15 11/28/17 History Ubidecarenone [Co Q-10] 100 mg PO DAILY 03/23/15 11/28/17 History Aspirin 81 mg PO HS 07/10/16 11/28/17 History Latanoprost Ophth [Xalatan 0.005%] 1 drop BOTH EYES HS 07/10/16 11/28/17 History Apixaban [Eliquis] 2.5 mg PO BID 09/06/16 11/28/17 History Calcium Carbonate [Calcium] 1,200 mg PO DAILY 09/06/16 11/28/17 History Digoxin [Digitek] 125 mcg PO DAILY 09/06/16 11/28/17 History Diltiazem HCl 30 mg PO TID 05/18/17 11/28/17 History Simvastatin [Zocor] 10 mg PO HS 05/18/17 11/28/17 History Dorzolamide-Timolol 2%/0.5% 1 drop BOTH EYES BID 11/21/17 11/28/17 History [dorzolamide-Timolol 2%/0.5%] Allergies Allergy/AdvReac Type Severity Reaction Status Date / Time chocolate flavor Allergy Unknown Verified 11/28/17 13:18 Physical Exam Vitals: Intake and Output 11/28/17 11/29/17 11/29/17 22:59 06:59 14:59 Intake Total 0 0 Output Total 200 600 Balance -200 -600 Intake: Oral 0 0 Output: Urine 200 600 Other: Voiding Method Indwelling Catheter Indwelling Catheter - Constitutional General appearance: no acute distress - EENT Eyes: normal appearance - Respiratory Respiratory: bilateral: diminished, negative: prolonged expiration, prolonged inspiration - Cardiovascular Rhythm: irregularly irregular Heart sounds: normal: S1, S2 Abnormal Heart Sounds: systolic murmur - Gastrointestinal General gastrointestinal: soft - Psychiatric Psychiatric: appropriate affect Thrombosis Risk Factor Assmnt - DVT/VTE Prophylaxis DVT/VTE Prophylaxis: Contraindicated - See note Assessment and Plan Plan: 1. Status epilepticus 2. 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 3. Chronic atrial fibrillation. 5. Glaucoma. 6. Hyperlipidemia. 7 Aspiration pneumonia 8. Right periorbital hematoma 9. Prior TIA Discharge plan. Inpatient hospice until bed is available at the [facility], most likely over the weekend. Impression and plan of care have been directed as dictated by the signing physician. Karyn Ramirez nurse practitioner acting as scribe for signing physician.
== END 2017-11-29 16:12 | disposition other institution (70) | DRG 100 ==
LOC: 4MS4W 12:50
PROVIDERS: ADMIT Internal Medicine Geriatric Medicine; ATTEND Internal Medicine Geriatric Medicine
DX: G40.901 Epilepsy, unspecified, not intractable, with status epilepticus (principal); I63.9 Cerebral infarction, unspecified; J69.0 Pneumonitis due to inhalation of food and vomit; G93.1 Anoxic brain damage, not elsewhere classified; E78.5 Hyperlipidemia, unspecified; H40.9 Unspecified glaucoma; H91.90 Unspecified hearing loss, unspecified ear; I10 Essential (primary) hypertension; I48.2 Chronic atrial fibrillation; M41.9 Scoliosis, unspecified; S05.11XA Contusion of eyeball and orbital tissues, right eye, initial encounter; S09.90XA Unspecified injury of head, initial encounter; Z51.5 Encounter for palliative care; Z79.01 Long term (current) use of anticoagulants; Z79.82 Long term (current) use of aspirin; Z82.3 Family history of stroke; Z86.73 Personal history of transient ischemic attack (TIA), and cerebral infarction without residual deficits; Z87.01 Personal history of pneumonia (recurrent); Z66 Do not resuscitate; R00.0 Tachycardia, unspecified